=== PATIENT | male | born 1950 | race Caucasian/White ===

== ENCOUNTER 2018-11-12 17:15 | Emergency (ER) | payer MEDICARE ==
[2018-11-12 17:19] VITALS: BP 144/72; PULSE 60; RESP 18; TEMP 98.1
--- NOTE | 2018-11-12 18:10 | ED ---
General Adult HPI - General Chief complaint: Upper Respiratory Infection Stated complaint: head cold/congestion Time Seen by Provider: 11/12/18 17:21 Source: patient Mode of arrival: ambulatory Limitations: no limitations - History of Present Illness Initial comments: Patient is 68-year-old male presenting to emergency Department with earache and nasal congestion. Patient reports the symptoms started 2 days ago and have been progressively increasing severity. Patient reports the pain is localized in the frontal maxillary sinus regions. Patient also reports mild bilateral otalgia. Patient reports rhinorrhea of her past 2 days with yellowish to clear discharge. Patient reports that he is a smoker. Patient reports sore throat and an intermittent dry cough. Patient reports his sinus headache that is not resolving. Patient denies taking any medication to alleviate the pain. Patient reports having a stroke 4 years ago which caused him to lose his right peripheral vision. - Related Data Home Medications Medication Instructions Recorded Confirmed Aspirin 325 mg PO DAILY 08/27/15 01/19/16 Atorvastatin [Lipitor] 20 mg PO HS 08/27/15 01/19/16 Clopidogrel [Plavix] 75 mg PO DAILY 08/27/15 01/19/16 Ergocalciferol [Vitamin D2 50,000 unit PO FR 08/27/15 01/19/16 (DRISDOL)] Famotidine [Pepcid] 20 mg PO BID 08/27/15 01/19/16 Lisinopril [Zestril] 5 mg PO QAM 08/27/15 01/19/16 traMADol HCL [Ultram] 50 mg PO Q12HR PRN 08/27/15 01/19/16 Varenicline Tartrate [Chantix] 1 tab PO DIRECTED 01/15/16 01/19/16 traZODone HCL [Desyrel] 50 mg PO HS 01/15/16 01/19/16 Previous Rx's Medication Instructions Recorded Amoxicillin/Potassium Clav 1 tab PO Q12HR #20 tab 11/12/18 [Augmentin 875-125 Tablet] Allergies Allergy/AdvReac Type Severity Reaction Status Date / Time Penicillins Allergy Rash/Hives Verified 11/12/18 17:19 Sulfa (Sulfonamide Allergy Unknown Verified 11/12/18 17:19 Antibiotics) Review of Systems ROS Statement: Those systems with pertinent positive or pertinent negative responses have been documented in the HPI. ROS Other: All systems not noted in ROS Statement are negative. Past Medical History Past Medical History: No Reported History History of Any Multi-Drug Resistant Organisms: None Reported Past Surgical History: No Surgical Hx Reported Past Psychological History: No Psychological Hx Reported Smoking Status: Current every day smoker Past Alcohol Use History: None Reported Past Drug Use History: Marijuana General Exam - General Exam Comments Initial Comments: Neuro exam unremarkable Limitations: no limitations General appearance: alert, in no apparent distress Head exam: Present: atraumatic, normocephalic, normal inspection Eye exam: Present: normal appearance, PERRL, EOMI, other (Absent right peripheral vision). Absent: conjunctival injection Pupils: Present: normal accommodation ENT exam: Present: normal oropharynx, TM's normal bilaterally (Left tympanic membranes), other (Maxillary and frontal sinus tenderness) Neck exam: Present: normal inspection ( inflamed.), lymphadenopathy Respiratory exam: Present: normal lung sounds bilaterally Cardiovascular Exam: Present: regular rate, normal rhythm, normal heart sounds Neurological exam: Present: alert, oriented X3 Psychiatric exam: Present: normal affect, normal mood Skin exam: Present: warm, normal color Course Vital Signs 11/12/18 17:16 Temperature 98.1 F Pulse Rate 60 Respiratory 18 Rate Blood Pressure 144/72 O2 Sat by Pulse 96 Oximetry Medical Decision Making - Medical Decision Making Patient is 68-year-old male presented to emergency department with earache and sinus congestion.HPI and physical examination I suspect the patient to have a sinus infection. Patient will be placed on a ten-day course of Augmentin. Patient had a mild reaction to penicillin when he was very young but states that he had ampicillin afterwards without any adverse side effects. Patient advised to follow up with primary care. Patient advised to return to emergency department ig symptoms worsen. I counseled the patient for smoking cessation for greater than 3 minutes. Case discussed with position. Disposition Clinical Impression: Sinusitis Disposition: HOME SELF-CARE Condition: Stable Additional Instructions: Please take prescribed medication as directed. Please follow-up with primary care. Please return to emergency department if symptoms worsen. Is patient prescribed a controlled substance at d/c from ED?: No Referrals: Anabella Will DO [Primary Care Provider] - 1-2 days Time of Disposition: 18:04
== END 2018-11-12 19:00 | disposition home or self-care (01) ==
LOC: EC 17:15
DX: J32.9 Chronic sinusitis, unspecified (principal); Z71.6 Tobacco abuse counseling; F17.200 Nicotine dependence, unspecified, uncomplicated; Z79.82 Long term (current) use of aspirin; Z79.02 Long term (current) use of antithrombotics/antiplatelets; Z79.899 Other long term (current) drug therapy; Z88.0 Allergy status to penicillin; Z88.2 Allergy status to sulfonamides
CPT/HCPCS: 99282

== ENCOUNTER 2019-01-10 18:14 | Inpatient (IN) | payer MEDICARE ==
[2019-01-10] MEDS ORDERED: SODIUM CHLORIDE 0.9% 1,000 ML IV STA ×4 (18:41→20:19)
--- NOTE | 2019-01-10 18:42 | ED ---
Fever HPI - General Stated Complaint: fever Time Seen by Provider: 01/10/19 18:41 Source: RN notes reviewed, old records reviewed - History of Present Illness Initial Comments: This is a 68-year-old male the ER for evaluation presented by family for not feeling well depression secondary to recent passing. Denies abdominal pain no nausea no vomiting. Patient has been having increasingly symptoms of weakness and not feeling well. Mild nausea no vomiting no diarrhea. Patient also presented with persistent nausea vomiting and fever MD Complaint: fever, weakness, other ([place]) -: days(s) Temperature Source: oral Associated Symptoms: chills, myalgias, abdominal pain, nausea, vomiting Treatments Prior to Arrival: none - Related Data Home Medications Medication Instructions Recorded Confirmed Clopidogrel [Plavix] 75 mg PO DAILY 08/27/15 01/10/19 Famotidine [Pepcid] 20 mg PO BID 08/27/15 01/10/19 FLUoxetine HCL [PROzac] 20 mg PO DAILY 01/10/19 01/10/19 Aspirin EC [Ecotrin] 325 mg PO DAILY 01/12/19 01/12/19 Atorvastatin [Lipitor] 40 mg PO DAILY 01/12/19 01/12/19 Lisinopril [Zestril] 10 mg PO DAILY 01/12/19 01/12/19 amLODIPine BESYLATE 5 mg PO DAILY 01/12/19 01/12/19 traMADol HCl [Ultram] 50 mg PO BID 01/12/19 01/12/19 Allergies Allergy/AdvReac Type Severity Reaction Status Date / Time Penicillins Allergy Rash/Hives Verified 01/10/19 19:02 Sulfa (Sulfonamide Allergy Unknown Verified 01/10/19 19:02 Antibiotics) Review of Systems ROS Statement: Those systems with pertinent positive or pertinent negative responses have been documented in the HPI. ROS Other: All systems not noted in ROS Statement are negative. Past Medical History Past Medical History: No Reported History History of Any Multi-Drug Resistant Organisms: None Reported Past Surgical History: No Surgical Hx Reported Past Psychological History: No Psychological Hx Reported Smoking Status: Current every day smoker Past Alcohol Use History: None Reported Past Drug Use History: Marijuana General Exam General appearance: alert, lethargic, cachectic Head exam: Present: atraumatic, normocephalic, normal inspection Eye exam: Present: normal appearance, PERRL, EOMI. Absent: scleral icterus, conjunctival injection, periorbital swelling ENT exam: Present: normal exam, mucous membranes dry Neck exam: Present: normal inspection. Absent: tenderness, meningismus, lymphadenopathy Respiratory exam: Present: normal lung sounds bilaterally. Absent: respiratory distress, wheezes, rales, rhonchi, stridor Cardiovascular Exam: Present: regular rate, normal rhythm, normal heart sounds. Absent: systolic murmur, diastolic murmur, rubs, gallop, clicks GI/Abdominal exam: Present: soft, normal bowel sounds. Absent: distended, tenderness, guarding, rebound, rigid Extremities exam: Present: normal inspection, full ROM, normal capillary refill. Absent: tenderness, pedal edema, joint swelling, calf tenderness Back exam: Present: normal inspection Neurological exam: Present: alert, oriented X3, CN II-XII intact Psychiatric exam: Present: normal affect, normal mood Skin exam: Present: warm, dry, intact, normal color. Absent: rash Course Vital Signs 01/10/19 01/10/19 01/10/19 18:34 18:38 19:00 Temperature 102.9 F H Pulse Rate 83 Pulse Rate [ Pulse Oximetery ] Respiratory 19 Rate Blood Pressure 156/88 156/88 Blood Pressure [Left Arm] O2 Sat by Pulse 92 L 95 94 L Oximetry 01/10/19 01/10/19 01/10/19 19:41 20:00 21:00 Temperature Pulse Rate 85 Pulse Rate [ Pulse Oximetery ] Respiratory 18 Rate Blood Pressure 139/56 139/56 135/65 Blood Pressure [Left Arm] O2 Sat by Pulse 96 Oximetry 01/10/19 01/10/19 01/10/19 21:09 22:00 23:00 Temperature 99.9 F H Pulse Rate 83 87 Pulse Rate [ Pulse Oximetery ] Respiratory 18 Rate Blood Pressure 144/65 135/66 126/74 Blood Pressure [Left Arm] O2 Sat by Pulse 96 93 L Oximetry 01/10/19 01/11/19 01/11/19 23:34 00:00 01:00 Temperature 99.3 F Pulse Rate 77 73 68 Pulse Rate [ Pulse Oximetery ] Respiratory 18 Rate Blood Pressure 131/73 131/73 103/54 Blood Pressure [Left Arm] O2 Sat by Pulse 95 Oximetry 01/11/19 01/11/19 01/11/19 02:00 02:12 03:00 Temperature 98.7 F Pulse Rate 62 75 65 Pulse Rate [ Pulse Oximetery ] Respiratory 18 Rate Blood Pressure 140/105 124/72 124/71 Blood Pressure [Left Arm] O2 Sat by Pulse 96 Oximetry 01/11/19 01/11/19 01/11/19 04:00 04:04 05:00 Temperature 98.8 F Pulse Rate 72 72 65 Pulse Rate [ Pulse Oximetery ] Respiratory 18 Rate Blood Pressure 148/87 148/87 148/87 Blood Pressure [Left Arm] O2 Sat by Pulse 99 Oximetry 01/11/19 01/11/19 01/11/19 06:00 06:41 07:00 Temperature 98.5 F Pulse Rate 60 65 66 Pulse Rate [ Pulse Oximetery ] Respiratory 18 Rate Blood Pressure 148/87 120/97 120/97 Blood Pressure [Left Arm] O2 Sat by Pulse 96 Oximetry 01/11/19 01/11/19 01/11/19 08:00 08:45 09:00 Temperature 99.3 F Pulse Rate 62 72 Pulse Rate [ 72 Pulse Oximetery ] Respiratory 16 15 Rate Blood Pressure 120/97 144/70 Blood Pressure 144/70 [Left Arm] O2 Sat by Pulse 94 L Oximetry 01/11/19 10:00 Temperature Pulse Rate 66 Pulse Rate [ Pulse Oximetery ] Respiratory 17 Rate Blood Pressure 144/70 Blood Pressure [Left Arm] O2 Sat by Pulse Oximetry - Reevaluation(s) Reevaluation #1: Medical record reviewed Patient has symptomatic improvement, feeling better with hydration Medical Decision Making - Medical Decision Making 68 male the ER for evaluation, patient has known fever. Patient has significant fever of unknown origin, will admit for broad-spectrum IV antibiotics and fluid resuscitation monitoring of cardiopulmonary status - Lab Data Result diagrams: 01/15/19 05:16 01/15/19 05:16 Lab Results 01/10/19 01/10/19 01/10/19 Range/Units 19:23 19:23 19:23 WBC 9.3 (3.8-10.6) k/uL RBC 4.09 L (4.30-5.90) m/uL Hgb 12.9 L (13.0-17.5) gm/dL Hct 38.1 L (39.0-53.0) % MCV 93.2 (80.0-100.0) fL MCH 31.5 (25.0-35.0) pg MCHC 33.8 (31.0-37.0) g/dL RDW 15.5 (11.5-15.5) % Plt Count 155 (150-450) k/uL Neutrophils % (Manual) 84 % Band Neutrophils % 15 % Monocytes % (Manual) 1 % Neutrophils # (Manual) 9.20 H (1.3-7.7) k/uL Monocytes # (Manual) 0.09 (0-1.0) k/uL Nucleated RBCs 0 (0-0) /100 WBC Manual Slide Review Performed Hypochromasia (manual) Present Sodium 139 (137-145) mmol/L Potassium 3.1 L (3.5-5.1) mmol/L Chloride 107 (98-107) mmol/L Carbon Dioxide 22 (22-30) mmol/L Anion Gap 10 mmol/L BUN 10 (9-20) mg/dL Creatinine 0.87 (0.66-1.25) mg/dL Est GFR (CKD-EPI)AfAm >90 (>60 ml/min/1.73 sqM) Est GFR (CKD-EPI)NonAf 88 (>60 ml/min/1.73 sqM) Glucose 130 H (74-99) mg/dL Lactic Ac Sepsis Rflx Plasma Lactic Acid Chet 5.8 H* (0.7-2.0) mmol/L Calcium 8.3 L (8.4-10.2) mg/dL Phosphorus 0.9 L* (2.5-4.5) mg/dL Magnesium 1.5 L (1.6-2.3) mg/dL Total Bilirubin 2.9 H (0.2-1.3) mg/dL AST 351 H (17-59) U/L ALT 170 H (21-72) U/L Alkaline Phosphatase 602 H (38-126) U/L Total Protein 5.6 L (6.3-8.2) g/dL Albumin 3.0 L (3.5-5.0) g/dL Lipase 32 (23-300) U/L 01/10/19 Range/Units 19:48 WBC (3.8-10.6) k/uL RBC (4.30-5.90) m/uL Hgb (13.0-17.5) gm/dL Hct (39.0-53.0) % MCV (80.0-100.0) fL MCH (25.0-35.0) pg MCHC (31.0-37.0) g/dL RDW (11.5-15.5) % Plt Count (150-450) k/uL Neutrophils % (Manual) % Band Neutrophils % % Monocytes % (Manual) % Neutrophils # (Manual) (1.3-7.7) k/uL Monocytes # (Manual) (0-1.0) k/uL Nucleated RBCs (0-0) /100 WBC Manual Slide Review Hypochromasia (manual) Sodium (137-145) mmol/L Potassium (3.5-5.1) mmol/L Chloride (98-107) mmol/L Carbon Dioxide (22-30) mmol/L Anion Gap mmol/L BUN (9-20) mg/dL Creatinine (0.66-1.25) mg/dL Est GFR (CKD-EPI)AfAm (>60 ml/min/1.73 sqM) Est GFR (CKD-EPI)NonAf (>60 ml/min/1.73 sqM) Glucose (74-99) mg/dL Lactic Ac Sepsis Rflx Y Plasma Lactic Acid Chet (0.7-2.0) mmol/L Calcium (8.4-10.2) mg/dL Phosphorus (2.5-4.5) mg/dL Magnesium (1.6-2.3) mg/dL Total Bilirubin (0.2-1.3) mg/dL AST (17-59) U/L ALT (21-72) U/L Alkaline Phosphatase (38-126) U/L Total Protein (6.3-8.2) g/dL Albumin (3.5-5.0) g/dL Lipase (23-300) U/L - Radiology Data Radiology results: report reviewed (CXR negative for acute disease, US gallbladder, CT of abdomen pelvis patient does have significant kidney stone ascending cholangitis), image reviewed Critical Care Time Critical Care Time: Yes Total Critical Care Time: 31 Disposition Clinical Impression: Sepsis, Fever, Anorexia, Malnutrition, Ascending cholangitis Disposition: ADMITTED IP TO THIS [facility] Condition: Serious Is patient prescribed a controlled substance at d/c from ED?: No
[2019-01-10] MEDS ORDERED: ACETAMINOPHEN TAB 500 MG TAB PO STA (18:51)
[2019-01-10] MEDS ORDERED: IBUPROFEN 800 MG TAB PO STA (18:51)
[2019-01-10 19:48] LABS: ALT 170 U/L (21-72); AST 351 U/L (17-59); African American GFR (CKD) >90 (>60 ml/min/1.73 sqM); Alkaline Phosphatase 602 U/L (38-126); Anion Gap 10 mmol/L; Blood Urea Nitrogen 10 mg/dL (9-20); Calcium 8.3 mg/dL (8.4-10.2); Carbon Dioxide 22 mmol/L (22-30); Chloride 107 mmol/L (98-107); Glucose 130 mg/dL (74-99); Lipase 32 U/L (23-300); Magnesium 1.5 mg/dL (1.6-2.3); Potassium 3.1 mmol/L (3.5-5.1); Sodium 139 mmol/L (137-145); Total Bilirubin 2.9 mg/dL (0.2-1.3); Total Protein 5.6 g/dL (6.3-8.2)
[2019-01-10 19:52] LABS: HCT 38.1 % (39.0-53.0); HGB 12.9 gm/dL (13.0-17.5); MCH 31.5 pg (25.0-35.0); MCHC 33.8 g/dL (31.0-37.0); MCV 93.2 fL (80.0-100.0); Mean Platelet Volume 8.3; Platelet Count 155 k/uL (150-450); RBC 4.09 m/uL (4.30-5.90); RDW 15.5 % (11.5-15.5); WBC 9.3 k/uL (3.8-10.6)
[2019-01-10 19:57] LABS: Phosphorus 0.9 mg/dL (2.5-4.5)
--- NOTE | 2019-01-10 19:57 | XR ---
EXAMINATION TYPE: XR chest 2V DATE OF EXAM: 01/10/2019 COMPARISON: NONE HISTORY: Vomiting. Fever. TECHNIQUE: Frontal and lateral views of the chest are obtained. FINDINGS: There is no heart failure nor confluent pneumonic infiltrate. Costophrenic angles are adeel r. Thoracic aorta is atheromatous. IMPRESSION: No active cardiopulmonary disease. Normal heart. No change.
[2019-01-10 20:10] LABS: Band Neutrophils % 15 %; Hypochromasia (M) Present; Monocytes # (M) 0.09 k/uL (0-1.0); Neutrophils % (M) 84 %; Nucleated Red Blood Cells 0 /100 WBC (0-0); Total Cells Counted 100
[2019-01-10] MEDS: MAGNESIUM SULFATE-D5W PMX 1 GM in DEXTROSE/WATER 1 100ML.BAG IVPB SCH ×2 (21:04→22:23)
[2019-01-10] MEDS: SODIUM PHOSPHATE 10 MMOL in SODIUM CHLORIDE 0.9% 250 ML IVPB SCH ×2 (21:04→23:27)
[2019-01-10] MEDS ORDERED: metroNIDAZOLE-NS PMX 500 MG in SALINE 1 100ML.BAG IVPB STA (21:04)
[2019-01-10] MEDS: SODIUM CHLORIDE 0.9% 1,000 ML IV SCH (21:14)
--- NOTE | 2019-01-10 21:17 | US ---
EXAMINATION TYPE: US gallbladder DATE OF EXAM: 01/10/2019 COMPARISON: NONE CLINICAL HISTORY: Pain. RUQ pain x 2 days. Nausea,vomiting. EXAM MEASUREMENTS: Liver Length: 14.1 cm Gallbladder Wall: not visualized CBD: 1.69 cm Right Kidney: 11.2 x 5.3 x 5.2 cm *Limited due to gas Pancreas: Limited. Duct measures 0.24 cm Liver: Appears to have ductal dilation. Increased vascularity? Gallbladder: Not seen with certainty. Evidence for sonographic Araya's sign: no CBD: appears dilated Right Kidney: Two hypoechoic areas seen. Larger measures: 7.4 x 6.0 x 5.4 cm. IMPRESSION: There is a 7 cm right renal cortical cyst. Gallbladder not seen. No evidence of pancreati c mass. Dilated common bile duct measures 1.7 cm. No focal liver defect.
[2019-01-10] MEDS: SODIUM CHLORIDE 0.9% 500 ML 500 ML IV SCH ×2 (22:23→22:24)
[2019-01-10 22:27] LABS: Appearance,Urine Clear (Clear); Bacteria,Urine Rare /hpf; Bilirubin,Urine Negative (Negative); Blood,Urine Small (Negative); Color,Urine Yellow; Glucose,Urine (UA) Negative (Negative); Ketones,Urine Negative (Negative); Leukocyte Esterase,Urine Negative (Negative); Mucus,Urine Rare /hpf; Nitrite,Urine Negative (Negative); Protein,Urine Negative (Negative); RBC,Urine 1 /hpf (0-5); Specific Gravity,Urine 1.007 (1.001-1.035); Urobilinogen,Urine <2.0 mg/dL (<2.0); WBC,Urine 1 /hpf (0-5)
--- NOTE | 2019-01-10 22:52 | CT ---
EXAM: CT Abdomen and Pelvis With Intravenous Contrast CLINICAL HISTORY: CT Reason: Pain TECHNIQUE: Axial computed tomography images of the abdomen and pelvis with 100 mL of Isovue-300 intravenous contrast. CTDI is 14.1 mGy and DLP is 672.3 mGy-cm. This CT exam was performed using one or more of the following dose reduction techniques: automated exposure control, adjustment of the mA and/or kV according to patient size, and/or use of iterative reconstruction technique. COMPARISON: No relevant prior studies available. FINDINGS: Lung bases: Unremarkable. No mass. No consolidation. ABDOMEN: Liver: Unremarkable. No mass. Gallbladder and bile ducts: Choledocholithiasis with a 7.9 mm stone in the distal common duct the common duct and intrahepatic ducts are dilated the common duct measures up to 13 mm. The gallbladder is surgically absent.. Pancreas: Unremarkable. No mass. No ductal dilation. Spleen: Unremarkable. No splenomegaly. Adrenals: Unremarkable. No mass. Kidneys and ureters: Multiple bilateral renal cysts. 6.3 cm cyst midpole right kidney multiple cysts in the left kidney the largest measuring 3.6 cm Stomach and bowel: Unremarkable. No obstruction. No mucosal thickening. PELVIS: Appendix: The appendix is not adequately identified. No inflammatory changes are noted around the cecum. Minimal thickening of the ascending colon this may simple represent incompletely distended colon. Bladder: Unremarkable. No mass. Reproductive: Unremarkable as visualized. ABDOMEN and PELVIS: Intraperitoneal space: Unremarkable. No free air. No significant fluid collection. Bones/joints: No acute fracture. No dislocation. Soft tissues: Unremarkable. Vasculature: Unremarkable. No abdominal aortic aneurysm. Lymph nodes: Unremarkable. No enlarged lymph nodes. IMPRESSION: Choledocholithiasis with 7.9 mm stone in the common duct near the ampulla with common duct dilated to 13 mm. Intrahepatic ductal dilatation is present as well. Minimal thickening suggests of the ascending colon but this may simply represent incomplete distention
[2019-01-11] MEDS: SODIUM PHOSPHATE 10 MMOL in SODIUM CHLORIDE 0.9% 250 ML IVPB SCH (02:09)
[2019-01-11] MEDS: SODIUM CHLORIDE 0.9% 1,000 ML IV SCH ×4 (04:46→23:09)
[2019-01-11] MEDS: metroNIDAZOLE-NS PMX 500 MG in SALINE 1 100ML.BAG IVPB SCH ×3 (06:38→23:02)
[2019-01-11] MEDS: PANTOPRAZOLE 40 MG/10 ML VIAL IV SCH (08:38)
[2019-01-11] MEDS ORDERED: ENOXAPARIN 40 MG/0.4 ML SYRINGE SQ SCH (09:00)
[2019-01-11 10:25] LABS: Glucose,Whole Blood 104 mg/dL (75-99)
--- NOTE | 2019-01-11 11:07 | P.GSCN ---
History of Present Illness Consult date: 01/11/19 Reason for Consult: abnormal labs Requesting physician: Mukund Block History of present illness: CHIEF COMPLAINT: nausea, vomiting, abdominal pain HISTORY OF PRESENT ILLNESS: 68-year-old male who presented to the emergency room with a chief complaint of nausea, vomiting, right upper quadrant pain, epigastric pain that started suddenly yesterday morning. Denies constipation or diarrhea. Reports last bowel movement was on Monday. Denies hematemesis, hematochezia, or melena. Patient unsure if he was febrile at home. Laboratory data upon admission reveals white count 9.3. Hemoglobin 12.9. Lactic acid 5.8. Bilirubin 2.9. AST 351. ALT 170. Alkaline phosphatase 602. lipase 32. CT abdomen and pelvis completed revealed choledocholithiasis with 7.9 mm stone in the common bile duct near the ampulla with count bile duct dilated to 13 mm. Intrahepatic ductal dilation is present as well. PAST MEDICAL HISTORY: See list. PAST SURGICAL HISTORY: See list. SOCIAL HISTORY: No illicit drug use. REVIEW OF SYSTEMS: CONSTITUTIONAL: Denies fever or chills. HEENT: Denies blurred vision, vision changes, or eye pain. Denies hemoptysis CARDIOVASCULAR: Denies chest pain or pressure. RESPIRATORY: No shortness of breath. GASTROINTESTINAL: Refer to HPI for pertinent findings HEMATOLOGIC: Denies bleeding disorders. GENITOURINARY: Denies any blood in urine. SKIN: Denies pruitis. Denies rash. PHYSICAL EXAM: VITAL SIGNS: Reviewed. GENERAL: Well-developed in no acute distress. HEENT: No sclera icterus. Extraocular movements grossly intact. Moist buccal mucosa. Head is atraumatic, normocephalic. ABDOMEN: Soft. Nondistended. Tenderness to palpation of epigastric region and right upper quadrant. Positive bowel sounds. NEUROLOGIC: Alert and oriented. Cranial nerves II through XII grossly intact. ASSESSMENT: 1. Abdominal pain, nausea, vomiting x 1 day 2. Choledocholithiasis 3. Elevated LFTs 4. History of cholecystectomy PLAN: NPO. Continue IV fluids. Continue IV antibiotics. Monitor labs. GI on consult for ERCP. No surgical intervention recommended at this time. Will continue to monitor. Further recommendations pending patient course. Nurse practitioner note has been reviewed by physician. Signing provider agrees with the documented findings, assessment, and plan of care. Past Medical History Past Medical History: No Reported History History of Any Multi-Drug Resistant Organisms: None Reported Past Surgical History: No Surgical Hx Reported Past Psychological History: No Psychological Hx Reported Smoking Status: Current every day smoker Past Alcohol Use History: None Reported Past Drug Use History: Marijuana Medications and Allergies Home Medications Medication Instructions Recorded Confirmed Type Clopidogrel [Plavix] 75 mg PO DAILY 08/27/15 01/10/19 History Famotidine [Pepcid] 20 mg PO BID 08/27/15 01/10/19 History FLUoxetine HCL [PROzac] 20 mg PO DAILY 01/10/19 01/10/19 History Allergies Allergy/AdvReac Type Severity Reaction Status Date / Time Penicillins Allergy Rash/Hives Verified 01/10/19 19:02 Sulfa (Sulfonamide Allergy Unknown Verified 01/10/19 19:02 Antibiotics) Surgical - Exam Vital Signs Temp Pulse Resp BP Pulse Ox 102.9 F H 83 19 156/88 95 01/10/19 18:38 01/10/19 18:38 01/10/19 18:38 01/10/19 18:38 01/10/19 18:38 Results - Labs 01/10/19 19:23 01/10/19 19:23 Abnormal Lab Results - Last 24 Hours (Table) 01/10/19 01/10/19 01/10/19 Range/Units 19:23 19:23 19:23 RBC 4.09 L (4.30-5.90) m/uL Hgb 12.9 L (13.0-17.5) gm/dL Hct 38.1 L (39.0-53.0) % Neutrophils # (Manual) 9.20 H (1.3-7.7) k/uL Potassium 3.1 L (3.5-5.1) mmol/L Glucose 130 H (74-99) mg/dL POC Glucose (mg/dL) (75-99) mg/dL Plasma Lactic Acid Chet 5.8 H* (0.7-2.0) mmol/L Calcium 8.3 L (8.4-10.2) mg/dL Phosphorus 0.9 L* (2.5-4.5) mg/dL Magnesium 1.5 L (1.6-2.3) mg/dL Total Bilirubin 2.9 H (0.2-1.3) mg/dL AST 351 H (17-59) U/L ALT 170 H (21-72) U/L Alkaline Phosphatase 602 H (38-126) U/L Total Protein 5.6 L (6.3-8.2) g/dL Albumin 3.0 L (3.5-5.0) g/dL Urine Blood (Negative) Urine Bacteria (None) /hpf Urine Mucus (None) /hpf 01/10/19 01/10/19 01/11/19 Range/Units 22:20 23:02 03:15 RBC (4.30-5.90) m/uL Hgb (13.0-17.5) gm/dL Hct (39.0-53.0) % Neutrophils # (Manual) (1.3-7.7) k/uL Potassium (3.5-5.1) mmol/L Glucose (74-99) mg/dL POC Glucose (mg/dL) (75-99) mg/dL Plasma Lactic Acid Chet 3.0 H* 2.7 H* (0.7-2.0) mmol/L Calcium (8.4-10.2) mg/dL Phosphorus (2.5-4.5) mg/dL Magnesium (1.6-2.3) mg/dL Total Bilirubin (0.2-1.3) mg/dL AST (17-59) U/L ALT (21-72) U/L Alkaline Phosphatase (38-126) U/L Total Protein (6.3-8.2) g/dL Albumin (3.5-5.0) g/dL Urine Blood Small H (Negative) Urine Bacteria Rare H (None) /hpf Urine Mucus Rare H (None) /hpf 01/11/19 01/11/19 Range/Units 07:37 10:22 RBC (4.30-5.90) m/uL Hgb (13.0-17.5) gm/dL Hct (39.0-53.0) % Neutrophils # (Manual) (1.3-7.7) k/uL Potassium (3.5-5.1) mmol/L Glucose (74-99) mg/dL POC Glucose (mg/dL) 104 H (75-99) mg/dL Plasma Lactic Acid Chet 2.3 H* (0.7-2.0) mmol/L Calcium (8.4-10.2) mg/dL Phosphorus (2.5-4.5) mg/dL Magnesium (1.6-2.3) mg/dL Total Bilirubin (0.2-1.3) mg/dL AST (17-59) U/L ALT (21-72) U/L Alkaline Phosphatase (38-126) U/L Total Protein (6.3-8.2) g/dL Albumin (3.5-5.0) g/dL Urine Blood (Negative) Urine Bacteria (None) /hpf Urine Mucus (None) /hpf Microbiology - Last 24 Hours (Table) 01/10/19 22:20 Urine Culture - Preliminary Urine,Voided Diabetes panel 01/10/19 Range/Units 19:23 Sodium 139 (137-145) mmol/L Potassium 3.1 L (3.5-5.1) mmol/L Chloride 107 (98-107) mmol/L Carbon Dioxide 22 (22-30) mmol/L BUN 10 (9-20) mg/dL Creatinine 0.87 (0.66-1.25) mg/dL Glucose 130 H (74-99) mg/dL Calcium 8.3 L (8.4-10.2) mg/dL AST 351 H (17-59) U/L ALT 170 H (21-72) U/L Alkaline Phosphatase 602 H (38-126) U/L Total Protein 5.6 L (6.3-8.2) g/dL Albumin 3.0 L (3.5-5.0) g/dL Calcium panel 01/10/19 Range/Units 19:23 Calcium 8.3 L (8.4-10.2) mg/dL Phosphorus 0.9 L* (2.5-4.5) mg/dL Albumin 3.0 L (3.5-5.0) g/dL Pituitary panel 01/10/19 Range/Units 19:23 Sodium 139 (137-145) mmol/L Potassium 3.1 L (3.5-5.1) mmol/L Chloride 107 (98-107) mmol/L Carbon Dioxide 22 (22-30) mmol/L BUN 10 (9-20) mg/dL Creatinine 0.87 (0.66-1.25) mg/dL Glucose 130 H (74-99) mg/dL Calcium 8.3 L (8.4-10.2) mg/dL Adrenal panel 01/10/19 Range/Units 19:23 Sodium 139 (137-145) mmol/L Potassium 3.1 L (3.5-5.1) mmol/L Chloride 107 (98-107) mmol/L Carbon Dioxide 22 (22-30) mmol/L BUN 10 (9-20) mg/dL Creatinine 0.87 (0.66-1.25) mg/dL Glucose 130 H (74-99) mg/dL Calcium 8.3 L (8.4-10.2) mg/dL Total Bilirubin 2.9 H (0.2-1.3) mg/dL AST 351 H (17-59) U/L ALT 170 H (21-72) U/L Alkaline Phosphatase 602 H (38-126) U/L Total Protein 5.6 L (6.3-8.2) g/dL Albumin 3.0 L (3.5-5.0) g/dL
[2019-01-11] MEDS ORDERED: SODIUM CHLORIDE 0.9% 1,000 ML IV ONE (12:00)
[2019-01-11 13:36] LABS: HCT 36.9 % (39.0-53.0); HGB 11.6 gm/dL (13.0-17.5); MCH 30.8 pg (25.0-35.0); MCHC 31.5 g/dL (31.0-37.0); MCV 97.7 fL (80.0-100.0); Platelet Count 129 k/uL (150-450); RBC 3.78 m/uL (4.30-5.90); RDW 15.1 % (11.5-15.5); WBC 18.5 k/uL (3.8-10.6)
[2019-01-11 13:46] LABS: ALT 152 U/L (21-72); AST 204 U/L (17-59); African American GFR (CKD) >90 (>60 ml/min/1.73 sqM); Albumin 2.5 g/dL (3.5-5.0); Alkaline Phosphatase 458 U/L (38-126); Anion Gap 9 mmol/L; Blood Urea Nitrogen 9 mg/dL (9-20); Calcium 7.9 mg/dL (8.4-10.2); Carbon Dioxide 21 mmol/L (22-30); Chloride 112 mmol/L (98-107); Glucose 93 mg/dL (74-99); Potassium 2.9 mmol/L (3.5-5.1); Sodium 142 mmol/L (137-145); Total Bilirubin 3.3 mg/dL (0.2-1.3); Total Protein 5.1 g/dL (6.3-8.2)
[2019-01-11 13:58] LABS: INR 1.5 (<1.2); Prothrombin Time 15.4 sec (9.0-12.0)
[2019-01-11] MEDS ORDERED: Potassium Replacement Protocol 1 EACH MISC MISCELLANE PRN (13:59)
[2019-01-11 14:01] LABS: Toxic Granulation Present; Toxic Vacuolation Present
[2019-01-11 14:04] LABS: Band Neutrophils % 12 %; Lymphocytes # (M) 0.19 k/uL (1.0-4.8); Monocytes # (M) 0.93 k/uL (0-1.0); Neutrophils % (M) 83 %; Nucleated Red Blood Cells 0 /100 WBC (0-0); Total Cells Counted 200
[2019-01-11 14:05] LABS: Poikilocytosis (M) Present
--- NOTE | 2019-01-11 14:39 | P.HPIM ---
History of Present Illness H&P Date: 01/11/19 Chief Complaint: weakness Russell Frazier is a 68 yo M with PMH significant for COPD, major depressive disorder, HLD who was brought into [facility] ED via EMS for nausea/vomiting and weakness. He has had RUQ pain and felt chilled for approx 2 days, then vomited multiple times throughout the day yesterday. His daughter called EMS as pt was too weak to get out of bed after vomiting. Pt states that his approx 1 month ago and since then he has stopped taking care of himself and has had nothing but [employer] biscuits and hamburgers to eat in the past few weeks. He denies alcohol use but smoking tobacco and MJ daily. In the ED he was febrile to 102, WBC 18, elevated alk phos, bilirubin and lactic. CT abd/pelvis revealed dilated CBD with 8 mm stone. Blood cultures drawn and pt started on Review of Systems All systems: negative Constitutional: Reports fatigue, Reports fever, Reports lethargy, Reports malaise, Reports weakness Eyes: denies blurred vision, denies pain Ears, nose, mouth and throat: Denies headache, Denies sore throat Cardiovascular: Denies chest pain, Denies shortness of breath Respiratory: Denies cough, Denies dyspnea Gastrointestinal: Reports abdominal pain, Reports loss of appetite, Reports nausea, Reports vomiting, Denies diarrhea, Denies melena Musculoskeletal: Denies myalgias Integumentary: Denies pruritus, Denies rash Neurological: Denies numbness, Denies weakness Psychiatric: Reports anhedonia, Reports depression, Denies anxiety Endocrine: Denies fatigue, Denies weight change Past Medical History Past Medical History: No Reported History History of Any Multi-Drug Resistant Organisms: None Reported Past Surgical History: No Surgical Hx Reported Past Anesthesia/Blood Transfusion Reactions: No Reported Reaction Past Psychological History: No Psychological Hx Reported Smoking Status: Current every day smoker Past Alcohol Use History: None Reported Past Drug Use History: Marijuana Medications and Allergies Home Medications Medication Instructions Recorded Confirmed Type Clopidogrel [Plavix] 75 mg PO DAILY 08/27/15 01/10/19 History Famotidine [Pepcid] 20 mg PO BID 08/27/15 01/10/19 History FLUoxetine HCL [PROzac] 20 mg PO DAILY 01/10/19 01/10/19 History Allergies Allergy/AdvReac Type Severity Reaction Status Date / Time Penicillins Allergy Rash/Hives Verified 01/10/19 19:02 Sulfa (Sulfonamide Allergy Unknown Verified 01/10/19 19:02 Antibiotics) Physical Exam Vitals: Vital Signs Temp Pulse Pulse Resp BP BP Pulse Ox 01/11/19 08:45 99.3 F 72 16 144/70 94 L 01/11/19 06:41 98.5 F 65 18 120/97 96 01/11/19 04:04 98.8 F 72 18 148/87 99 01/11/19 02:12 98.7 F 75 18 124/72 96 01/10/19 23:34 99.3 F 77 18 131/73 95 01/10/19 21:09 99.9 F H 83 18 144/65 96 01/10/19 19:41 85 18 139/56 96 01/10/19 18:38 102.9 F H 83 19 156/88 95 Intake and Output 01/10/19 01/11/19 01/11/19 22:59 06:59 14:59 Other: Weight 66.678 kg General: thin, appears stated age, NAD. Vitals reviewed Eyes: PERRL, EOMI, conjunctiva normal HENT: normocephalic, mucus membranes moist Neck: supple, no JVD Lungs: normal respiratory effort, no wheezes or rales CV: Regular rate and rhythm, no murmur. Peripheral pulses 2+ Abdomen: soft, no organomegaly. RUQ and epigastric TTP Lymph: no cervical or axillary LAD Skin: warm, diaphoretic Neuro: A&Ox3, depressed mood Results CBC & Chem 7: 01/11/19 03:15 01/11/19 03:15 Labs: Abnormal Lab Results - Last 24 Hours (Table) 01/10/19 01/10/19 01/10/19 Range/Units 19:23 19:23 19:23 RBC 4.09 L (4.30-5.90) m/uL Hgb 12.9 L (13.0-17.5) gm/dL Hct 38.1 L (39.0-53.0) % Neutrophils # (Manual) 9.20 H (1.3-7.7) k/uL Potassium 3.1 L (3.5-5.1) mmol/L Glucose 130 H (74-99) mg/dL POC Glucose (mg/dL) (75-99) mg/dL Plasma Lactic Acid Chet 5.8 H* (0.7-2.0) mmol/L Calcium 8.3 L (8.4-10.2) mg/dL Phosphorus 0.9 L* (2.5-4.5) mg/dL Magnesium 1.5 L (1.6-2.3) mg/dL Total Bilirubin 2.9 H (0.2-1.3) mg/dL AST 351 H (17-59) U/L ALT 170 H (21-72) U/L Alkaline Phosphatase 602 H (38-126) U/L Total Protein 5.6 L (6.3-8.2) g/dL Albumin 3.0 L (3.5-5.0) g/dL Urine Blood (Negative) Urine Bacteria (None) /hpf Urine Mucus (None) /hpf 01/10/19 01/10/19 01/11/19 Range/Units 22:20 23:02 03:15 RBC (4.30-5.90) m/uL Hgb (13.0-17.5) gm/dL Hct (39.0-53.0) % Neutrophils # (Manual) (1.3-7.7) k/uL Potassium (3.5-5.1) mmol/L Glucose (74-99) mg/dL POC Glucose (mg/dL) (75-99) mg/dL Plasma Lactic Acid Chet 3.0 H* 2.7 H* (0.7-2.0) mmol/L Calcium (8.4-10.2) mg/dL Phosphorus (2.5-4.5) mg/dL Magnesium (1.6-2.3) mg/dL Total Bilirubin (0.2-1.3) mg/dL AST (17-59) U/L ALT (21-72) U/L Alkaline Phosphatase (38-126) U/L Total Protein (6.3-8.2) g/dL Albumin (3.5-5.0) g/dL Urine Blood Small H (Negative) Urine Bacteria Rare H (None) /hpf Urine Mucus Rare H (None) /hpf 01/11/19 01/11/19 01/11/19 Range/Units 07:37 10:22 11:07 RBC (4.30-5.90) m/uL Hgb (13.0-17.5) gm/dL Hct (39.0-53.0) % Neutrophils # (Manual) (1.3-7.7) k/uL Potassium (3.5-5.1) mmol/L Glucose (74-99) mg/dL POC Glucose (mg/dL) 104 H (75-99) mg/dL Plasma Lactic Acid Chet 2.3 H* 3.2 H* (0.7-2.0) mmol/L Calcium (8.4-10.2) mg/dL Phosphorus (2.5-4.5) mg/dL Magnesium (1.6-2.3) mg/dL Total Bilirubin (0.2-1.3) mg/dL AST (17-59) U/L ALT (21-72) U/L Alkaline Phosphatase (38-126) U/L Total Protein (6.3-8.2) g/dL Albumin (3.5-5.0) g/dL Urine Blood (Negative) Urine Bacteria (None) /hpf Urine Mucus (None) /hpf Microbiology - Last 24 Hours (Table) 01/10/19 22:20 Urine Culture - Preliminary Urine,Voided Thrombosis Risk Factor Assmnt - Choose All That Apply Each Risk Factor Represents 2 Points: Age 61-74 years Thrombosis Risk Factor Assessment Total Risk Factor Score: 2 Thrombosis Risk Factor Assessment Level: Low Risk Assessment and Plan (1) Severe sepsis with acute organ dysfunction due to Gram negative bacteria Current Visit: Yes Status: Acute Code(s): A41.50 - GRAM-NEGATIVE SEPSIS, UNSPECIFIED; R65.20 - SEVERE SEPSIS WITHOUT SEPTIC SHOCK SNOMED Code(s): 586755693738938 (2) Choledocholithiasis Current Visit: Yes Status: Acute Code(s): K80.50 - CALCULUS OF BILE DUCT W/O CHOLANGITIS OR CHOLECYST W/O OBST SNOMED Code(s): 452632612 (3) Obstructive jaundice Current Visit: Yes Status: Acute Code(s): K83.1 - OBSTRUCTION OF BILE DUCT SNOMED Code(s): 26815514 (4) Malnutrition Current Visit: Yes Status: Acute Code(s): E46 - UNSPECIFIED PROTEIN-CALORIE MALNUTRITION SNOMED Code(s): 73649762 (5) Hypocalcemia Current Visit: Yes Status: Acute Code(s): E83.51 - HYPOCALCEMIA SNOMED Code(s): 3644081 (6) Hypokalemia Current Visit: Yes Status: Acute Code(s): E87.6 - HYPOKALEMIA SNOMED Code(s): 96527831 Plan: 1. Severe sepsis with end organ dysfunction. Abdominal source. SIRS 2/4 on admission. Blood culture gram negative rods. Received 5 L NS bolus and with lactate normalizing. Given rocephin and flagyl in the ED. Continue cefepime and flagyl. Continue IVF at 150 ml/hr. GI and surgical consult placed. 2. Choledocholithiasis. 8 mm stone in CBD, anticipate ERCP 3. Elevated AST/ALT. Likely secondary to sepsis. Hepatitis eval per GI 4. Elevated alk phos. Likely from vomiting 5. Obstructive jaundice 6. Replete electrolytes Time with Patient: Greater than 30
[2019-01-11] MEDS: POTASSIUM CHLORIDE 10 MEQ in WATER FOR INJECTION 1 100ML.BAG IVPB SCH ×6 (14:54→21:28)
--- NOTE | 2019-01-11 15:11 | P.CONS ---
History of Present Illness - Reason for Consult Consult date: 01/11/19 Obstructive jaundice Requesting physician: Femi Cleary - Chief Complaint Confusion weakness abdominal pain - History of Present Illness 68-year-old gentleman with a history of cholecystectomy presents with confusion fever upper abdominal pain dark colored urine. LFTs on admission were elevated total bilirubin 2.9. AST 351 ALT 170. BP 602. Lipase 32. Lactic acid 5.8 with hydration decreased to 2.3 presently increased to 3.2. BUN 10. Creatinine 0.8. T-max 102.9. Preliminary blood cultures gram-negative bacteria. History of known liver disorders. No history of alcohol abuse. No history of hepatitis. CT abdomen and pelvis reported choledocholithiasis 7.9 mm stone in the distal common duct with intrahepatic duct dilation. CBD measuring up to 13 mm. U nremarkable pancreas. Ultrasound dilated CBD 1.69 cm. No evidence of pancreatic mass. No focal liver defect. Review of Systems Constitutional: Reported fever, denies chills, sweats, weight gain, or loss. Confusion. Weakness. HEENT: Negative for migraines, blurred vision or loss, earaches, drainage, tinnitus, oral mucosal lesions, dysphagia, or odynophagia. Cardiac: Negative for chest pain, arrhythmias, or palpitation. Respiratory: Negative for shortness of breath, hemoptysis, cough, or sputum production. Gastrointestinal: See HPI for pertinent findings. Genitourinary: Negative for hematuria, urgency, frequency, polyuria, dysuria, or penile discharge. Musculoskeletal: Negative for muscle aches, swelling, arthritis, and arthralgias. Neurologic: Negative for stroke or TIA. Endocrine: Negative for thyroid problems. Skin: Negative for rash or itching. Psychiatric: Negative history for depression and anxiety Past Medical History Past Medical History: No Reported History History of Any Multi-Drug Resistant Organisms: None Reported Past Surgical History: No Surgical Hx Reported Past Anesthesia/Blood Transfusion Reactions: No Reported Reaction Past Psychological History: No Psychological Hx Reported Smoking Status: Current every day smoker Past Alcohol Use History: None Reported Past Drug Use History: Marijuana Medications and Allergies Home Medications Medication Instructions Recorded Confirmed Type Clopidogrel [Plavix] 75 mg PO DAILY 08/27/15 01/10/19 History Famotidine [Pepcid] 20 mg PO BID 08/27/15 01/10/19 History FLUoxetine HCL [PROzac] 20 mg PO DAILY 01/10/19 01/10/19 History Allergies Allergy/AdvReac Type Severity Reaction Status Date / Time Penicillins Allergy Rash/Hives Verified 01/10/19 19:02 Sulfa (Sulfonamide Allergy Unknown Verified 01/10/19 19:02 Antibiotics) Physical Exam Vitals: Vital Signs Temp Pulse Pulse Resp BP BP Pulse Ox 01/11/19 12:00 98.9 F 59 L 72 16 135/73 95 01/11/19 11:00 7 L 164/74 96 01/11/19 10:00 66 17 144/70 01/11/19 09:00 72 15 144/70 01/11/19 08:45 99.3 F 72 16 144/70 94 L 01/11/19 08:00 62 120/97 01/11/19 07:00 66 120/97 01/11/19 06:41 98.5 F 65 18 120/97 96 01/11/19 06:00 60 148/87 01/11/19 05:00 65 148/87 01/11/19 04:04 98.8 F 72 18 148/87 99 01/11/19 04:00 72 148/87 01/11/19 03:00 65 124/71 01/11/19 02:12 98.7 F 75 18 124/72 96 01/11/19 02:00 62 140/105 01/11/19 01:00 68 103/54 01/11/19 00:00 73 131/73 01/10/19 23:34 99.3 F 77 18 131/73 95 01/10/19 23:00 87 126/74 93 L 01/10/19 22:00 135/66 01/10/19 21:09 99.9 F H 83 18 144/65 96 01/10/19 21:00 135/65 01/10/19 20:00 139/56 01/10/19 19:41 85 18 139/56 96 01/10/19 19:00 156/88 94 L 01/10/19 18:38 102.9 F H 83 19 156/88 95 01/10/19 18:34 92 L Intake and Output 01/10/19 01/11/19 01/11/19 22:59 06:59 14:59 Other: Voiding Method Toilet Weight 66.678 kg NGeneral appearance: The patient is alert, oriented, in no acute distress. HET: Head is normocephalic and atraumatic. Pupils are equal and reactive. Very mild scleral icterus. Oropharynx is clear without lesions. Neck: Supple without lymphadenopathy. Trachea midline. Heart: S1 S2. Regular rate and rhythm. Lungs: No crackles or wheezes are heard. Abdomen: Soft, mild midepigastric tenderness., nondistended with bowel sounds. No peritoneal signs. No palpable organomegaly or masses. Extremities: Normal skin color and turgor. No cyanosis, rash, ulceration, clubbing, or edema. Radial and pedal pulses are 2/4 bilaterally. Neurological: No focal deficits. Strength and sensation are grossly intact. Results CBC & Chem 7: 01/11/19 03:15 01/11/19 03:15 Labs: Abnormal Lab Results - Last 24 Hours (Table) 01/10/19 01/10/19 01/10/19 Range/Units 19:23 19:23 19:23 RBC 4.09 L (4.30-5.90) m/uL Hgb 12.9 L (13.0-17.5) gm/dL Hct 38.1 L (39.0-53.0) % Neutrophils # (Manual) 9.20 H (1.3-7.7) k/uL Potassium 3.1 L (3.5-5.1) mmol/L Glucose 130 H (74-99) mg/dL POC Glucose (mg/dL) (75-99) mg/dL Plasma Lactic Acid Chet 5.8 H* (0.7-2.0) mmol/L Calcium 8.3 L (8.4-10.2) mg/dL Phosphorus 0.9 L* (2.5-4.5) mg/dL Magnesium 1.5 L (1.6-2.3) mg/dL Total Bilirubin 2.9 H (0.2-1.3) mg/dL AST 351 H (17-59) U/L ALT 170 H (21-72) U/L Alkaline Phosphatase 602 H (38-126) U/L Total Protein 5.6 L (6.3-8.2) g/dL Albumin 3.0 L (3.5-5.0) g/dL Urine Blood (Negative) Urine Bacteria (None) /hpf Urine Mucus (None) /hpf 01/10/19 01/10/19 01/11/19 Range/Units 22:20 23:02 03:15 RBC (4.30-5.90) m/uL Hgb (13.0-17.5) gm/dL Hct (39.0-53.0) % Neutrophils # (Manual) (1.3-7.7) k/uL Potassium (3.5-5.1) mmol/L Glucose (74-99) mg/dL POC Glucose (mg/dL) (75-99) mg/dL Plasma Lactic Acid Chet 3.0 H* 2.7 H* (0.7-2.0) mmol/L Calcium (8.4-10.2) mg/dL Phosphorus (2.5-4.5) mg/dL Magnesium (1.6-2.3) mg/dL Total Bilirubin (0.2-1.3) mg/dL AST (17-59) U/L ALT (21-72) U/L Alkaline Phosphatase (38-126) U/L Total Protein (6.3-8.2) g/dL Albumin (3.5-5.0) g/dL Urine Blood Small H (Negative) Urine Bacteria Rare H (None) /hpf Urine Mucus Rare H (None) /hpf 01/11/19 01/11/19 01/11/19 Range/Units 07:37 10:22 11:07 RBC (4.30-5.90) m/uL Hgb (13.0-17.5) gm/dL Hct (39.0-53.0) % Neutrophils # (Manual) (1.3-7.7) k/uL Potassium (3.5-5.1) mmol/L Glucose (74-99) mg/dL POC Glucose (mg/dL) 104 H (75-99) mg/dL Plasma Lactic Acid Chet 2.3 H* 3.2 H* (0.7-2.0) mmol/L Calcium (8.4-10.2) mg/dL Phosphorus (2.5-4.5) mg/dL Magnesium (1.6-2.3) mg/dL Total Bilirubin (0.2-1.3) mg/dL AST (17-59) U/L ALT (21-72) U/L Alkaline Phosphatase (38-126) U/L Total Protein (6.3-8.2) g/dL Albumin (3.5-5.0) g/dL Urine Blood (Negative) Urine Bacteria (None) /hpf Urine Mucus (None) /hpf Microbiology - Last 24 Hours (Table) 01/10/19 19:23 Blood Culture Gram Stain - Preliminary Blood 01/10/19 19:23 Blood Culture - Final Blood 01/10/19 22:20 Urine Culture - Preliminary Urine,Voided CT scan - abdomen: report reviewed (Dr. Lacy) US - abdomen: report reviewed (Dr. Lacy) Assessment and Plan (1) Obstructive jaundice Narrative/Plan: 68-year-old male admitted with acute abdominal pain confusion fever elevated liver enzymes consistent with sepsis possible ascending cholangitis with a history of remote cholecystectomy. Abdominal imaging reported dilated common bile duct with filling defect consistent with choledocholithiasis. Current Visit: Yes Status: Acute Code(s): K83.1 - OBSTRUCTION OF BILE DUCT SNOMED Code(s): 22506524 (2) Choledocholithiasis Current Visit: Yes Status: Acute Code(s): K80.50 - CALCULUS OF BILE DUCT W/O CHOLANGITIS OR CHOLECYST W/O OBST SNOMED Code(s): 432772410 (3) History of cholecystectomy Current Visit: Yes Status: Acute Code(s): Z90.49 - ACQUIRED ABSENCE OF OTHER SPECIFIED PARTS OF DIGESTIVE TRACT SNOMED Code(s): 682062147 (4) Gram-negative bacteremia Current Visit: Yes Status: Acute Code(s): R78.81 - BACTEREMIA SNOMED Code(s): 191464209235 (5) Fever Current Visit: Yes Status: Acute Code(s): R50.9 - FEVER, UNSPECIFIED SNOMED Code(s): 944226068 Plan: 1. IV antibiotics. DC Lovenox for ERCP tomorrow patient received dose today. 2. Nothing by mouth. 3. ERCP. 4. Daily CBC CMP. PT/INR now check hepatitis screen. The hassock maker has discussed the risks, benefits and alternative therapies for the above-mentioned procedure and for both sedation/analgesia as well as necessary blood product administration, if indicated, as they pertain to this patient. The patient has indicated understanding and acceptance of the risks and procedures discussed. Thank you for this kind referral and the opportunity to participate in the care of your patient. This consultation was discussed with Dr. Lacy. The impression and plan of care have been directed as dictated.
[2019-01-11 19:36] LABS: Hepatitis A Antibody IgM Non-Reactive (Non-Reactive); Hepatitis B Core IgM Non-Reactive (Non-Reactive)
[2019-01-11] MEDS: CEFEPIME 1 GM in SODIUM CHLORIDE 0.9% 50 ML IVPB SCH (20:07)
[2019-01-12 05:44] LABS: Basophils % (A) 0 %; Eosinophils # (A) 0.1 k/uL (0-0.7); Eosinophils % (A) 0 %; HCT 33.5 % (39.0-53.0); HGB 10.5 gm/dL (13.0-17.5); INR 1.3 (<1.2); Lymphocytes # (A) 0.6 k/uL (1.0-4.8); Lymphocytes % (A) 6 %; MCH 29.6 pg (25.0-35.0); MCHC 31.2 g/dL (31.0-37.0); MCV 94.7 fL (80.0-100.0); Mean Platelet Volume 9.4; Monocytes # (A) 0.2 k/uL (0-1.0); Monocytes % (A) 2 %; Neutrophils # (A) 10.3 k/uL (1.3-7.7); Neutrophils % (A) 92 %; Platelet Count 109 k/uL (150-450); Prothrombin Time 13.6 sec (9.0-12.0); RBC 3.54 m/uL (4.30-5.90); RDW 15.2 % (11.5-15.5); WBC 11.2 k/uL (3.8-10.6)
[2019-01-12] MEDS: metroNIDAZOLE-NS PMX 500 MG in SALINE 1 100ML.BAG IVPB SCH ×3 (06:06→20:00)
[2019-01-12] MEDS: SODIUM CHLORIDE 0.9% 1,000 ML IV SCH ×3 (06:07→20:01)
[2019-01-12 06:12] LABS: ALT 88 U/L (21-72); AST 82 U/L (17-59); African American GFR (CKD) >90 (>60 ml/min/1.73 sqM); Albumin 2.3 g/dL (3.5-5.0); Alkaline Phosphatase 348 U/L (38-126); Anion Gap 7 mmol/L; Blood Urea Nitrogen 15 mg/dL (9-20); Calcium 7.9 mg/dL (8.4-10.2); Carbon Dioxide 19 mmol/L (22-30); Chloride 112 mmol/L (98-107); Glucose 99 mg/dL (74-99); Sodium 138 mmol/L (137-145); Total Bilirubin 2.7 mg/dL (0.2-1.3); Total Protein 4.6 g/dL (6.3-8.2)
[2019-01-12] MEDS: CEFEPIME 1 GM in SODIUM CHLORIDE 0.9% 50 ML IVPB SCH ×2 (09:15→21:21)
[2019-01-12] MEDS: PANTOPRAZOLE 40 MG/10 ML VIAL IV SCH (09:21)
--- NOTE | 2019-01-12 10:24 | P.PN ---
Subjective Progress Note Date: 01/12/19 Russell Frazier is a 68 yo M with PMH significant for COPD, major depressive disorder, HLD who was brought into [facility] ED via EMS for nausea/vomiting and weakness. He has had RUQ pain and felt chilled for approx 2 days, then vomited multiple times throughout the day yesterday. His daughter called EMS as pt was too weak to get out of bed after vomiting. Pt states that his approx 1 month ago and since then he has stopped taking care of himself and has had nothing but [employer] biscuits and hamburgers to eat in the past few weeks. He denies alcohol use but smoking tobacco and MJ daily. In the ED he was febrile to 102, WBC 18, elevated alk phos, bilirubin and lactic. CT abd/pelvis revealed dilated CBD with 8 mm stone. 01/12. Pt evaluated in the ICU. He is upright in chair today and feels much better, no longer as weak and notes he passed a large pale stool last night. Still with RUQ pain. He is scheduled for ERCP today. No chest pain or dyspnea. Objective - Vital Signs Vital signs: Vital Signs Temp 98.3 F 01/12/19 08:00 Pulse 61 01/12/19 08:00 Resp 21 01/12/19 08:00 BP 129/90 01/12/19 08:00 Pulse Ox 94 L 01/12/19 08:00 Intake & Output 01/11/19 01/12/19 01/12/19 18:59 06:59 18:59 Intake Total 1999 250 2100 Output Total 400 Balance 1999 -150 2099 Weight 66.678 kg 70 kg Intake: IV 250 Cefepime 1 gm In Sodium 50 Chloride 0.9% 50 ml @ 100 mls/hr IVPB Q12HR [facility] Rx #:[id number] Potassium Chloride 10 meq 200 In Water For Injection 1 100ml.bag @ 100 mls/hr IVPB Q1HR [facility] Rx#: [id number] Intake, IV Titration 1999 2100 Amount Sodium Chloride 0.9% 1, 1000 2100 000 ml @ 150 mls/hr IV . Q6H40M [facility] Rx#:[id number] Sodium Chloride 0.9% 1, 1000 000 ml @ 999 mls/hr IV . Q1H1M ONE Rx#:[id number] Output: Urine 400 Other: Voiding Method Toilet Toilet # Voids 2 - Exam Constitutional: well developed, thin, NAD. Vitals reviewed HEENT: mucus membranes moist CV: RRR, no murmur Resp: clear tom Abd: RUQ tenderness - Labs CBC & Chem 7: 01/12/19 05:31 01/12/19 05:31 Labs: Abnormal Lab Results - Last 24 Hours (Table) 01/11/19 01/11/19 01/11/19 Range/Units 03:15 03:15 10:22 WBC 18.5 H (3.8-10.6) k/uL RBC 3.78 L (4.30-5.90) m/uL Hgb 11.6 L (13.0-17.5) gm/dL Hct 36.9 L (39.0-53.0) % Plt Count 129 L (150-450) k/uL Neutrophils # (1.3-7.7) k/uL Neutrophils # (Manual) 17.50 H (1.3-7.7) k/uL Lymphocytes # (1.0-4.8) k/uL Lymphocytes # (Manual) 0.19 L (1.0-4.8) k/uL PT (9.0-12.0) sec INR (<1.2) Potassium 2.9 L (3.5-5.1) mmol/L Chloride 112 H (98-107) mmol/L Carbon Dioxide 21 L (22-30) mmol/L POC Glucose (mg/dL) 104 H (75-99) mg/dL Plasma Lactic Acid Chet (0.7-2.0) mmol/L Calcium 7.9 L (8.4-10.2) mg/dL Total Bilirubin 3.3 H (0.2-1.3) mg/dL AST 204 H (17-59) U/L ALT 152 H (21-72) U/L Alkaline Phosphatase 458 H (38-126) U/L Total Protein 5.1 L (6.3-8.2) g/dL Albumin 2.5 L (3.5-5.0) g/dL 01/11/19 01/11/19 01/12/19 Range/Units 11:07 13:39 05:31 WBC 11.2 H (3.8-10.6) k/uL RBC 3.54 L (4.30-5.90) m/uL Hgb 10.5 L (13.0-17.5) gm/dL Hct 33.5 L (39.0-53.0) % Plt Count 109 L (150-450) k/uL Neutrophils # 10.3 H (1.3-7.7) k/uL Neutrophils # (Manual) (1.3-7.7) k/uL Lymphocytes # 0.6 L (1.0-4.8) k/uL Lymphocytes # (Manual) (1.0-4.8) k/uL PT 15.4 H (9.0-12.0) sec INR 1.5 H (<1.2) Potassium (3.5-5.1) mmol/L Chloride (98-107) mmol/L Carbon Dioxide (22-30) mmol/L POC Glucose (mg/dL) (75-99) mg/dL Plasma Lactic Acid Chet 3.2 H* (0.7-2.0) mmol/L Calcium (8.4-10.2) mg/dL Total Bilirubin (0.2-1.3) mg/dL AST (17-59) U/L ALT (21-72) U/L Alkaline Phosphatase (38-126) U/L Total Protein (6.3-8.2) g/dL Albumin (3.5-5.0) g/dL 01/12/19 01/12/19 Range/Units 05:31 05:31 WBC (3.8-10.6) k/uL RBC (4.30-5.90) m/uL Hgb (13.0-17.5) gm/dL Hct (39.0-53.0) % Plt Count (150-450) k/uL Neutrophils # (1.3-7.7) k/uL Neutrophils # (Manual) (1.3-7.7) k/uL Lymphocytes # (1.0-4.8) k/uL Lymphocytes # (Manual) (1.0-4.8) k/uL PT 13.6 H (9.0-12.0) sec INR 1.3 H (<1.2) Potassium (3.5-5.1) mmol/L Chloride 112 H (98-107) mmol/L Carbon Dioxide 19 L (22-30) mmol/L POC Glucose (mg/dL) (75-99) mg/dL Plasma Lactic Acid Chte (0.7-2.0) mmol/L Calcium 7.9 L (8.4-10.2) mg/dL Total Bilirubin 2.7 H (0.2-1.3) mg/dL AST 82 H (17-59) U/L ALT 88 H (21-72) U/L Alkaline Phosphatase 348 H (38-126) U/L Total Protein 4.6 L (6.3-8.2) g/dL Albumin 2.3 L (3.5-5.0) g/dL Microbiology - Last 24 Hours (Table) 01/10/19 19:23 Blood Culture Gram Stain - Preliminary Blood Blood Culture - Preliminary Gram Neg Bacilli 01/10/19 19:23 Blood Culture - Final Blood Assessment and Plan (1) Severe sepsis with acute organ dysfunction due to Gram negative bacteria Current Visit: Yes Status: Acute Code(s): A41.50 - GRAM-NEGATIVE SEPSIS, UNSPECIFIED; R65.20 - SEVERE SEPSIS WITHOUT SEPTIC SHOCK SNOMED Code(s): 145531401445613 (2) Choledocholithiasis Current Visit: Yes Status: Acute Code(s): K80.50 - CALCULUS OF BILE DUCT W/O CHOLANGITIS OR CHOLECYST W/O OBST SNOMED Code(s): 724083810 (3) Obstructive jaundice Current Visit: Yes Status: Acute Code(s): K83.1 - OBSTRUCTION OF BILE DUCT SNOMED Code(s): 59775609 (4) Malnutrition Current Visit: Yes Status: Acute Code(s): E46 - UNSPECIFIED PROTEIN-CALORIE MALNUTRITION SNOMED Code(s): 55175850 (5) Hypocalcemia Current Visit: Yes Status: Acute Code(s): E83.51 - HYPOCALCEMIA SNOMED Code(s): 3246195 (6) Hypokalemia Current Visit: Yes Status: Acute Code(s): E87.6 - HYPOKALEMIA SNOMED Code(s): 80424207 Plan: 1. Severe sepsis with end organ dysfunction. Secondary to ascending cholangitis. Blood culture gram negative rods. Lactic normalized with fluid resuscitation. Given rocephin and flagyl in the ED. Continue cefepime and flagyl. Continue IVF at 150 ml/hr 2. Choledocholithiasis with obstructive jaundice. 8 mm stone in CBD, pt for ERCP today 3. Elevated AST/ALT. Hepatitis eval per GI
--- NOTE | 2019-01-12 10:27 | P.PN ---
Progress Note - Text Progress Note Date: 01/12/19 The patient feels better. His liver function tests have improved slightly. Apparently his scheduled for ERCP today. On exam his vital signs are stable. His abdomen is soft. Status post laparoscopic ostectomy in the past. Patient has a common bile duct stone. We'll wait GI intervention for ERCP.
[2019-01-12] MEDS ORDERED: FUROSEMIDE 10 MG/ML 2 ML VIAL IV ONE (10:46)
[2019-01-12] MEDS: FLUoxetine HCL 20 MG CAP PO SCH (11:26)
--- NOTE | 2019-01-12 11:56 | XR ---
EXAMINATION TYPE: XR chest 1V DATE OF EXAM: 01/12/2019 HISTORY: short of breath. REFERENCE: Previous study dated 01/10/2019. FINDINGS: The lungs remain clear. Pleural spaces are clear. The heart is not enlarged. IMPRESSION: NO ACTIVE INTRATHORACIC DISEASE.
[2019-01-12] MEDS ORDERED: INDOMETHACIN 50MG SUPPOSITORY RECTAL ONE (12:30)
[2019-01-12] MEDS ORDERED: KETAMINE 10 MG/ML 20 ML VIAL ONE (14:14)
[2019-01-12] MEDS ORDERED: GLUCAGON 1 MG/ML VIAL ONE (14:14)
[2019-01-12] MEDS ORDERED: PROPOFOL 10 MG/ML 20 ML VIAL IV ONE (14:14)
[2019-01-12] MEDS ORDERED: SUCCINYLCHOLINE CHLORIDE 100 MG/5 ML SYR IV ONE (14:14)
[2019-01-12] MEDS ORDERED: LIDOCAINE 1% INJ 10MG/ML (20 ML MDV) ONE (14:14)
[2019-01-12] MEDS ORDERED: IV FLUID CONTINUATION 900 ML IV ONE (14:27)
[2019-01-12] MEDS ORDERED: IOHEXOL 300 MG/ML 50 ML BOTTLE MISCELLANE ONE (15:17)
--- NOTE | 2019-01-12 15:38 | P.PCN ---
Date of Procedure: 01/12/19 Description of Procedure: Brief history: 68-year-old gentleman with a history of cholecystectomy presents with confusion fever upper abdominal pain dark colored urine. LFTs on admission were elevated total bilirubin 2.9. AST 351 ALT 170. BP 602. Lipase 32. Lactic acid 5.8 with hydration decreased to 2.3 presently increased to 3.2. BUN 10. Creatinine 0.8. T-max 102.9. Preliminary blood cultures gram-negative bacteria. History of known liver disorders. No history of alcohol abuse. No history of hepatitis. CT abdomen and pelvis reported choledocholithiasis 7.9 mm stone in the distal common duct with intrahepatic duct dilation. CBD measuring up to 13 mm. Unremarkable pancreas. Ultrasound dilated CBD 1.69 cm. No evidence of pancreatic mass. No focal liver defect. Procedure performed: ERCP with cholangiogram, sphincterotomy and balloon sweep with stone extraction Preoperative diagnoses: choledocholithiasis IV sedation per anesthesia Estimated blood loss: Minimal. Procedure: After informed consent was obtained from the patient and after the risks benefits and complications including bleeding perforation and pancreatitis explained in detail the patient was brought into the endoscopy unit. The patient was placed in prone position and IV conscious sedation was administered by anesthesia under continuous monitoring. The Olympus side-viewing duodenoscope was then inserted into the mouth and esophagus intubated without any difficulty. The scope was gradually advanced into the stomach and duodenum. The major papilla was identified without any difficulty And cannulated with a sphincterotome. A wire was then passed through the common bile duct into the bifurcation of the common hepatic duct. Cholangiogram was then performed with injection of dye which showed a diffusely dilated common bile duct. a 1.2 cm sphincterotomy was then performed. The sphincterotome was then exchanged over the wire for a balloon. Multiple passes with the balloon advanced to the bifurcation and inflated to 1.1 cm with the duct swept and productive of bile, debris and a large dark stone measuring approximately 1.1 cm in size. The pancreatic duct was not cannulated or injected. The patient tolerated the procedure well. Impression: 1. ERCP with cholangiogram, sphincterotomy and balloon sweep with extraction of a 1.1 cm stone, debris and bile. Recommendations: The findings of this examination were discussed with the patient as well as His daughter. Okay to resume full liquid diet, advance as tolerated. Continue to monitor labs and clinically. Continue to monitor for signs or symptoms of pancreatitis. Continue antibiotic therapy. No further intervention planned from gastroenterology at this time, we will standby, please call us back with any questions or concerns.
[2019-01-13] MEDS: SODIUM CHLORIDE 0.9% 1,000 ML IV SCH ×2 (03:49→20:57)
[2019-01-13 05:14] LABS: Anisocytosis Slight; Basophils % (A) 0 %; Eosinophils # (A) 0.1 k/uL (0-0.7); Eosinophils % (A) 1 %; HCT 33.6 % (39.0-53.0); HGB 10.8 gm/dL (13.0-17.5); Lymphocytes % (A) 8 %; MCH 30.4 pg (25.0-35.0); MCHC 32.1 g/dL (31.0-37.0); MCV 94.6 fL (80.0-100.0); Mean Platelet Volume 9.3; Monocytes # (A) 0.2 k/uL (0-1.0); Monocytes % (A) 2 %; Neutrophils # (A) 10.2 k/uL (1.3-7.7); Neutrophils % (A) 88 %; Platelet Count 121 k/uL (150-450); RBC 3.55 m/uL (4.30-5.90); RDW 16.3 % (11.5-15.5); WBC 11.6 k/uL (3.8-10.6)
[2019-01-13 05:25] LABS: ALT 72 U/L (21-72); AST 64 U/L (17-59); African American GFR (CKD) >90 (>60 ml/min/1.73 sqM); Albumin 2.4 g/dL (3.5-5.0); Alkaline Phosphatase 429 U/L (38-126); Anion Gap 7 mmol/L; Blood Urea Nitrogen 18 mg/dL (9-20); Calcium 7.9 mg/dL (8.4-10.2); Carbon Dioxide 21 mmol/L (22-30); Chloride 112 mmol/L (98-107); Glucose 107 mg/dL (74-99); Potassium 3.6 mmol/L (3.5-5.1); Sodium 140 mmol/L (137-145); Total Bilirubin 2.7 mg/dL (0.2-1.3); Total Protein 4.8 g/dL (6.3-8.2)
[2019-01-13] MEDS: metroNIDAZOLE-NS PMX 500 MG in SALINE 1 100ML.BAG IVPB SCH (06:28)
[2019-01-13] MEDS: PANTOPRAZOLE 40 MG/10 ML VIAL IV SCH (08:36)
[2019-01-13] MEDS: FLUoxetine HCL 20 MG CAP PO SCH (08:37)
[2019-01-13] MEDS: CEFEPIME 1 GM in SODIUM CHLORIDE 0.9% 50 ML IVPB SCH (09:46)
[2019-01-13] MEDS ORDERED: POTASSIUM CHLORIDE ER 20 MEQ TAB.ER PO SCH (12:00)
--- NOTE | 2019-01-13 12:34 | P.PN ---
Progress Note - Text Progress Note Date: 01/13/19 The patient is a resting in the ICU comfortably. He denies any significant abdominal pain. He is tolerating his diet. His liver function tests improved. On exam his vital signs are stable. His abdomen soft. Status post ERCP with removal of common bile duct stone. Patient will most likely be transferred to floor today.
[2019-01-13] MEDS: LISINOPRIL 10 MG TAB PO SCH (13:39)
[2019-01-13] MEDS: metroNIDAZOLE 500 MG TAB PO SCH ×2 (15:27→20:59)
--- NOTE | 2019-01-13 16:45 | P.PN ---
Subjective Progress Note Date: 01/13/19 Russell Frazier is a 68 yo M with PMH significant for COPD, major depressive disorder, HLD who was brought into [facility] ED via EMS for nausea/vomiting and weakness. He has had RUQ pain and felt chilled for approx 2 days, then vomited multiple times throughout the day yesterday. His daughter called EMS as pt was too weak to get out of bed after vomiting. Pt states that his approx 1 month ago and since then he has stopped taking care of himself and has had nothing but [employer] biscuits and hamburgers to eat in the past few weeks. He denies alcohol use but smoking tobacco and MJ daily. In the ED he was febrile to 102, WBC 18, elevated alk phos, bilirubin and lactic. CT abd/pelvis revealed dilated CBD with 8 mm stone. 01/12. Pt evaluated in the ICU. He is upright in chair today and feels much better, no longer as weak and notes he passed a large pale stool last night. Still with RUQ pain. He is scheduled for ERCP today. No chest pain or dyspnea. 01/13. Pt s/p ERCP, he is feeling much better today, tolerating diet without abdominal pain. His liver enzymes are decreased with stable bilirubin and ALP. Objective - Vital Signs Vital signs: Vital Signs Temp 98 F 01/13/19 12:00 Pulse 71 01/13/19 12:00 Resp 23 01/13/19 12:00 BP 158/78 01/13/19 12:00 Pulse Ox 93 L 01/13/19 12:00 Intake & Output 01/12/19 01/13/19 01/13/19 18:59 06:59 18:59 Intake Total 2850 120 Output Total 1075 1000 100 Balance 1775 -1000 20 Weight 68 kg Intake: IV 750 Intake, IV Titration 2100 Amount Sodium Chloride 0.9% 1, 2100 000 ml @ 150 mls/hr IV . Q6H40M [facility] Rx#:[id number] Oral 120 Output: Urine 1075 1000 100 Other: Voiding Method Toilet Toilet - Exam Constitutional: well developed, thin, NAD. Vitals reviewed HEENT: mucus membranes moist CV: RRR, no murmur Resp: clear tom Abd: nontender, soft - Labs CBC & Chem 7: 01/13/19 04:53 01/13/19 04:53 Labs: Abnormal Lab Results - Last 24 Hours (Table) 01/13/19 01/13/19 Range/Units 04:53 04:53 WBC 11.6 H (3.8-10.6) k/uL RBC 3.55 L (4.30-5.90) m/uL Hgb 10.8 L (13.0-17.5) gm/dL Hct 33.6 L (39.0-53.0) % RDW 16.3 H (11.5-15.5) % Plt Count 121 L (150-450) k/uL Neutrophils # 10.2 H (1.3-7.7) k/uL Chloride 112 H (98-107) mmol/L Carbon Dioxide 21 L (22-30) mmol/L Glucose 107 H (74-99) mg/dL Calcium 7.9 L (8.4-10.2) mg/dL Total Bilirubin 2.7 H (0.2-1.3) mg/dL AST 64 H (17-59) U/L Alkaline Phosphatase 429 H (38-126) U/L Total Protein 4.8 L (6.3-8.2) g/dL Albumin 2.4 L (3.5-5.0) g/dL Microbiology - Last 24 Hours (Table) 01/10/19 19:23 Blood Culture Gram Stain - Final Blood Blood Culture - Final Klebsiella pneumoniae Assessment and Plan (1) Severe sepsis with acute organ dysfunction due to Gram negative bacteria Current Visit: Yes Status: Acute Code(s): A41.50 - GRAM-NEGATIVE SEPSIS, UNSPECIFIED; R65.20 - SEVERE SEPSIS WITHOUT SEPTIC SHOCK SNOMED Code(s): 995011257350020 (2) Choledocholithiasis Current Visit: Yes Status: Acute Code(s): K80.50 - CALCULUS OF BILE DUCT W/O CHOLANGITIS OR CHOLECYST W/O OBST SNOMED Code(s): 646466981 (3) Obstructive jaundice Current Visit: Yes Status: Acute Code(s): K83.1 - OBSTRUCTION OF BILE DUCT SNOMED Code(s): 00798016 (4) Malnutrition Current Visit: Yes Status: Acute Code(s): E46 - UNSPECIFIED PROTEIN-CALORIE MALNUTRITION SNOMED Code(s): 51332278 (5) Hypocalcemia Current Visit: Yes Status: Acute Code(s): E83.51 - HYPOCALCEMIA SNOMED Code(s): 8123266 (6) Hypokalemia Current Visit: Yes Status: Acute Code(s): E87.6 - HYPOKALEMIA SNOMED Cod e(s): 60624470 Plan: 1. Severe sepsis. Secondary to ascending cholangitis. Blood culture klebsiella. Given rocephin and flagyl in the ED. Decrease IV fluids. Continue cefepime and flagyl, switch to PO tonight 2. Choledocholithiasis with obstructive jaundice. Resolved with ERCP 3. Elevated AST/ALT. Hepatitis eval neg. Secondary to stone
[2019-01-13] MEDS: ACETAMINOPHEN TAB 325 MG TAB PO PRN (17:37)
[2019-01-13] MEDS: CEFDINIR 300 MG CAP PO SCH (20:59)
[2019-01-14 06:04] LABS: Basophils % (A) 0 %; Eosinophils % (A) 1 %; HCT 34.9 % (39.0-53.0); HGB 11.7 gm/dL (13.0-17.5); Lymphocytes % (A) 11 %; MCH 31.6 pg (25.0-35.0); MCHC 33.4 g/dL (31.0-37.0); MCV 94.7 fL (80.0-100.0); Mean Platelet Volume 8.7; Monocytes # (A) 0.3 k/uL (0-1.0); Monocytes % (A) 3 %; Neutrophils % (A) 83 %; Platelet Count 131 k/uL (150-450); RBC 3.69 m/uL (4.30-5.90); RDW 15.6 % (11.5-15.5); WBC 9.7 k/uL (3.8-10.6)
[2019-01-14 06:05] LABS: Eosinophils # (A) 0.1 k/uL (0-0.7)
[2019-01-14 06:15] LABS: ALT 57 U/L (21-72); AST 46 U/L (17-59); African American GFR (CKD) >90 (>60 ml/min/1.73 sqM); Albumin 2.3 g/dL (3.5-5.0); Alkaline Phosphatase 431 U/L (38-126); Anion Gap 6 mmol/L; Blood Urea Nitrogen 13 mg/dL (9-20); Calcium 7.8 mg/dL (8.4-10.2); Carbon Dioxide 23 mmol/L (22-30); Chloride 109 mmol/L (98-107); Glucose 99 mg/dL (74-99); Potassium 3.7 mmol/L (3.5-5.1); Sodium 138 mmol/L (137-145); Total Bilirubin 2.7 mg/dL (0.2-1.3); Total Protein 4.8 g/dL (6.3-8.2)
[2019-01-14] MEDS ORDERED: ONDANSETRON 4 MG/2 ML VIAL IVP PRN (06:39)
[2019-01-14] MEDS: PANTOPRAZOLE 40 MG TABLET PO SCH (07:10)
[2019-01-14 10:18] VITALS: BMI 24.3
[2019-01-14] MEDS: metroNIDAZOLE 500 MG TAB PO SCH ×3 (10:50→21:10)
[2019-01-14] MEDS: FLUoxetine HCL 20 MG CAP PO SCH (10:50)
[2019-01-14] MEDS: LISINOPRIL 10 MG TAB PO SCH (10:50)
[2019-01-14] MEDS: guaiFENesin 600 MG TABLET.ER PO SCH ×2 (10:50→21:10)
[2019-01-14] MEDS: FLUTICASONE 50MCG/SPRAY NASAL 16GM EA NOSTRIL SCH (10:51)
[2019-01-14] MEDS: CEFDINIR 300 MG CAP PO SCH ×2 (10:51→21:10)
--- NOTE | 2019-01-14 12:44 | FL ---
Fluoroscopy HISTORY: Cholelithiasis 40 seconds fluoroscopy time supplied to the referring clinician. 4 intraoperative C-arm images docum ent the procedure. See dictated report from gastroenterology.
--- NOTE | 2019-01-14 12:50 | P.PN ---
Subjective Progress Note Date: 01/14/19 CHIEF COMPLAINT: nausea, vomiting, abdominal pain HISTORY OF PRESENT ILLNESS: Patient is s/p ERCP with cholangiogram, sphincterotomy and balloon sweep with stone extraction. Patient denies abdominal pain. Tolerating diet. Denies nausea or vomiting. Reports frequent coughing. WBC 9.7. Hemoglobin 11.7. Bilirubin 2.7. AST 46. ALT 57. PHYSICAL EXAM: VITAL SIGNS: Reviewed. GENERAL: Well-developed in no acute distress. HEENT: No sclera icterus. Extraocular movements grossly intact. Moist buccal mucosa. Head is atraumatic, normocephalic. ABDOMEN: Soft. Nondistended. Nondistended. Positive bowel sounds. NEUROLOGIC: Alert and oriented. Cranial nerves II through XII grossly intact. ASSESSMENT: 1. Abdominal pain, nausea, vomiting x 1 day 2. Choledocholithiasis 3. Elevated LFTs 4. History of cholecystectomy PLAN: Diet as tolerated No surgical intervention recommended at this time. Will continue to monitor. Further recommendations pending patient course. Nurse practitioner note has been reviewed by physician. Signing provider agrees with the documented findings, assessment, and plan of care. Objective - Vital Signs Vital signs: Vital Signs Temp 98.2 F 01/14/19 12:00 Pulse 66 01/14/19 12:00 Resp 16 01/14/19 12:00 BP 158/82 01/14/19 12:00 Pulse Ox 93 L 01/14/19 12:00 Intake & Output 01/13/19 01/14/19 01/14/19 18:59 06:59 18:59 Intake Total 240 500 Output Total 400 Balance -160 500 Weight 72.6 kg 72.6 kg Intake: IV 100 Cefepime 1 gm In Sodium 100 Chloride 0.9% 50 ml @ 100 mls/hr IVPB Q12HR [facility] Rx #:[id number] Oral 240 400 Output: Urine 400 Other: Voiding Method Toilet # Voids 1 2 # Bowel Movements 1 - Labs CBC & Chem 7: 01/14/19 05:41 01/14/19 05:41 Labs: Abnormal Lab Results - Last 24 Hours (Table) 01/14/19 01/14/19 Range/Units 05:41 05:41 RBC 3.69 L (4.30-5.90) m/uL Hgb 11.7 L (13.0-17.5) gm/dL Hct 34.9 L (39.0-53.0) % RDW 15.6 H (11.5-15.5) % Plt Count 131 L (150-450) k/uL Neutrophils # 8.0 H (1.3-7.7) k/uL Chloride 109 H (98-107) mmol/L Calcium 7.8 L (8.4-10.2) mg/dL Total Bilirubin 2.7 H (0.2-1.3) mg/dL Alkaline Phosphatase 431 H (38-126) U/L Total Protein 4.8 L (6.3-8.2) g/dL Albumin 2.3 L (3.5-5.0) g/dL
--- NOTE | 2019-01-14 17:24 | XR ---
EXAMINATION TYPE: XR chest 2V DATE OF EXAM: 01/14/2019 COMPARISON: Prior chest x-ray 01/12/2019 HISTORY: Cough TECHNIQUE: Frontal and lateral views of the chest are obtained. FINDINGS: Perihilar airspace disease is present. There is blunting the costophrenic angles. Heart si ze is enlarged. No pneumothorax. Interstitium is increased. IMPRESSION: Correlate for congestive heart failure which has developed in the interval, pneumonia no t excluded. There are likely small basilar effusions.
--- NOTE | 2019-01-14 17:25 | P.PN ---
Subjective Progress Note Date: 01/14/19 Russell Frazier is a 68 yo M with PMH significant for COPD, major depressive disorder, HLD who was brought into [facility] ED via EMS for nausea/vomiting and weakness. He has had RUQ pain and felt chilled for approx 2 days, then vomited multiple times throughout the day yesterday. His daughter called EMS as pt was too weak to get out of bed after vomiting. Pt states that his approx 1 month ago and since then he has stopped taking care of himself and has had nothing but [employer] biscuits and hamburgers to eat in the past few weeks. He denies alcohol use but smoking tobacco and MJ daily. In the ED he was febrile to 102, WBC 18, elevated alk phos, bilirubin and lactic. CT abd/pelvis revealed d ilated CBD with 8 mm stone. 01/12. Pt evaluated in the ICU. He is upright in chair today and feels much better, no longer as weak and notes he passed a large pale stool last night. Still with RUQ pain. He is scheduled for ERCP today. No chest pain or dyspnea. 01/13. Pt s/p ERCP, he is feeling much better today, tolerating diet without abdominal pain. His liver enzymes are decreased with stable bilirubin and ALP. 01/14/2019 . Overflow in the ICU;tolerating diet, no nausea or vomiting. Complains of frequent coughing during the night progress note has subsided, upper respiratory congestion , cough, clear sputum. T bili stable at 2.7, alk phos 431, AST ALT normalized.. Denies abdominal pain. Afebrile, and normal WBCs. Objective - Vital Signs Vital signs: Vital Signs Temp 99.2 F 01/14/19 04:00 Pulse 67 01/14/19 07:22 Resp 23 01/14/19 07:22 BP 158/64 01/14/19 04:00 Pulse Ox 92 L 01/14/19 04:00 Intake & Output 01/13/19 01/14/19 01/14/19 18:59 06:59 18:59 Intake Total 240 Output Total 400 Balance -160 Weight 72.6 kg Intake: Oral 240 Output: Urine 400 Other: Voiding Method Toilet # Voids 1 # Bowel Movements 1 - Exam PHYSICAL EXAM: VITAL SIGNS: As above GENERAL: Sitting up in bed, no acute distress HEENT: Conjunctivae normal. eyes normal. NECK: No JVD. No thyroid enlargement. No LNs CARDIOVASCULAR: S1, S2 regular.No murmur RESPIRATION: Breath sounds essentially clear, diminished in the bases. No rhonchi or crackles. No bronchial breathing. ABDOMEN: Soft, nontender . No guarding. no masses palpable. Bowel sounds heard. LEGS: No edema. no swelling PSYCHIATRY: Alert and oriented X3, mood and affect normal. NERVOUS SYSTEM: Cranial N 2-12 grossly normal. Moves all 4 limbs. Diffuse weakness No focal deficits. Strength and sensation grossly intact.. Skin: no lesions, no rash - Labs CBC & Chem 7: 01/14/19 05:41 01/14/19 05:41 Labs: Abnormal Lab Results - Last 24 Hours (Table) 01/14/19 01/14/19 Range/Units 05:41 05:41 RBC 3.69 L (4.30-5.90) m/uL Hgb 11.7 L (13.0-17.5) gm/dL Hct 34.9 L (39.0-53.0) % RDW 15.6 H (11.5-15.5) % Plt Count 131 L (150-450) k/uL Neutrophils # 8.0 H (1.3-7.7) k/uL Chloride 109 H (98-107) mmol/L Calcium 7.8 L (8.4-10.2) mg/dL Total Bilirubin 2.7 H (0.2-1.3) mg/dL Alkaline Phosphatase 431 H (38-126) U/L Total Protein 4.8 L (6.3-8.2) g/dL Albumin 2.3 L (3.5-5.0) g/dL Assessment and Plan Assessment: (1) Severe sepsis with acute organ dysfunction due to secondary to ascending cholangitis, blood culture Klebsiella. Current Visit: Yes Status: Acute Code(s): A41.50 - GRAM-NEGATIVE SEPSIS, UNSPECIFIED; R65.20 - SEVERE SEPSIS WITHOUT SEPTIC SHOCK SNOMED Code(s): 984424986411266 (2) Choledocholithiasis Current Visit: Yes Status: Acute Code(s): K80.50 - CALCULUS OF BILE DUCT W/O CHOLANGITIS OR CHOLECYST W/O OBST SNOMED Code(s): 812924411 (3) Obstructive jaundice, resolved with ERCP Current Visit: Yes Status: Acute Code(s): K83.1 - OBSTRUCTION OF BILE DUCT SNOMED Code(s): 27119268 (4) Malnutrition Current Visit: Yes Status: Acute Code(s): E46 - UNSPECIFIED PROTEIN-CALORIE MALNUTRITION SNOMED Code(s): 66890973 (5) Hypocalcemia Current Visit: Yes Status: Acute Code(s): E83.51 - HYPOCALCEMIA SNOMED Code(s): 6439235 (6) Hypokalemia Current Visit: Yes Status: Acute Code(s): E87.6 - HYPOKALEMIA SNOMED Code(s): 93855578 (7) elevated LFTs, hepatitis eval negative, secondary to stone. Plan: Continue on current medication regime ,monitoring and symptomatic treatment. Flonase added to the med regime. Increase activity as tolerated. Diet advancement as per surgery. No surgical intervention recommended at this time. The impression and plan of care has been dictated as directed. : I performed a history and examination of this patient, discussed the same with the dictator. I agree with the dictator's note ,documented as a scribe. Any additional findings or plans will be noted.
[2019-01-14] MEDS: ACETAMINOPHEN TAB 325 MG TAB PO PRN (23:51)
[2019-01-15 05:03] VITALS: RESP 18
[2019-01-15 05:36] LABS: HCT 33.5 % (39.0-53.0); MCH 31.5 pg (25.0-35.0); MCHC 32.9 g/dL (31.0-37.0); Mean Platelet Volume 9.4; Platelet Count 129 k/uL (150-450); RBC 3.49 m/uL (4.30-5.90); RDW 15.6 % (11.5-15.5); WBC 10.9 k/uL (3.8-10.6)
[2019-01-15 05:44] LABS: African American GFR (CKD) >90 (>60 ml/min/1.73 sqM); Blood Urea Nitrogen 12 mg/dL (9-20); Calcium 7.9 mg/dL (8.4-10.2); Carbon Dioxide 24 mmol/L (22-30); Glucose 100 mg/dL (74-99)
[2019-01-15 05:49] LABS: Anion Gap 6 mmol/L; Chloride 107 mmol/L (98-107); Potassium 3.4 mmol/L (3.5-5.1); Sodium 137 mmol/L (137-145)
[2019-01-15] MEDS: POTASSIUM CHLORIDE ER 20 MEQ TAB.ER PO SCH ×3 (06:24→23:34)
[2019-01-15] MEDS: PANTOPRAZOLE 40 MG TABLET PO SCH (06:24)
[2019-01-15] MEDS: FLUoxetine HCL 20 MG CAP PO SCH (08:08)
[2019-01-15] MEDS: guaiFENesin 600 MG TABLET.ER PO SCH ×2 (08:08→22:04)
[2019-01-15] MEDS: LISINOPRIL 10 MG TAB PO SCH (08:08)
[2019-01-15] MEDS: FLUTICASONE 50MCG/SPRAY NASAL 16GM EA NOSTRIL SCH (08:11)
[2019-01-15] MEDS: metroNIDAZOLE 500 MG TAB PO SCH ×3 (08:12→22:04)
[2019-01-15] MEDS: CEFDINIR 300 MG CAP PO SCH ×2 (08:12→22:04)
[2019-01-15] MEDS ORDERED: Potassium Replacement Protocol 1 EACH MISC MISCELLANE PRN (09:35)
[2019-01-15] MEDS ORDERED: FUROSEMIDE 10 MG/ML 4 ML VIAL IV STA (09:56)
[2019-01-15 11:27] LABS: ALT 49 U/L (21-72); AST 33 U/L (17-59); Albumin 2.2 g/dL (3.5-5.0); Alkaline Phosphatase 377 U/L (38-126); Total Bilirubin 2.5 mg/dL (0.2-1.3); Total Protein 4.7 g/dL (6.3-8.2)
--- NOTE | 2019-01-15 12:59 | P.PN ---
Subjective Progress Note Date: 01/15/19 Russell Frazier is a 68 yo M with PMH significant for COPD, major depressive disorder, HLD who was brought into [facility] ED via EMS for nausea/vomiting and weakness. He has had RUQ pain and felt chilled for approx 2 days, then vomited multiple times throughout the day yesterday. His daughter called EMS as pt was too weak to get out of bed after vomiting. Pt states that his approx 1 month ago and since then he has stopped taking care of himself and has had nothing but [employer] biscuits and hamburgers to eat in the past few weeks. He denies alcohol use but smoking tobacco and MJ daily. In the ED he was febrile to 102, WBC 18, elevated alk phos, bilirubin and lactic. CT abd/pelvis revealed dilated CBD with 8 mm stone. 01/12. Pt evaluated in the ICU. He is upright in chair today and feels much better, no longer as weak and notes he passed a large pale stool last night. Still with RUQ pain. He is scheduled for ERCP today. No chest pain or dyspnea. 01/13. Pt s/p ERCP, he is feeling much better today, tolerating diet without abdominal pain. His liver enzymes are decreased with stable bilirubin and ALP. 01/14. Overflow in the ICU; tolerating full liquid diet, no nausea or vomiting. Complains of frequent coughing during the night progress note has subsided, upper respiratory congestion, cough, clear sputum. T bili stable at 2.7, alk phos 431, AST ALT normalized.. Denies abdominal pain. Afebrile, and normal WBCs. 01/15. feeling much better today and liver enzymes and bili decreasing. Tmax 100 last night and WBC up slightly to 10 today. His CXR yesterday suggested fluid overload but no evidence of pneumonia. Pt given one time IV lasix and incentive spirometer ordered. Objective - Vital Signs Vital signs: Vital Signs Temp 98.3 F 01/15/19 08:00 Pulse 70 01/15/19 08:00 Resp 18 01/15/19 08:00 BP 147/63 01/15/19 08:00 Pulse Ox 91 L 01/15/19 08:00 Intake & Output 01/14/19 01/15/19 01/15/19 18:59 06:59 18:59 Intake Total 500 Output Total 400 Balance 500 -400 Weight 72.6 kg 73.3 kg Intake: IV 100 Cefepime 1 gm In Sodium 100 Chloride 0.9% 50 ml @ 100 mls/hr IVPB Q12HR [facility] Rx #:[id number] Oral 400 Output: Urine 400 Other: Voiding Method Toilet Toilet # Voids 2 3 - Exam Constitutional: well developed, thin, NAD. Vitals reviewed HEENT: mucus membranes moist CV: RRR, no murmur Resp: clear tom Abd: nontender, soft - Labs CBC & Chem 7: 01/15/19 05:16 01/15/19 05:16 Labs: Abnormal Lab Results - Last 24 Hours (Table) 01/15/19 01/15/19 Range/Units 05:16 05:16 WBC 10.9 H (3.8-10.6) k/uL RBC 3.49 L (4.30-5.90) m/uL Hgb 11.0 L (13.0-17.5) gm/dL Hct 33.5 L (39.0-53.0) % RDW 15.6 H (11.5-15.5) % Plt Count 129 L (150-450) k/uL Potassium 3.4 L (3.5-5.1) mmol/L Glucose 100 H (74-99) mg/dL Calcium 7.9 L (8.4-10.2) mg/dL Total Bilirubin 2.5 H (0.2-1.3) mg/dL Alkaline Phosphatase 377 H (38-126) U/L Total Protein 4.7 L (6.3-8.2) g/dL Albumin 2.2 L (3.5-5.0) g/dL Assessment and Plan (1) Severe sepsis with acute organ dysfunction due to Gram negative bacteria Current Visit: Yes Status: Acute Code(s): A41.50 - GRAM-NEGATIVE SEPSIS, UNSPECIFIED; R65.20 - SEVERE SEPSIS WITHOUT SEPTIC SHOCK SNOMED Code(s): 035816827482850 (2) Choledocholithiasis Current Visit: Yes Status: Acute Code(s): K80.50 - CALCULUS OF BILE DUCT W/O CHOLANGITIS OR CHOLECYST W/O OBST SNOMED Code(s): 580142485 (3) Obstructive jaundice Current Visit: Yes Status: Acute Code(s): K83.1 - OBSTRUCTION OF BILE DUCT SNOMED Code(s): 38252321 (4) Malnutrition Current Visit: Yes Status: Acute Code(s): E46 - UNSPECIFIED PROTEIN-CALORIE MALNUTRITION SNOMED Code(s): 98796211 (5) Hypocalcemia Current Visit: Yes Status: Acute Code(s): E83.51 - HYPOCALCEMIA SNOMED Code(s): 1109768 (6) Hypokalemia Current Visit: Yes Status: Acute Code(s): E87.6 - HYPOKALEMIA SNOMED Code(s): 10611408 Plan: 1. Severe sepsis. Resolved. Secondary to ascending cholangitis. Blood culture klebsiella. IVF stopped. Continue omnicef and flagyl PO 2. Choledocholithiasis with obstructive jaundice. Resolved with ERCP. Bili decreasing 3. Elevated AST/ALT. Hepatitis eval neg. Secondary to stone 4. Leukocytosis. Cough. Suspect secondary to atelectasis. No evidence of pneumon ia. Pt given IS and will continue to monitor today Anticipate dc tomorrow
--- NOTE | 2019-01-15 13:41 | P.PN ---
Subjective Progress Note Date: 01/15/19 CHIEF COMPLAINT: nausea, vomiting, abdominal pain HISTORY OF PRESENT ILLNESS: Patient is s/p ERCP with cholangiogram, sphincterotomy and balloon sweep with stone extraction. Patient denies abdominal pain. Tolerating diet. Denies nausea or vomiting. LFTs continue to trend downward. PHYSICAL EXAM: VITAL SIGNS: Reviewed. GENERAL: Well-developed in no acute distress. HEENT: No sclera icterus. Extraocular movements grossly intact. Moist buccal mucosa. Head is atraumatic, normocephalic. ABDOMEN: Soft. Nondistended. Nondistended. Positive bowel sounds. NEUROLOGIC: Alert and oriented. Cranial nerves II through XII grossly intact. ASSESSMENT: 1. Abdominal pain, nausea, vomiting x 1 day 2. Choledocholithiasis 3. Elevated LFTs 4. History of cholecystectomy PLAN: Diet as tolerated No surgical intervention recommended at this time. We will sign off. Please re-consult if needed Nurse practitioner note has been reviewed by physician. Signing provider agrees with the documented findings, assessment, and plan of care. Objective - Vital Signs Vital signs: Vital Signs Temp 98.3 F 01/15/19 08:00 Pulse 70 01/15/19 08:00 Resp 18 01/15/19 08:00 BP 147/63 01/15/19 08:00 Pulse Ox 91 L 01/15/19 08:00 Intake & Output 01/14/19 01/15/19 01/15/19 18:59 06:59 18:59 Intake Total 500 Output Total 400 Balance 500 -400 Weight 72.6 kg 73.3 kg Intake: IV 100 Cefepime 1 gm In Sodium 100 Chloride 0.9% 50 ml @ 100 mls/hr IVPB Q12HR [facility] Rx #:[id number] Oral 400 Output: Urine 400 Other: Voiding Method Toilet Toilet # Voids 2 3 1 # Bowel Movements 1 - Labs CBC & Chem 7: 01/15/19 05:16 01/15/19 05:16 Labs: Abnormal Lab Results - Last 24 Hours (Table) 01/15/19 01/15/19 Range/Units 05:16 05:16 WBC 10.9 H (3.8-10.6) k/uL RBC 3.49 L (4.30-5.90) m/uL Hgb 11.0 L (13.0-17.5) gm/dL Hct 33.5 L (39.0-53.0) % RDW 15.6 H (11.5-15.5) % Plt Count 129 L (150-450) k/uL Potassium 3.4 L (3.5-5.1) mmol/L Glucose 100 H (74-99) mg/dL Calcium 7.9 L (8.4-10.2) mg/dL Total Bilirubin 2.5 H (0.2-1.3) mg/dL Alkaline Phosphatase 377 H (38-126) U/L Total Protein 4.7 L (6.3-8.2) g/dL Albumin 2.2 L (3.5-5.0) g/dL
--- NOTE | 2019-01-15 15:39 | CDI ---
Documentation Clarification Form Date: 01/15/2019 3:27:40 PM From: Delilah JimenezMorejonGABRIELA, CCDS Admit Date: 01/10/2019 9:02:00 PM Patient Name: Russell Frazier Visit Number: [id number] Discharge Date: ATTENTION: The Clinical Documentation Specialists (CDI) and [facility] Coding Staff appreciate your assistance in clarifying documentation. Please respond to the clarification below the line at the bottom and electronically sign. The CDI & [facility] Coding staff will review the response and follow-up if needed. Please note: Queries are made part of the Legal Health Record. If you have any questions, please contact the author of this message via ITS. Dr. Femi Cleary: Malnutrition has been documented in the ED impression, the History & Physical & the subsequent progress notes without severity. History/Risk Factors: Hyperlipidemia. Cholecystectomy, Major depressive disorder. Smoker. Home meds: Plavix, Pepcid, Prozac. Clinical Indicators: Presented to with fever, weakness, chills, abdominal pain & nausea & vomiting Labs: WBC (9.3) - 18.5^, Hgb 12.9 - 11.6*; K 3.1*, Gluc 130^, Lactic Acid 5.8^^, 3.0^^, 2.7^^; Mac 8.3*, Phos 0.9, Mag 1.5*, Total Bili 2.9^, AST 351^, ALT 170^, Alkk Phos 602^, Total Protein 5.6*, Albumin 3.0*. Current BMI: 24.6 Nutritional assessment: Diagnosed with sepsis & anorexia. Smoker & uses marijuana. Status post ERCP & removal of CBD stone, cholelithiasis. Nutrition intake poor 2 - 25-50%, Poor appetite, BMI: 22.3 - 24.3. Treatment: Oral supplements, IV fluid bolus, IV Rocephin, IV fluid rate 100, IV MagSulf, IV NaPhosphage, IV Flagyl, IV Kcl, IV Lasix & IV Zofran In your professional opinion, can you please clarify if these findings signify one of the following conditions? Mild Protein-Calorie Malnutrition Moderate Protein-Calorie Malnutrition Severe Protein-Calorie Malnutrition Malnutrition following GI surgery Other condition, please specify Unable to determine (Last Revision: December 2018) This patient did have moderate protein-calorie malnutrition on admission MTDD
[2019-01-15 23:41] VITALS: PULSE 62
[2019-01-16 06:24] LABS: Calcium 7.9 mg/dL (8.4-10.2); Potassium 3.6 mmol/L (3.5-5.1)
[2019-01-16] MEDS ORDERED: POTASSIUM CHLORIDE ER 20 MEQ TAB.ER PO SCH (07:00)
[2019-01-16] MEDS: PANTOPRAZOLE 40 MG TABLET PO SCH (07:13)
[2019-01-16] MEDS: LISINOPRIL 10 MG TAB PO SCH (08:22)
[2019-01-16] MEDS: FLUTICASONE 50MCG/SPRAY NASAL 16GM EA NOSTRIL SCH (08:22)
[2019-01-16] MEDS: guaiFENesin 600 MG TABLET.ER PO SCH (08:22)
[2019-01-16] MEDS: FLUoxetine HCL 20 MG CAP PO SCH (08:22)
[2019-01-16] MEDS: CEFDINIR 300 MG CAP PO SCH (08:22)
[2019-01-16] MEDS: metroNIDAZOLE 500 MG TAB PO SCH (08:22)
--- NOTE | 2019-01-16 10:12 | P.DS ---
Providers Date of admission: 01/10/19 21:02 Expected date of discharge: 01/16/19 Attending physician: Femi Cleary MD Primary care physician: Anabella Will - Discharge Diagnosis(es) (1) Severe sepsis with acute organ dysfunction due to Gram negative bacteria Current Visit: Yes Status: Acute (2) Choledocholithiasis Current Visit: Yes Status: Acute (3) Obstructive jaundice Current Visit: Yes Status: Acute (4) Malnutrition Current Visit: Yes Status: Acute (5) Hypocalcemia Current Visit: Yes Status: Acute (6) Hypokalemia Current Visit: Yes Status: Acute (7) Moderate protein-calorie malnutrition Current Visit: Yes Status: Acute Hospital Course: Russell Frazier is a 68 yo M with PMH significant for COPD, major depressive disorder, HLD who was brought into [facility] ED via EMS for nausea/vomiting and weakness. He has had RUQ pain and felt chilled for approx 2 days, then vomited multiple times throughout the day yesterday. His daughter called EMS as pt was too weak to get out of bed after vomiting. Pt states that his approx 1 month ago and since then he has stopped taking care of himself and has had nothing but [employer] biscuits and hamburgers to eat in the past few weeks. He denies alcohol use but smoking tobacco and MJ daily. In the ED he was febrile to 102, WBC 18, elevated alk phos, bilirubin and lactic. CT abd/pelvis revealed dilated CBD with 8 mm stone. Pt was admitted to medicine with surgery and gastroenterology consults. He was started on cefepime and flagyl to cover ascending cholangitis. Blood culture did grow klebsiella. An ERCP was performed on 01/13 with retrieval of a 15 mm CBD stone. Subsequent to this pt noted resolution of his abdominal pain and lab values normalizing. He was transitioned to omnicef and oral flagyl. On 01/14 pt did complain of increased cough and temp increased to 100 overnight, CXR showed cardiomegaly and interstitial prominence after being given more than 5 L IVF for his sepsis. He was given an incentive spirometer and one time dose of lasix. Pt had no further cough, shortness of breath and continued to feel well. His diet was advanced and on day of discharge he was tolerating regular diet and feeling at baseline. He will continue omnicef and flagyl for additional days and follow up with PCP within 1 week. He is recommended to have follow up blood work checked as an outpatient. Patient Condition at Discharge: Serious Plan - Discharge Summary Discharge Rx Participant: No New Discharge Prescriptions: New metroNIDAZOLE [Flagyl] 500 mg PO TID #15 tab Fluticasone Nasal [place] [Flonase Nasal [place]] 2 spray EA NOSTRIL DAILY #1 pump guaiFENesin [Mucinex] 600 mg PO Q12HR tablet.er Cefdinir [Omnicef] 300 mg PO BID #10 cap Continue Famotidine [Pepcid] 20 mg PO BID Clopidogrel [Plavix] 75 mg PO DAILY FLUoxetine HCL [PROzac] 20 mg PO DAILY Lisinopril [Zestril] 10 mg PO DAILY amLODIPine BESYLATE 5 mg PO DAILY traMADol HCl [Ultram] 50 mg PO BID Atorvastatin [Lipitor] 40 mg PO DAILY Aspirin EC [Ecotrin] 325 mg PO DAILY Discharge Medication List Clopidogrel [Plavix] 75 mg PO DAILY 08/27/15 [History] Famotidine [Pepcid] 20 mg PO BID 08/27/15 [History] FLUoxetine HCL [PROzac] 20 mg PO DAILY 01/10/19 [History] Aspirin EC [Ecotrin] 325 mg PO DAILY 01/12/19 [History] Atorvastatin [Lipitor] 40 mg PO DAILY 01/12/19 [History] Lisinopril [Zestril] 10 mg PO DAILY 01/12/19 [History] amLODIPine BESYLATE 5 mg PO DAILY 01/12/19 [History] traMADol HCl [Ultram] 50 mg PO BID 01/12/19 [History] Cefdinir [Omnicef] 300 mg PO BID #10 cap 01/16/19 [Rx] Fluticasone Nasal [place] [Flonase Nasal [place]] 2 spray EA NOSTRIL DAILY #1 pump 01/16/19 [Rx] guaiFENesin [Mucinex] 600 mg PO Q12HR tablet.er 01/16/19 [Rx] metroNIDAZOLE [Flagyl] 500 mg PO TID #15 tab 01/16/19 [Rx] Follow up Appointment(s)/Referral(s): Anabella Will DO [Primary Care Provider] - 1-2 days Cong Leone MD [STAFF PHYSICIAN] - As Needed Discharge Disposition: HOME SELF-CARE
[2019-01-16 12:49] VITALS: BP 130/70; TEMP 98
== END 2019-01-16 13:40 | disposition home or self-care (01) | DRG 872 ==
LOC: EC 18:14 → 3SCARD 21:02 → 2SICU 01-11 09:23
PROVIDERS: ADMIT Family Medicine; ATTEND Family Medicine
PROC: 0F798ZZ Dilation of Common Bile Duct, Via Natural or Artificial Opening Endoscopic (ICD-10-PCS; principal; 2019-01-12 14:00)
PROC: 0FC98ZZ Extirpation of Matter from Common Bile Duct, Via Natural or Artificial Opening Endoscopic (ICD-10-PCS; 2019-01-12 14:00)
PROC: BF101ZZ Fluoroscopy of Bile Ducts using Low Osmolar Contrast (ICD-10-PCS; 2019-01-12 14:00)
DX: A41.50 Gram-negative sepsis, unspecified (principal); E44.0 Moderate protein-calorie malnutrition; K80.31 Calculus of bile duct with cholangitis, unspecified, with obstruction; J98.11 Atelectasis; R65.20 Severe sepsis without septic shock; E83.51 Hypocalcemia; I69.998 Other sequelae following unspecified cerebrovascular disease; J44.9 Chronic obstructive pulmonary disease, unspecified; E78.5 Hyperlipidemia, unspecified; E87.6 Hypokalemia; F17.200 Nicotine dependence, unspecified, uncomplicated; I51.7 Cardiomegaly; F32.9 Major depressive disorder, single episode, unspecified; R74.8 Abnormal levels of other serum enzymes; I73.9 Peripheral vascular disease, unspecified; H53.9 Unspecified visual disturbance; Z79.02 Long term (current) use of antithrombotics/antiplatelets; Z79.82 Long term (current) use of aspirin; Z79.899 Other long term (current) drug therapy; Z90.49 Acquired absence of other specified parts of digestive tract; Z88.0 Allergy status to penicillin; Z88.2 Allergy status to sulfonamides
CPT/HCPCS: 36415; 43260; 43262; 43277; 71045; 71046; 74177; 74330; 76705; 80048; 80053; 80074; 81001; 83605; 83690; 83735; 84100; 84132; 85025; 85027; 85610; 87040; 87077; 87086; 87186; 93005; 96361; 96365; 96366; 96367; 96372; 96375; 99291

== ENCOUNTER 2019-04-01 15:14 | Emergency (ER) | payer MEDICARE ==
--- NOTE | 2019-04-01 15:31 | ED ---
General Adult HPI - General Chief complaint: Upper Respiratory Infection Stated complaint: Head/chest Congestion Time Seen by Provider: 04/01/19 15:23 Source: patient, RN notes reviewed Mode of arrival: ambulatory Limitations: no limitations - History of Present Illness Initial comments: 69-year-old male presents to the emergency department for a chief complaint of cough and congestion. Patient states this has been ongoing for about 2 weeks. States he has a head cold and feels his sinuses are clogged and he has a runny nose. However patient does not have a headache despite triage note. Denies ever having a headache. Denies any neck pain. Denies any fevers or chills. Does admit to productive cough with white and clear sputum. Does admit to smoking history but denies any history of COPD or asthma. States that he just cannot seem to get rid of this cough.Patient has no other complaints at this time including shortness of breath, chest pain, abdominal pain, nausea or vomiting, headache, or visual changes. - Related Data Home Medications Medication Instructions Recorded Confirmed Clopidogrel [Plavix] 75 mg PO DAILY 08/27/15 04/01/19 Famotidine [Pepcid] 20 mg PO BID 08/27/15 04/01/19 FLUoxetine HCL [PROzac] 20 mg PO DAILY 01/10/19 04/01/19 Atorvastatin [Lipitor] 40 mg PO DAILY 01/12/19 04/01/19 Lisinopril [Zestril] 10 mg PO DAILY 01/12/19 04/01/19 amLODIPine BESYLATE 5 mg PO DAILY 01/12/19 04/01/19 Previous Rx's Medication Instructions Recorded Fluticasone Nasal [place] [Flonase 2 spray EA NOSTRIL DAILY #1 pump 01/16/19 Nasal [place]] Albuterol Inhaler [Ventolin Hfa 1 - 2 puff INHALATION Q6HR PRN #1 04/01/19 Inhaler] inhaler Azithromycin [Zithromax Z-pack] 250 mg PO DIRECTED #6 tab 04/01/19 predniSONE 50 mg PO DAILY #5 tablet 04/01/19 Allergies Allergy/AdvReac Type Severity Reaction Status Date / Time Penicillins Allergy Rash/Hives Verified 04/01/19 15:47 Sulfa (Sulfonamide Allergy Unknown Verified 04/01/19 15:47 Antibiotics) Review of Systems ROS Statement: Those systems with pertinent positive or pertinent negative responses have been documented in the HPI. ROS Other: All systems not noted in ROS Statement are negative. Past Medical History Past Medical History: No Reported History History of Any Multi-Drug Resistant Organisms: None Reported Past Surgical History: No Surgical Hx Reported Past Anesthesia/Blood Transfusion Reactions: No Reported Reaction Past Psychological History: No Psychological Hx Reported Smoking Status: Current every day smoker Past Alcohol Use History: None Reported Past Drug Use History: Marijuana General Exam Limitations: no limitations General appearance: alert, in no apparent distress Head exam: Present: atraumatic, normocephalic, normal inspection Eye exam: Present: normal appearance, PERRL, EOMI. Absent: scleral icterus, conjunctival injection, periorbital swelling ENT exam: Present: normal exam, mucous membranes moist Neck exam: Present: normal inspection, full ROM. Absent: tenderness, meningismus, lymphadenopathy Respiratory exam: Present: wheezes (Mild wheezing noted throughout lung becerra.). Absent: respiratory distress (No respiratory distress, patient is resting comfortably), rales, rhonchi, stridor, chest wall tenderness Cardiovascular Exam: Present: regular rate, normal rhythm, normal heart sounds. Absent: systolic murmur, diastolic murmur, rubs, gallop, clicks Neurological exam: Present: alert Psychiatric exam: Present: normal affect, normal mood Course Vital Signs 04/01/19 15:16 Temperature 98.8 F Pulse Rate 50 L Respiratory 20 Rate Blood Pressure 117/61 O2 Sat by Pulse 96 Oximetry Medical Decision Making - Medical Decision Making HPI and Physical exam as documented. No pertinent past medical history besides a smoking history. CBC is unremarkable. White blood cell count is normal. CMP unremarkable as well. Chest x-ray shows no suspicious acute infiltrate currently. Influenza is negative. Patient was given a small fluid bolus. Patient was given breathing treatments and IV steroids here in the emergency department as he does have wheezing noted. This is likely a bronchitis or an early exacerbation of COPD however no history. Patient will be treated with outpatient azithromycin, steroids, and albuterol inhaler. He does prefer to go home. - Lab Data Result diagrams: 04/01/19 16:05 04/01/19 16:05 Lab Results 04/01/19 04/01/19 04/01/19 Range/Units 16:05 16:05 16:05 WBC 4.2 (3.8-10.6) k/uL RBC 4.16 L (4.30-5.90) m/uL Hgb 13.0 (13.0-17.5) gm/dL Hct 40.6 (39.0-53.0) % MCV 97.6 (80.0-100.0) fL MCH 31.3 (25.0-35.0) pg MCHC 32.1 (31.0-37.0) g/dL RDW 14.5 (11.5-15.5) % Plt Count 181 (150-450) k/uL Neutrophils % 44 % Lymphocytes % 44 % Monocytes % 5 % Eosinophils % 4 % Basophils % 1 % Neutrophils # 1.8 (1.3-7.7) k/uL Lymphocytes # 1.9 (1.0-4.8) k/uL Monocytes # 0.2 (0-1.0) k/uL Eosinophils # 0.2 (0-0.7) k/uL Basophils # 0.1 (0-0.2) k/uL Sodium 139 (137-145) mmol/L Potassium 3.7 (3.5-5.1) mmol/L Chloride 107 (98-107) mmol/L Carbon Dioxide 25 (22-30) mmol/L Anion Gap 7 mmol/L BUN 12 (9-20) mg/dL Creatinine 1.04 (0.66-1.25) mg/dL Est GFR (CKD-EPI)AfAm 84 (>60 ml/min/1.73 sqM) Est GFR (CKD-EPI)NonAf 73 (>60 ml/min/1.73 sqM) Glucose 152 H (74-99) mg/dL Calcium 9.2 (8.4-10.2) mg/dL Total Bilirubin 0.8 (0.2-1.3) mg/dL AST 26 (17-59) U/L ALT 22 (21-72) U/L Alkaline Phosphatase 76 (38-126) U/L Total Protein 6.5 (6.3-8.2) g/dL Albumin 3.6 (3.5-5.0) g/dL Influenza Type A RNA Not Detected (Not Detectd) Influenza Type B (PCR) Not Detected (Not Detectd) Disposition Clinical Impression: Wheezing, Cough, Sinusitis Disposition: HOME SELF-CARE Condition: Good Instructions (If sedation given, give patient instructions): Upper Respiratory Infection (ED) Additional Instructions: Please take steroids starting tomorrow. Use inhaler as needed. Take antibiotic as directed. These were prescribed to Joel. Follow-up with primary care in 1-2 days. If you're having worsening symptoms return here to the emergency department. Prescriptions: predniSONE 50 mg PO DAILY #5 tablet Albuterol Inhaler [Ventolin Hfa Inhaler] 1 - 2 puff INHALATION Q6HR PRN #1 inhaler PRN Reason: Shortness Of Breath Azithromycin [Zithromax Z-pack] 250 mg PO DIRECTED #6 tab Is patient prescribed a controlled substance at d/c from ED?: No Referrals: Anabella Will DO [Primary Care Provider] - 1-2 days Time of Disposition: 17:02
[2019-04-01] MEDS ORDERED: SODIUM CHLORIDE 0.9% 500 ML 500 ML IV STA (15:49)
--- NOTE | 2019-04-01 16:11 | XR ---
EXAMINATION TYPE: XR chest 2V DATE OF EXAM: 04/01/2019 COMPARISON: Prior chest x-ray January 14, 2019. HISTORY: Cough and congestion for 9 days. TECHNIQUE: Frontal and lateral views of the chest are obtained. FINDINGS: There is no focal air space opacity, pleural effusion, or pneumothorax seen on current [place] dy. The cardiac silhouette size remains within normal limits with atherosclerotic change in the aort ic knob. Multilevel spurring of the thoracic spine. IMPRESSION: No suspicious acute infiltrate currently.
[2019-04-01 16:20] LABS: Basophils # (A) 0.1 k/uL (0-0.2); Basophils % (A) 1 %; Eosinophils # (A) 0.2 k/uL (0-0.7); Eosinophils % (A) 4 %; HCT 40.6 % (39.0-53.0); Lymphocytes # (A) 1.9 k/uL (1.0-4.8); Lymphocytes % (A) 44 %; MCH 31.3 pg (25.0-35.0); MCHC 32.1 g/dL (31.0-37.0); MCV 97.6 fL (80.0-100.0); Mean Platelet Volume 8.3; Monocytes # (A) 0.2 k/uL (0-1.0); Monocytes % (A) 5 %; Neutrophils # (A) 1.8 k/uL (1.3-7.7); Neutrophils % (A) 44 %; Platelet Count 181 k/uL (150-450); RBC 4.16 m/uL (4.30-5.90); RDW 14.5 % (11.5-15.5); WBC 4.2 k/uL (3.8-10.6)
[2019-04-01 16:33] LABS: Albumin 3.6 g/dL (3.5-5.0); Calcium 9.2 mg/dL (8.4-10.2); Potassium 3.7 mmol/L (3.5-5.1); Total Bilirubin 0.8 mg/dL (0.2-1.3); Total Protein 6.5 g/dL (6.3-8.2)
[2019-04-01] MEDS ORDERED: IPRATROPIUM-ALBUTEROL 3 ML NEB INHALATION STA (16:56)
[2019-04-01] MEDS ORDERED: methylPREDNISolone SOD SUCCI 125 MG/2 ML VIAL IV STA (17:02)
[2019-04-01 17:53] VITALS: BP 157/73; PULSE 51; RESP 18; TEMP 97.9
== END 2019-04-01 17:45 | disposition home or self-care (01) ==
LOC: EC 15:14
DX: J32.9 Chronic sinusitis, unspecified (principal); R06.2 Wheezing; F17.200 Nicotine dependence, unspecified, uncomplicated; Z79.02 Long term (current) use of antithrombotics/antiplatelets; Z79.899 Other long term (current) drug therapy; Z88.0 Allergy status to penicillin; Z88.2 Allergy status to sulfonamides
CPT/HCPCS: 36415; 94640; 80053; 85025; 87502; 71046; 99284; 96374; 96361; J2930

== ENCOUNTER 2019-07-06 13:46 | Emergency (ER) | payer MEDICARE | END 2019-07-06 14:35 | disposition left against medical advice (07) | LOC: EC 13:46 | DX: K08.89 Other specified disorders of teeth and supporting structures (principal); Z53.21 Procedure and treatment not carried out due to patient leaving prior to being seen by health care provider | CPT/HCPCS: 99499 ==

== ENCOUNTER 2019-11-05 07:48 | Emergency (ER) | payer MEDICARE ==
[2019-11-05 07:55] VITALS: BP 176/79; PULSE 70; RESP 18; TEMP 98.1
--- NOTE | 2019-11-05 08:17 | ED ---
ENT HPI - General Chief complaint: Dental/Oral Stated complaint: dental pain Time Seen by Provider: 11/05/19 07:56 Source: patient, RN notes reviewed, old records reviewed Mode of arrival: ambulatory Limitations: no limitations - History of Present Illness Initial comments: Patient is a 69-year-old male with a history of poor dentition. He presents tod ay with complaints of worsening dental pain and now a loose tooth #27. Patient reports that he normally wears a plate on his lower teeth and is missing all teeth besides 28 through 26. Patient states that he noticed worsening pain starting 3 cough this morning. He thinks he may have bit it and his sleep. He denies any significant swelling to the jaw. He reports it started called dentist the past week to follow-up with his chronic adventitial shoes but they've all been flows due to COVID crisis. - Related Data Home Medications Medication Instructions Recorded Confirmed Clopidogrel [Plavix] 75 mg PO DAILY 08/27/15 04/01/19 Famotidine [Pepcid] 20 mg PO BID 08/27/15 04/01/19 FLUoxetine HCL [PROzac] 20 mg PO DAILY 01/10/19 04/01/19 Atorvastatin [Lipitor] 40 mg PO DAILY 01/12/19 04/01/19 Lisinopril [Zestril] 10 mg PO DAILY 01/12/19 04/01/19 amLODIPine BESYLATE 5 mg PO DAILY 01/12/19 04/01/19 Previous Rx's Medication Instructions Recorded Fluticasone Nasal [place] [Flonase 2 spray EA NOSTRIL DAILY #1 pump 01/16/19 Nasal [place]] Albuterol Inhaler (Mhu) [Ventolin 1 - 2 puff INHALATION Q6HR PRN #1 04/01/19 Hfa Inhaler (Mhu)] inhaler Azithromycin [Zithromax Z-pack] 250 mg PO DIRECTED #6 tab 04/01/19 predniSONE 50 mg PO DAILY #5 tablet 04/01/19 Clindamycin [Cleocin] 450 mg PO TID 7 Days capsule 11/05/19 Ibuprofen [Motrin] 600 mg PO Q6HR PRN #30 tab 11/05/19 Allergies Allergy/AdvReac Type Severity Reaction Status Date / Time Penicillins Allergy Rash/Hives Verified 11/05/19 07:55 Sulfa (Sulfonamide Allergy Unknown Verified 11/05/19 07:55 Antibiotics) Review of Systems ROS Statement: Those systems with pertinent positive or pertinent negative responses have been documented in the HPI. ROS Other: All systems not noted in ROS Statement are negative. Past Medical History Past Medical History: CVA/TIA, Hypertension Additional Past Medical History / Comment(s): vision trouble right eye History of Any Multi-Drug Resistant Organisms: None Reported Past Surgical History: Appendectomy, Cholecystectomy, Tonsillectomy Past Anesthesia/Blood Transfusion Reactions: No Reported Reaction Past Psychological History: No Psychological Hx Reported Smoking Status: Current every day smoker Past Alcohol Use History: None Reported Past Drug Use History: Marijuana General Exam - General Exam Comments Initial Comments: 69-year-old male. Limitations: no limitations General appearance: alert, in no apparent distress Head exam: Present: atraumatic, normocephalic, normal inspection Eye exam: Present: normal appearance, PERRL, EOMI. Absent: scleral icterus, conjunctival injection, periorbital swelling ENT exam: Present: normal exam, normal oropharynx (Patient has evidence of poor dentition. Multiple teeth are missing on the lower jaw. Patient has a loose tooth #28.), mucous membranes moist Neck exam: Present: normal inspection. Absent: tenderness, meningismus, lymphadenopathy Respiratory exam: Present: normal lung sounds bilaterally. Absent: respiratory distress, wheezes, rales, rhonchi, stridor Cardiovascular Exam: Present: regular rate, normal rhythm, normal heart sounds. Absent: systolic murmur, diastolic murmur, rubs, gallop, clicks GI/Abdominal exam: Present: soft, normal bowel sounds. Absent: distended, tenderness, guarding, rebound, rigid Extremities exam: Present: normal inspection, full ROM, normal capillary refill. Absent: tenderness, pedal edema, joint swelling, calf tenderness Back exam: Present: normal inspection Neurological exam: Present: alert, oriented X3, CN II-XII intact Psychiatric exam: Present: normal affect, normal mood Skin exam: Present: warm, dry, intact, normal color. Absent: rash Course Vital Signs 11/05/19 07:51 Temperature 98.1 F Pulse Rate 70 Respiratory 18 Rate Blood Pressure 176/79 O2 Sat by Pulse 97 Oximetry Medical Decision Making - Medical Decision Making 69-year-old male presents today for either for concern for dental pain. Patient has loose tooth #28 with multiple poor dentition and missing teeth. Typically wears a dental plate. Discussed Patient is follow-up with a dentist. Time of discharge Patient with antibiotic short course of pain medication. Discussed return parameters with PCP follow-up. All questions answered. - Radiology Data Radiology results: report reviewed Disposition Clinical Impression: Pain, dental Disposition: HOME SELF-CARE Condition: Good Instructions (If sedation given, give patient instructions): Toothache (ED) Additional Instructions: Please use medication as discussed. Please follow up with family doctor if symptoms have not improved over the next two days. Please return to the emergency room if your symptoms increase or worsen or for any other concerns. [facility] [place] [address] [place] [address] [phone] (existing clients only) For new clients: [phone] 1st consult: $50 (includes Xrays) Usually 30% less then private dentist for visits after. [employer] Have to pay $50 for Xrays anmd rest is covered. [phone] Prescriptions: Clindamycin [Cleocin] 450 mg PO TID 7 Days capsule Ibuprofen [Motrin] 600 mg PO Q6HR PRN #30 tab PRN Reason: Pain Is patient prescribed a controlled substance at d/c from ED?: No Referrals: Anabella Will DO [Primary Care Provider] - 1-2 days Time of Disposition: 08:16
[2019-11-05] MEDS ORDERED: CLINDAMYCIN 150 MG CAP PO STA (08:18)
[2019-11-05] MEDS ORDERED: ACET/COD 300 MG/30 MG STARTER PACK 6 TAB BTL PO STA (08:18)
== END 2019-11-05 08:39 | disposition home or self-care (01) ==
LOC: EC 07:48
DX: K08.89 Other specified disorders of teeth and supporting structures (principal); I10 Essential (primary) hypertension; F17.200 Nicotine dependence, unspecified, uncomplicated; Z79.02 Long term (current) use of antithrombotics/antiplatelets; Z79.899 Other long term (current) drug therapy; Z88.0 Allergy status to penicillin; Z88.2 Allergy status to sulfonamides; Z86.73 Personal history of transient ischemic attack (TIA), and cerebral infarction without residual deficits
CPT/HCPCS: 99283

== ENCOUNTER 2023-06-27 05:14 | Emergency (ER) | payer MEDICARE ==
[2023-06-27 05:31] VITALS: BP 177/59; PULSE 60; RESP 18; TEMP 97.9
--- NOTE | 2023-06-27 06:01 | ED ---
General Adult HPI - General Chief complaint: ENT Stated complaint: L Ear Pain Time Seen by Provider: 06/27/23 05:42 Source: patient, RN notes reviewed, old records reviewed Mode of arrival: ambulatory Limitations: no limitations - History of Present Illness Initial comments: 73-year-old male with left ear pain. Patient's symptoms have been present for the past 24 hours. He had noticed some drainage from the year. No fever. - Related Data Home Medications Medication Instructions Recorded Confirmed Clopidogrel [Plavix] 75 mg PO DAILY 08/27/15 04/01/19 Famotidine [Pepcid] 20 mg PO BID 08/27/15 04/01/19 FLUoxetine HCL [PROzac] 20 mg PO DAILY 01/10/19 04/01/19 Atorvastatin [Lipitor] 40 mg PO DAILY 01/12/19 04/01/19 amLODIPine BESYLATE 5 mg PO DAILY 01/12/19 04/01/19 lisinopriL [Zestril] 10 mg PO DAILY 01/12/19 04/01/19 Previous Rx's Medication Instructions Recorded Fluticasone Nasal [place] [employer] [Flonase 2 spray EA NOSTRIL DAILY #1 pump 01/16/19 Nasal [place] [employer]] Albuterol Inhaler [Ventolin Hfa 1 - 2 puff INHALATION Q6HR PRN #1 04/01/19 Inhaler] inhaler Azithromycin [Zithromax Z-pack (6 250 mg PO DIRECTED #6 tab 04/01/19 tabs)] predniSONE 50 mg PO DAILY #5 tablet 04/01/19 Clindamycin [Cleocin] 450 mg PO TID 7 Days capsule 11/05/19 Ibuprofen [Motrin] 600 mg PO Q6HR PRN #30 tab 11/05/19 Ciprofloxacin-Dexameth [Ciprodex 4 drops LEFT EAR BID #7.5 ml 06/27/23 Otic Susp] Allergies Allergy/AdvReac Type Severity Reaction Status Date / Time Penicillins Allergy Rash/Hives Verified 06/27/23 05:31 Sulfa (Sulfonamide Allergy Unknown Verified 06/27/23 05:31 Antibiotics) Review of Systems ROS Statement: Those systems with pertinent positive or pertinent negative responses have been documented in the HPI. ROS Other: All systems not noted in ROS Statement are negative. Past Medical History Past Medical History: CVA/TIA, Hypertension Additional Past Medical History / Comment(s): vision trouble right eye History of Any Multi-Drug Resistant Organisms: None Reported Past Surgical History: Appendectomy, Cholecystectomy, Tonsillectomy Past Anesthesia/Blood Transfusion Reactions: No Reported Reaction Past Psychological History: No Psychological Hx Reported Smoking Status: Current every day smoker Past Alcohol Use History: Occasional Past Drug Use History: Marijuana General Exam Limitations: no limitations General appearance: alert, in no apparent distress Head exam: Present: atraumatic, normocephalic Eye exam: Present: normal appearance, PERRL ENT exam: Present: other (The tympanic membrane of patient erythematous and the external auditory canal is excoriated and has dried blood.) Respiratory exam: Absent: respiratory distress Cardiovascular Exam: Present: regular rate, normal rhythm GI/Abdominal exam: Present: soft. Absent: distended Course Vital Signs 06/27/23 05:29 Temperature 97.9 F Pulse Rate 60 Respiratory 18 Rate Blood Pressure 177/59 O2 Sat by Pulse 97 Oximetry Medical Decision Making - Medical Decision Making Was pt. sent in by a medical professional or institution (, PA, HIGH DENSITY FINISHING OPERATOR, urgent care, hospital, or correction...) When possible be specific @ -No Did you speak to anyone other than the patient for history (EMS, parent, family, police, friend...)? What history was obtained from this source @ -No Did you review nursing and triage notes (agree or disagree)? Why? @ -I reviewed and agree with nursing and triage notes Were old charts reviewed (outside hosp., previous admission, EMS record, old EKG, old radiological studies, urgent care reports/EKG's, correction records)? Report findings @ -No old charts were reviewed Differential Diagnosis (chest pain, altered mental status, abdominal pain women, abdominal pain men, vaginal bleeding, weakness, fever, dyspnea, syncope, headache, dizziness, GI bleed, back pain, seizure, CVA, palpatations, mental health, musculoskeletal)? @ -Otitis media, otitis externa, mastoiditis EKG interpreted by me (3pts min.). @ -As above X-rays interpreted by me (1pt min.). @ -None done CT interpreted by me (1pt min.). @ -None done U/S interpreted by me (1pt. min.). @ -None done What testing was considered but not performed or refused? (CT, X-rays, U/S, labs)? Why? @ -None What meds were considered but not given or refused? Why? @ -None Did you discuss the management of the patient with other professionals (professionals i.e. , PA, HIGH DENSITY FINISHING OPERATOR, lab, RT, psych nurse, healthcare social worker, rubber trimmer, teacher, professional security officer, case management social worker)? Give summary @ -No Was smoking cessation discussed for >3mins.? @ -No Was critical care preformed (if so, how long)? @ -No Were there social determinants of health that impacted care today? How? (Homelessness, low income, unemployed, alcoholism, drug addiction, transportation, low edu. Level, literacy, decrease access to med. care, longterm, rehab)? @ -No Was there de-escalation of care discussed even if they declined (Discuss DNR or withdrawal of care, Hospice)? DNR status @ -No What co-morbidities impacted this encounter? (DM, HTN, Smoking, COPD, CAD, Cancer, CVA, ARF, Chemo, Hep., AIDS, mental health diagnosis, sleep apnea, morbid obesity)? @ -None Was patient admitted / discharged? Hospital course, mention meds given and route, prescriptions, significant lab abnormalities, going to OR and other pertinent info. @ -[Discharged with topical antibiotics Undiagnosed new problem with uncertain prognosis? @ -No Drug Therapy requiring intensive monitoring for toxicity (Heparin, Nitro, Insulin, Cardizem)? @ -No Were any procedures done? @ -No Diagnosis/symptom? @ -Otitis externa Acute, or Chronic, or Acute on Chronic? @ -acute Uncomplicated (without systemic symptoms) or Complicated (systemic symptoms)? @ -default Side effects of treatment? @ -No Exacerbation, Progression, or Severe Exacerbation? @ -No Poses a threat to life or bodily function? How? (Chest pain, [place], [place], pneumonia, PE, COPD, DKA, ARF, appy, cholecystitis, CVA, Diverticulitis, Homicidal, Suicidal, threat to staff... and all critical care pts) @ -No Disposition Clinical Impression: Otitis externa Disposition: HOME SELF-CARE Condition: Fair Instructions (If sedation given, give patient instructions): Earache (ED), Swimmer's Ear (ED) Prescriptions: Ciprofloxacin-Dexameth [Ciprodex Otic Susp] 4 drops LEFT EAR BID #7.5 ml Is patient prescribed a controlled substance at d/c from ED?: No Referrals: Anabella Will DO [Primary Care Provider] - 1-2 days Time of Disposition: 06:00
== END 2023-06-27 06:17 | disposition home or self-care (01) ==
LOC: EC 05:14
DX: H60.92 Unspecified otitis externa, left ear (principal); I10 Essential (primary) hypertension; F17.200 Nicotine dependence, unspecified, uncomplicated; F12.90 Cannabis use, unspecified, uncomplicated; Z79.02 Long term (current) use of antithrombotics/antiplatelets; Z79.899 Other long term (current) drug therapy; Z88.0 Allergy status to penicillin; Z88.2 Allergy status to sulfonamides; Z86.73 Personal history of transient ischemic attack (TIA), and cerebral infarction without residual deficits
CPT/HCPCS: 99282

== ENCOUNTER 2023-06-29 07:49 | Emergency (ER) | payer MEDICARE ==
[2023-06-29] MEDS ORDERED: ACET/COD 300 MG/30 MG STARTER PACK 6 TAB BTL PO STA (08:10)
--- NOTE | 2023-06-29 08:12 | ED ---
General Adult HPI - General Stated complaint: mouth sores left side and ear pain Time Seen by Provider: 06/29/23 08:10 Source: patient, RN notes reviewed Mode of arrival: ambulatory Limitations: no limitations - History of Present Illness Initial comments: 73-year-old male presents emergency Department chief complaint rash, left sided face pain. Patient states he was seen here for left ear pain one initially started. He was given eardrops. He states is now developed sores on the left side of his face and pain is increased. Patient denies any ocular pain denies any change in vision. Patient offers no associated symptoms. - Related Data Home Medications Medication Instructions Recorded Confirmed Clopidogrel [Plavix] 75 mg PO DAILY 08/27/15 04/01/19 Famotidine [Pepcid] 20 mg PO BID 08/27/15 04/01/19 FLUoxetine HCL [PROzac] 20 mg PO DAILY 01/10/19 04/01/19 Atorvastatin [Lipitor] 40 mg PO DAILY 01/12/19 04/01/19 amLODIPine BESYLATE 5 mg PO DAILY 01/12/19 04/01/19 lisinopriL [Zestril] 10 mg PO DAILY 01/12/19 04/01/19 Previous Rx's Medication Instructions Recorded Fluticasone Nasal [place] [Flonase 2 spray EA NOSTRIL DAILY #1 pump 01/16/19 Nasal [place]] Albuterol Inhaler [Ventolin Hfa 1 - 2 puff INHALATION Q6HR PRN #1 04/01/19 Inhaler] inhaler Azithromycin [Zithromax Z-pack (6 250 mg PO DIRECTED #6 tab 04/01/19 tabs)] predniSONE 50 mg PO DAILY #5 tablet 04/01/19 Clindamycin [Cleocin] 450 mg PO TID 7 Days capsule 11/05/19 Ibuprofen [Motrin] 600 mg PO Q6HR PRN #30 tab 11/05/19 Ciprofloxacin-Dexameth [Ciprodex 4 drops LEFT EAR BID #7.5 ml 06/27/23 Otic Susp] valACYclovir HCL [Valtrex] 1,000 mg PO TID #30 tablet 06/29/23 Allergies Allergy/AdvReac Type Severity Reaction Status Date / Time Penicillins Allergy Rash/Hives Verified 06/27/23 05:31 Sulfa (Sulfonamide Allergy Unknown Verified 06/27/23 05:31 Antibiotics) Review of Systems ROS Statement: Those systems with pertinent positive or pertinent negative responses have been documented in the HPI. ROS Other: All systems not noted in ROS Statement are negative. Past Medical History Past Medical History: CVA/TIA, Hypertension Additional Past Medical History / Comment(s): vision trouble right eye History of Any Multi-Drug Resistant Organisms: None Reported Past Surgical History: Appendectomy, Cholecystectomy, Tonsillectomy Past Anesthesia/Blood Transfusion Reactions: No Reported Reaction Past Psychological History: No Psychological Hx Reported Smoking Status: Current every day smoker Past Alcohol Use History: Occasional Past Drug Use History: Marijuana General Exam Limitations: no limitations General appearance: alert, in no apparent distress Head exam: Present: atraumatic, normocephalic, normal inspection Eye exam: Present: normal appearance, PERRL, EOMI. Absent: scleral icterus, conjunctival injection, periorbital swelling ENT exam: Present: mucous membranes moist, TM's normal bilaterally, normal external ear exam, other (Erythematous ulcerated sores along the left mandibular region). Absent: normal exam, normal oropharynx (Edentulous) Neck exam: Present: normal inspection. Absent: tenderness, meningismus, lymphadenopathy Respiratory exam: Present: normal lung sounds bilaterally. Absent: respiratory distress, wheezes, rales, rhonchi, stridor Cardiovascular Exam: Present: regular rate, normal rhythm, normal heart sounds. Absent: systolic murmur, diastolic murmur, rubs, gallop, clicks Medical Decision Making - Medical Decision Making Was pt. sent in by a medical professional or institution (, PA, ELECTRIC SIGN ASSEMBLER, urgent care, hospital, or longterm...) When possible be specific @ -No Did you speak to anyone other than the patient for history (EMS, parent, family, police, friend...)? What history was obtained from this source @ -No Did you review nursing and triage notes (agree or disagree)? Why? @ -I reviewed and agree with nursing and triage notes Were old charts reviewed (outside hosp., previous admission, EMS record, old EKG, old radiological studies, urgent care reports/EKG's, longterm records)? Report findings @ -Reviewed recent visit Differential Diagnosis (chest pain, altered mental status, abdominal pain women, abdominal pain men, vaginal bleeding, weakness, fever, dyspnea, syncope, headache, dizziness, GI bleed, back pain, seizure, CVA, palpatations, mental h ealth, musculoskeletal)? @ -Contact dermatitis, cellulitis, herpes zoster, ALLERGIC reaction EKG interpreted by me (3pts min.). @ -[None X-rays interpreted by me (1pt min.). @ -None done CT interpreted by me (1pt min.). @ -None done U/S interpreted by me (1pt. min.). @ -None done What testing was considered but not performed or refused? (CT, X-rays, U/S, labs)? Why? @ -None What meds were considered but not given or refused? Why? @ -None Did you discuss the management of the patient with other professionals (professionals i.e. , PA, ELECTRIC SIGN ASSEMBLER, lab, RT, psych nurse, social media specialist, disaster recovery consultant, teacher, occupational medicine officer, case finisher)? Give summary @ -No Was smoking cessation discussed for >3mins.? @ -No Was critical care preformed (if so, how long)? @ -No Were there social determinants of health that impacted care today? How? (Homelessness, low income, unemployed, alcoholism, drug addiction, transportation, low edu. Level, literacy, decrease access to med. care, senior care, rehab)? @ -No Was there de-escalation of care discussed even if they declined (Discuss DNR or withdrawal of care, Hospice)? DNR status @ -No What co-morbidities impacted this encounter? (DM, HTN, Smoking, COPD, CAD, Cancer, CVA, ARF, Chemo, Hep., AIDS, mental health diagnosis, sleep apnea, morbid obesity)? @ -None Was patient admitted / discharged? Hospital course, mention meds given and route, prescriptions, significant lab abnormalities, going to OR and other pertinent info. @ -[Discharge patient has herpes zoster left side of his face. Patient started on Valtrex. Patient provided analgesics. Patient is discharged in stable condition with close follow-up. Undiagnosed new problem with uncertain prognosis? @ -No Drug Therapy requiring intensive monitoring for toxicity (Heparin, Nitro, Insulin, Cardizem)? @ -No Were any procedures done? @ -No Diagnosis/symptom? @ -Herpes zoster Acute, or Chronic, or Acute on Chronic? @ -Acute Uncomplicated (without systemic symptoms) or Complicated (systemic symptoms)? @ -Uncomplicated Side effects of treatment? @ -No Exacerbation, Progression, or Severe Exacerbation? @ -No Poses a threat to life or bodily function? How? (Chest pain, [place], [place], pneumonia, PE, COPD, DKA, ARF, appy, cholecystitis, CVA, Diverticulitis, Homicidal, Suicidal, threat to staff... and all critical care pts) @ -No Disposition Clinical Impression: Trina Disposition: HOME SELF-CARE Condition: Stable Instructions (If sedation given, give patient instructions): Trina (ED) Additional Instructions: Please return to the Emergency Department if symptoms worsen or any other concerns. Prescriptions: valACYclovir HCL [Valtrex] 1,000 mg PO TID #30 tablet Is patient prescribed a controlled substance at d/c from ED?: No Referrals: Anabella Will DO [Primary Care Provider] - 1-2 days Time of Disposition: 08:12
[2023-06-29 08:15] VITALS: RESP 18
[2023-06-29 09:51] VITALS: BP 202/79; PULSE 69; TEMP 98
== END 2023-06-29 09:35 | disposition home or self-care (01) ==
LOC: EC 07:49
DX: B02.9 Zoster without complications (principal); I10 Essential (primary) hypertension; F17.200 Nicotine dependence, unspecified, uncomplicated; F12.90 Cannabis use, unspecified, uncomplicated; Z86.73 Personal history of transient ischemic attack (TIA), and cerebral infarction without residual deficits; Z79.899 Other long term (current) drug therapy; Z79.02 Long term (current) use of antithrombotics/antiplatelets; Z88.2 Allergy status to sulfonamides; Z88.0 Allergy status to penicillin
CPT/HCPCS: 99283

== ENCOUNTER 2023-10-10 13:31 | Inpatient (IN) | payer MEDICARE ==
[2023-10-10] MEDS: NALOXONE 0.4 MG/ML 1 ML VIAL IVP STA (13:35)
--- NOTE | 2023-10-10 13:40 | ED ---
General Adult HPI - General Stated complaint: ams Time Seen by Provider: 10/10/23 13:33 - History of Present Illness Initial comments: Dictation was produced using [employer] dictation software. please excuse any grammatical, word or spelling errors. Chief Complaint: 73-year-old male presents emergency department for altered mental status History of Present Illness: 73-year-old male presents to the emergency department with EMS. History present illness obtained from EMS. Patient was allegedly drinking with his grandson last night. Last seen normal at 12. Grandson went to check on him this afternoon and found him on the ground laying down and altered. Is unclear what patient's medical history is. En route to the emergency department patient began seizing he was given 5 mg of Versed. Unable to obtain ROS secondary to mental status. - Related Data Home Medications Medication Instructions Recorded Confirmed No Known Home Medications 10/10/23 10/10/23 Allergies Allergy/AdvReac Type Severity Reaction Status Date / Time Penicillins Allergy Rash/Hives Verified 10/10/23 14:15 Sulfa (Sulfonamide Allergy Unknown Verified 10/10/23 14:15 Antibiotics) Review of Systems ROS Statement: Those systems with pertinent positive or pertinent negative responses have been documented in the HPI. ROS Other: All systems not noted in ROS Statement are negative. Past Medical History Past Medical History: CVA/TIA, Hypertension Additional Past Medical History / Comment(s): vision trouble right eye History of Any Multi-Drug Resistant Organisms: None Reported Past Surgical History: Appendectomy, Cholecystectomy, Tonsillectomy Past Anesthesia/Blood Transfusion Reactions: No Reported Reaction Past Psychological History: No Psychological Hx Reported Smoking Status: Current every day smoker Past Alcohol Use History: Occasional Past Drug Use History: Marijuana General Exam - General Exam Comments Initial Comments: PHYSICAL EXAM: General Impression: Obtunded, breathing HEENT: Normocephalic atraumatic, extra-ocular movements intact, pinpoint pupils Cardiovascular: Heart regular rate and rhythm Chest: no retractions, no tachypnea Abdomen: abdomen soft, non-distended, no organomegaly Musculoskeletal: Pulses present and equal in all extremities, no peripheral edema Neurological: C not follow commands, pinpoint pupils Skin: Intact with no visualized rashes Course Vital Signs 10/10/23 10/10/23 10/10/23 13:35 13:36 13:55 Temperature 98.5 F Pulse Rate 105 H 113 H Respiratory 31 H 32 H 36 H Rate Blood Pressure 112/98 143/84 O2 Sat by Pulse 94 L 95 Oximetry 10/10/23 10/10/23 10/10/23 14:04 14:15 14:30 Temperature Pulse Rate 107 H 116 H 106 H Respiratory 28 H 24 20 Rate Blood Pressure 130/83 157/97 162/95 O2 Sat by Pulse 97 97 95 Oximetry 10/10/23 10/10/23 15:01 16:05 Temperature 98.2 F 97.9 F Pulse Rate 100 95 Respiratory 30 H 16 Rate Blood Pressure 140/97 141/87 O2 Sat by Pulse 99 95 Oximetry - Reevaluation(s) Reevaluation #1: 10/10/23 14:[address] Barbosa at approximately 1:50 PM. He is reviewed the films states that he should be monitored to see if he returns back to baseline if so he can be admitted to the floor. If he has any concerns of status epilepticus to be transferred to [facility]. Patient not a candidate for tPA or thrombectomy. EKG Findings - EKG Comments: EKG Findings:: My EKG interpretation: Ventricular rate 112, sinus tachycardia, OR interval 156, cures 94, QTc 432. No OR prolongation, no QTC prolongation, no ST or T-wave changes noted. Overall, this EKG is unremarkable Medical Decision Making - Medical Decision Making Was pt. sent in by a medical professional or institution (, PA, FOOD CHEMIST, urgent care, hospital, or long-term...) When possible be specific @ -No Did you speak to anyone other than the patient for history (EMS, parent, family, police, friend...)? What history was obtained from this source @ -See above per EMS Did you review nursing and triage notes (agree or disagree)? Why? @ -I reviewed and agree with nursing and triage notes Were old charts reviewed (outside hosp., previous admission, EMS record, old EKG, old radiological studies, urgent care reports/EKG's, long-term records)? Report findings @ -No old charts were reviewed Differential Diagnosis (chest pain, altered mental status, abdominal pain women, abdominal pain men, vaginal bleeding, musculoskeletal, weakness, fever, dyspnea, syncope, headache, dizziness, GI bleed, back pain, seizure, CVA, palpatations, mental health)? @ -Differential Altered Mental Status: Hypoglycemia, DKA, hypercapnia, ETOH, overdose, CO poisoning, trauma, myxedema coma, HTN encephalopathy, infection, encephalitis, psychosis, intercranial hemorrhage, hepatic encephalopathy, meningitis, CVA, this is not meant to be an all-inclusive list EKG interpreted by me (3pts min.). @ -See above X-rays interpreted by me (1pt min.). @ -Chest x-ray is nonacute CT interpreted by me (1pt min.). @ -None done U/S interpreted by me (1pt. min.). @ -None done What testing was considered but not performed or refused? (CT, X-rays, U/S, labs)? Why? @ -None What meds were considered but not given or refused? Why? @ -None Did you discuss the management of the patient with other professionals (professionals i.e. , PA, FOOD CHEMIST, lab, RT, psych nurse, social research assistant, computed tomography scanner operator, teacher, corporate ethics officer, mental health case manager)? Give summary @ -Case discussed with hospitalist for admission. Case also discussed with neurologist Was smoking cessation discussed for >3mins.? @ -No Was critical care preformed (if so, how long)? @ -Yes, 33 minutes Were there social determinants of health that impacted care today? How? (Homelessness, low income, unemployed, alcoholism, drug addiction, transportation, low edu. Level, literacy, decrease access to med. care, retirement, rehab)? @ -No Was there de-escalation of care discussed even if they declined (Discuss DNR or withdrawal of care, Hospice)? DNR status @ -No What co-morbidities impacted this encounter? (DM, HTN, Smoking, COPD, CAD, Cancer, CVA, ARF, Chemo, Hep., AIDS, mental health diagnosis, sleep apnea, morbid obesity)? @ -History of old CVA Was patient admitted / discharged? Hospital course, mention meds given and route, prescriptions, significant lab abnormalities, going to OR and other p ertinent info. @ -See above Undiagnosed new problem with uncertain prognosis? @ -No Drug Therapy requiring intensive monitoring for toxicity (Heparin, Nitro, Insulin, Cardizem)? @ -No Were any procedures done? @ -No Diagnosis/symptom? Acute, or Chronic, or Acute on Chronic? Uncomplicated (with out systemic symptoms) or Complicated (systemic symptoms)? @ -73-year-old male presents emergency department after being found down at home. Patient altered had episode of seizure prior to arrival. He was given Versed prior to my evaluation. Code stroke was paged. Case discussed with neurologist who did not recommend thrombolytics or thrombectomy. Vital signs upon arrival are within acceptable limits. Laboratory evaluation obtained. Leukocytosis 17.3. Coag panel is unremarkable. Metabolic panel shows no gap acidosis. Troponin however is 3.190. Patient does not have any old troponins for trending. Daughter at the bedside states that patient does have history of CHF. Patient given rectal aspirin. Will be admitted with consultation to neurology and cardiology. Diagnosis: Altered mental status, elevated troponin Side effects of treatment? @ -No Exacerbation, Progression, or Severe Exacerbation? @ -No Poses a threat to life or bodily function? How? (Chest pain, [place], [place], pneumonia, PE, COPD, DKA, ARF, appy, cholecystitis, CVA, Diverticulitis, Homicidal, Suicidal, threat to staff... and all critical care pts) @ -yes - Lab Data Result diagrams: 10/10/23 14:38 10/10/23 15:54 Lab Results 10/10/23 10/10/23 10/10/23 Range/Units 13:58 14:38 14:38 WBC 17.3 H (3.8-10.6) k/uL RBC 4.32 (4.30-5.90) m/uL Hgb 14.1 (13.0-17.5) gm/dL Hct 44.2 (39.0-53.0) % MCV 102.3 H (80.0-100.0) fL MCH 32.7 (25.0-35.0) pg MCHC 32.0 (31.0-37.0) g/dL RDW 14.3 (11.5-15.5) % Plt Count 202 (150-450) k/uL MPV 8.3 Neutrophils % 88 % Lymphocytes % 5 % Monocytes % 5 % Eosinophils % 1 % Basophils % 0 % Neutrophils # 15.3 H (1.3-7.7) k/uL Lymphocytes # 0.9 L (1.0-4.8) k/uL Monocytes # 0.9 (0-1.0) k/uL Eosinophils # 0.1 (0-0.7) k/uL Basophils # 0.0 (0-0.2) k/uL Macrocytosis Slight PT (10.0-12.5) sec INR (<1.2) APTT (22.0-30.0) sec Sodium (137-145) mmol/L Potassium (3.5-5.1) mmol/L Chloride (98-107) mmol/L Carbon Dioxide (22-30) mmol/L Anion Gap mmol/L BUN (9-20) mg/dL Creatinine (0.66-1.25) mg/dL Est GFR (CKD-EPI)AfAm (>60 ml/min/1.73 sqM) Est GFR (CKD-EPI)NonAf (>60 ml/min/1.73 sqM) Glucose (74-99) mg/dL POC Glucose (mg/dL) 231 H (70-110) mg/dL POC Glu [employer] Repair Shop Manager ID Ricky Chavez Calcium (8.4-10.2) mg/dL Total Bilirubin (0.2-1.3) mg/dL AST (17-59) U/L ALT (4-49) U/L Alkaline Phosphatase (38-126) U/L Creatine Kinase (55-170) U/L Troponin I 3.190 H* (0.000-0.034) ng/mL Total Protein (6.3-8.2) g/dL Albumin (3.5-5.0) g/dL 10/10/23 10/10/23 Range/Units 14:38 15:54 WBC (3.8-10.6) k/uL RBC (4.30-5.90) m/uL Hgb (13.0-17.5) gm/dL Hct (39.0-53.0) % MCV (80.0-100.0) fL MCH (25.0-35.0) pg MCHC (31.0-37.0) g/dL RDW (11.5-15.5) % Plt Count (150-450) k/uL MPV Neutrophils % % Lymphocytes % % Monocytes % % Eosinophils % % Basophils % % Neutrophils # (1.3-7.7) k/uL Lymphocytes # (1.0-4.8) k/uL Monocytes # (0-1.0) k/uL Eosinophils # (0-0.7) k/uL Basophils # (0-0.2) k/uL Macrocytosis PT 11.4 (10.0-12.5) sec INR 1.1 (<1.2) APTT 23.2 (22.0-30.0) sec Sodium 139 (137-145) mmol/L Potassium 3.7 (3.5-5.1) mmol/L Chloride 110 H (98-107) mmol/L Carbon Dioxide 21 L (22-30) mmol/L Anion Gap 8 mmol/L BUN 11 (9-20) mg/dL Creatinine 1.44 H (0.66-1.25) mg/dL Est GFR (CKD-EPI)AfAm 55 (>60 ml/min/1.73 sqM) Est GFR (CKD-EPI)NonAf 47 (>60 ml/min/1.73 sqM) Glucose 113 H (74-99) mg/dL POC Glucose (mg/dL) (70-110) mg/dL POC Glu Auto Repair Shop Manager ID Calcium 8.4 (8.4-10.2) mg/dL Total Bilirubin 0.7 (0.2-1.3) mg/dL AST 46 (17-59) U/L ALT 17 (4-49) U/L Alkaline Phosphatase 80 (38-126) U/L Creatine Kinase 745 H (55-170) U/L Troponin I (0.000-0.034) ng/mL Total Protein 6.1 L (6.3-8.2) g/dL Albumin 3.5 (3.5-5.0) g/dL Disposition Clinical Impression: AMS (altered mental status) Disposition: ADMITTED IP TO THIS HOSP Condition: Serious Referrals: Anabella Will DO [Primary Care Provider] - 1-2 days Decision Time: 17:22
[2023-10-10] MEDS: SODIUM CHLORIDE 0.9% 1,000 ML IV STA (13:55)
[2023-10-10 14:00] LABS: Glucose,Whole Blood 231 mg/dL (70-110)
--- NOTE | 2023-10-10 14:08 | CT ---
EXAMINATION TYPE: CT brain wo con DATE OF EXAM: 10/10/2023 COMPARISON: INDICATION: CODE STROKE DLP: 1246.6 mGycm, Automated exposure control for dose reduction was used. CONTRAST: None CT of the brain is performed utilizing 3 mm thick sections through the posterior fossa and 3 mm thick sections through the remaining calvarium. Study is performed within 24 hours of arrival to the hosp ital. No abnormal hyperdensity is present to suggest an acute intracranial hemorrhage. No mass lesion is evident. No acute infarcts are evident. There is an old infarct in the left occipital lobe. This is an interva l finding from 05/25/2013. Chronic appearing periventricular white matter hypodensity is present, lik ashley on the basis of chronic white matter ischemic changes. Ventricles and sulci are appropriate for the patient age. Callosal thickening is to the bilateral ethmoid air cells and bilateral maxillary sinuses. Some mucos al thickening is within the left sphenoid sinus. Mastoid air cells appear clear. IMPRESSION: 1. No acute intracranial process. MRI can be performed as clinically indicated. 2. Old left occipital lobe infarct. 3. Chronic appearing periventricular white matter ischemic changes with atrophy
[2023-10-10 14:42] LABS: Basophils % (A) 0 %; Eosinophils # (A) 0.1 k/uL (0-0.7); Eosinophils % (A) 1 %; HCT 44.2 % (39.0-53.0); HGB 14.1 gm/dL (13.0-17.5); Lymphocytes # (A) 0.9 k/uL (1.0-4.8); Lymphocytes % (A) 5 %; MCH 32.7 pg (25.0-35.0); MCV 102.3 fL (80.0-100.0); Macrocytosis Slight; Mean Platelet Volume 8.3; Monocytes # (A) 0.9 k/uL (0-1.0); Monocytes % (A) 5 %; Neutrophils # (A) 15.3 k/uL (1.3-7.7); Neutrophils % (A) 88 %; Platelet Count 202 k/uL (150-450); RBC 4.32 m/uL (4.30-5.90); RDW 14.3 % (11.5-15.5); WBC 17.3 k/uL (3.8-10.6)
--- NOTE | 2023-10-10 15:11 | CT ---
EXAMINATION TYPE: CT angio head neck DATE OF EXAM: 10/10/2023 HISTORY: unresponsive COMPARISON: None CT DLP: 430.2 mGycm. Automated Exposure Control for Dose Reduction was Utilized. TECHNIQUE: CTA scan of the neck is performed with IV Contrast, patient injected with 65 ml mL of Iso tang 370, axial images are obtained, coronal and sagittal reformatted images are reviewed. Three-D rec onstructed images are created on an independent workstation and reviewed. Source images are reviewed . FINDINGS: Carotid/Vascular Structures: There is a 3 vessel arch. Common carotid arteries bifurcate into internal and external carotid arteries. Atheromatous plaquing is present. On the right, this has a moderate narrowing of 65% right atheromatous plaquing on the lef t has less than 50% narrowing. Vertebral arteries are codominant. Internal carotid arteries and vertebral arteries are patent to the skull base. Cervical of [place]: Vertebral basilar system appears normal. Internal carotid arteries bifurcate norm ally into A1 and M1 segments. A2 segments are normal. The anterior communicating artery is patent. The right posterior communicating artery is absent. The left posterior communicating artery is patent. Left posterior cerebral vasculature is displaced. There are some vessels crossing the occipital lobe infarct. Abrupt cut off is not identified IMPRESSION: 1. Moderate stenosis between 50 and 69% right internal carotid artery. 2. Mild narrowing of less than 50% left internal carotid artery. 3. Displacement of left posterior cerebral vasculature. 4. An abrupt cut off to account for the left occipital lobe infarct is not identified NASCET criteria was used in interpretation of this exam?
[2023-10-10 15:30] LABS: INR 1.1 (<1.2); Partial Thromboplastin Time 23.2 sec (22.0-30.0); Prothrombin Time 11.4 sec (10.0-12.5)
--- NOTE | 2023-10-10 15:52 | XR ---
EXAMINATION TYPE: XR chest 2V DATE OF EXAM: 10/10/2023 3:32 PM CLINICAL INDICATION:Male, 73 years old with history of altered mental status; [facility] COMPARISON: Chest radiographs from 04/01/2019 TECHNIQUE: XR chest 2V Frontal and lateral views of the chest. FINDINGS: Lungs/Pleura: Prominent interstitial lung markings are seen scattered throughout the lungs with trevon ening of the diaphragm and increased lucency of the lung apices. No evidence of focal consolidation, pneumothorax or pleural effusion. Pulmonary vascularity: Unremarkable. Heart/mediastinum: Cardiomediastinal silhouette is unremarkable. Musculoskeletal: No acute osseous pathology. IMPRESSION: 1. No acute cardiopulmonary disease process. 2. COPD changes.
[2023-10-10 16:28] LABS: ALT 17 U/L (4-49); AST 46 U/L (17-59); African American GFR (CKD) 55 (>60 ml/min/1.73 sqM); Albumin 3.5 g/dL (3.5-5.0); Alkaline Phosphatase 80 U/L (38-126); Anion Gap 8 mmol/L; Blood Urea Nitrogen 11 mg/dL (9-20); Calcium 8.4 mg/dL (8.4-10.2); Carbon Dioxide 21 mmol/L (22-30); Chloride 110 mmol/L (98-107); Creatine Kinase 745 U/L (55-170); Glucose 113 mg/dL (74-99); Non-African American GFR(CKD) 47 (>60 ml/min/1.73 sqM); Potassium 3.7 mmol/L (3.5-5.1); Sodium 139 mmol/L (137-145); Total Bilirubin 0.7 mg/dL (0.2-1.3); Total Protein 6.1 g/dL (6.3-8.2)
[2023-10-10] MEDS ORDERED: HEPARIN SOD,PORK IN 0.45% NACL 25,000 UNIT in 0.45% NACL 1 250ML.BAG IV SCH (17:30)
[2023-10-10] MEDS: ASPIRIN 300 MG SUPP RECTAL STA (17:44)
[2023-10-10] MEDS: HEPARIN SODIUM 1,000 UN/ML (10ML VL) IV ONE ×2 (17:44→20:13)
[2023-10-10] MEDS: levETIRAcetam IV 500 MG/5 ML VIAL IVP STA (18:14)
[2023-10-10] MEDS ORDERED: VANCOMYCIN IV PER PHARMACY 1 EACH MISC MISCELLANE PRN (18:49)
[2023-10-10] MEDS: CEFEPIME 2 GM in SODIUM CHLORIDE 0.9% 100 ML IVPB STA (18:59)
[2023-10-10] MEDS: ACETAMINOPHEN IV (For NPO) 1,000 MG in EMPTY BAG 1 BAG IVPB STA (19:42)
[2023-10-10] MEDS: VANCOMYCIN 1,000 MG in SODIUM CHLORIDE 0.9% 250 ML IVPB STA (19:44)
--- NOTE | 2023-10-10 19:55 | ED ---
Medical Decision Making - Medical Decision Making Patient was boarding in the emergency department when I was notified by the nurse that his second troponin was elevated. Troponin was elevated however is unclear what caused his elevated troponin. He did have a fever raising suspicion that patient has infection related elevated troponin. I did talk to cardiology and explained patient's initial presentation. Repeat EKG shows dynam ic changes. Dr. Castillo will review the case. Dr. Castillo reviewed the serial EKGs recommended [employer] activation. Code STEMI paged at 8:06 PM. Patient given heparin he had already received rectal aspirin. - Lab Data Result diagrams: 10/10/23 14:38 10/10/23 15:54 Lab Results 10/10/23 10/10/23 10/10/23 Range/Units 13:58 14:38 14:38 WBC 17.3 H (3.8-10.6) k/uL RBC 4.32 (4.30-5.90) m/uL Hgb 14.1 (13.0-17.5) gm/dL Hct 44.2 (39.0-53.0) % MCV 102.3 H (80.0-100.0) fL MCH 32.7 (25.0-35.0) pg MCHC 32.0 (31.0-37.0) g/dL RDW 14.3 (11.5-15.5) % Plt Count 202 (150-450) k/uL MPV 8.3 Neutrophils % 88 % Lymphocytes % 5 % Monocytes % 5 % Eosinophils % 1 % Basophils % 0 % Neutrophils # 15.3 H (1.3-7.7) k/uL Lymphocytes # 0.9 L (1.0-4.8) k/uL Monocytes # 0.9 (0-1.0) k/uL Eosinophils # 0.1 (0-0.7) k/uL Basophils # 0.0 (0-0.2) k/uL Macrocytosis Slight PT (10.0-12.5) sec INR (<1.2) APTT (22.0-30.0) sec Sodium (137-145) mmol/L Potassium (3.5-5.1) mmol/L Chloride (98-107) mmol/L Carbon Dioxide (22-30) mmol/L Anion Gap mmol/L BUN (9-20) mg/dL Creatinine (0.66-1.25) mg/dL Est GFR (CKD-EPI)AfAm (>60 ml/min/1.73 sqM) Est GFR (CKD-EPI)NonAf (>60 ml/min/1.73 sqM) Glucose (74-99) mg/dL POC Glucose (mg/dL) 231 H (70-110) mg/dL POC Glu Cap Sizer ID Ricky Chavez Calcium (8.4-10.2) mg/dL Total Bilirubin (0.2-1.3) mg/dL AST (17-59) U/L ALT (4-49) U/L Alkaline Phosphatase (38-126) U/L Creatine Kinase (55-170) U/L Troponin I 3.190 H* (0.000-0.034) ng/mL Total Protein (6.3-8.2) g/dL Albumin (3.5-5.0) g/dL 10/10/23 10/10/23 Range/Units 14:38 15:54 WBC (3.8-10.6) k/uL RBC (4.30-5.90) m/uL Hgb (13.0-17.5) gm/dL Hct (39.0-53.0) % MCV (80.0-100.0) fL MCH (25.0-35.0) pg MCHC (31.0-37.0) g/dL RDW (11.5-15.5) % Plt Count (150-450) k/uL MPV Neutrophils % % Lymphocytes % % Monocytes % % Eosinophils % % Basophils % % Neutrophils # (1.3-7.7) k/uL Lymphocytes # (1.0-4.8) k/uL Monocytes # (0-1.0) k/uL Eosinophils # (0-0.7) k/uL Basophils # (0-0.2) k/uL Macrocytosis PT 11.4 (10.0-12.5) sec INR 1.1 (<1.2) APTT 23.2 (22.0-30.0) sec Sodium 139 (137-145) mmol/L Potassium 3.7 (3.5-5.1) mmol/L Chloride 110 H (98-107) mmol/L Carbon Dioxide 21 L (22-30) mmol/L Anion Gap 8 mmol/L BUN 11 (9-20) mg/dL Creatinine 1.44 H (0.66-1.25) mg/dL Est GFR (CKD-EPI)AfAm 55 (>60 ml/min/1.73 sqM) Est GFR (CKD-EPI)NonAf 47 (>60 ml/min/1.73 sqM) Glucose 113 H (74-99) mg/dL POC Glucose (mg/dL) (70-110) mg/dL POC Glu Cap Sizer ID Calcium 8.4 (8.4-10.2) mg/dL Total Bilirubin 0.7 (0.2-1.3) mg/dL AST 46 (17-59) U/L ALT 17 (4-49) U/L Alkaline Phosphatase 80 (38-126) U/L Creatine Kinase 745 H (55-170) U/L Troponin I (0.000-0.034) ng/mL Total Protein 6.1 L (6.3-8.2) g/dL Albumin 3.5 (3.5-5.0) g/dL Disposition Clinical Impression: AMS (altered mental status) Disposition: ADMITTED IP TO THIS HOSP Condition: Serious
[2023-10-10] MEDS ORDERED: HEPARIN SODIUM 1,000 UN/ML (10ML VL) IV PRN (20:06)
[2023-10-10] MEDS: LORazepam 2 MG/ML INJ IV STA (20:14)
[2023-10-10] MEDS: HEPARIN SOD,PORK IN 0.45% NACL 25,000 UNIT in 0.45% NACL 1 250ML.BAG IV SCH (20:17)
--- NOTE | 2023-10-10 21:11 | P.CRDCN ---
History of Present Illness Consult date: 10/10/23 History of present illness: This is a 73-year-old gentleman with a past medical history significant for history of smoking and chronic obstructive pulmonary disease and history of stroke and carotid atherosclerosis. I asked to see the patient for acute coronary syndrome. The patient currently is very agitated with severe change in mental status and the history was taken from the chart as well as from the patient's daughter who is a nurse and also from the ER physician. Apparently the patient was drinking alcohol with his grandson last night and that was the last time he was noted to be normal or at baseline. The patient lives independently and he was functional and able to take care of himself. His grandson came in to check on the patient today and he noticed that the patient was having change in mental status/lethargic. He was brought to the emergency department by ambulance. Workup in the emergency department was performed including CT scan of the head which revealed old left occipital infarct. He underwent carotid duplex study which revealed intermediate disease involving the right internal carotid artery. And mild disease involving the left internal carotid artery. WBC was elevated. Renal function was abnormal and he was in acute renal failure. I was informed about the patient's troponin earlier today about 12 hours after the patient presented to the emergency department. His troponin was abnormal. I ask for EKG. The EKG was faxed to me immediately and that revealed an ST segment elevation in the anteroseptal leads concerning for ST segment elevation myocardial infarction. The patient was brought to the cardiac catheterization laboratory for an emergent heart catheterization with him when he was arrived to the General Accounting Clerk he was in severe agitation and he was having significant change in mental status. Before we proceeded with a heart catheterization I did speak with his daughter who is an RN. I discussed the patient's case with the patient's daughter. I informed her that he is in severe agitation and I am concerned about also after the procedure if we place coronary stent he wants to be able to take his dual antiplatelet therapy and anti- ischemic medications giving that he cannot swallow. We also do not know if the patient will be able to swallow in the next few days. The initial plan was to proceed with intubation and placing an NG tube and doing the procedure but the patient's family including the patient's daughter decided that they do not want to intubate the patient and they went to consider only medical treatment at this point which is not unreasonable giving the situation of the patient including the change in mental status and agitation and the possible intubation and he want to be even possibly be extubated giving that he does have severe chronic obstructive pulmonary disease and significant history of smoking to before. With that being said the patient will be treated medically. Heparin will be resumed. The patient will be admitted to the intensive care unit. Service Mechanic will be consulted. Further recommendation to follow. Meanwhile obtaining an echocardiogram with Doppler. Assessment Change in mental status of unknown etiology at this point Acute coronary syndrome as described above Significant history of smoking Chronic obstructive pulmonary disease History of stroke Carotid atherosclerosis Acute renal failure Multiple comorbid conditions Plan Restart the patient back on heparin Consider medical treatment for the acute coronary syndrome at this point Rule out sepsis giving the elevated WBC Obtain an echocardiogram for risk stratification Consider starting the patient on oral antiplatelet and beta-alejandra and statin once he is able to swallow Follow-up with the patient Past Medical History Past Medical History: CVA/TIA, Hypertension Additional Past Medical History / Comment(s): vision trouble right eye History of Any Multi-Drug Resistant Organisms: None Reported Past Surgical History: Appendectomy, Cholecystectomy, Tonsillectomy Past Anesthesia/Blood Transfusion Reactions: No Reported Reaction Past Psychological History: No Psychological Hx Reported Smoking Status: Current every day smoker Past Alcohol Use History: Occasional Past Drug Use History: Marijuana Medications and Allergies Home Medications Medication Instructions Recorded Confirmed Type No Known Home Medications 10/10/23 10/10/23 History Allergies Allergy/AdvReac Type Severity Reaction Status Date / Time Penicillins Allergy Rash/Hives Verified 10/10/23 14:15 Sulfa (Sulfonamide Allergy Unknown Verified 10/10/23 14:15 Antibiotics) Physical Exam Vitals: Vital Signs Temp Pulse Resp BP Pulse Ox 10/10/23 20:20 111/83 10/10/23 20:15 107/72 10/10/23 20:00 113/75 10/10/23 19:53 102.2 F H 101 H 20 104/94 95 10/10/23 19:02 105 H 20 115/97 95 10/10/23 18:47 102.7 F H 10/10/23 18:13 100 17 133/83 95 10/10/23 17:30 110 H 18 131/86 96 10/10/23 16:05 97.9 F 95 16 141/87 95 10/10/23 15:01 98.2 F 100 30 H 140/97 99 10/10/23 14:30 106 H 20 162/95 95 10/10/23 14:15 116 H 24 157/97 97 10/10/23 14:04 107 H 28 H 130/83 97 10/10/23 13:55 113 H 36 H 143/84 95 10/10/23 13:36 98.5 F 105 H 32 H 112/98 94 L 10/10/23 13:35 31 H Intake and Output 10/10/23 10/10/23 10/10/23 06:59 14:59 22:59 Other: Weight 56.926 kg Results 10/10/23 14:38 10/10/23 15:54 Cardiac Enzymes 10/10/23 10/10/23 10/10/23 Range/Units 14:38 15:54 18:48 AST 46 (17-59) U/L Troponin I 3.190 H* 17.500 H* (0.000-0.034) ng/mL Coagulation 10/10/23 Range/Units 14:38 PT 11.4 (10.0-12.5) sec APTT 23.2 (22.0-30.0) sec CBC 10/10/23 Range/Units 14:38 WBC 17.3 H (3.8-10.6) k/uL RBC 4.32 (4.30-5.90) m/uL Hgb 14.1 (13.0-17.5) gm/dL Hct 44.2 (39.0-53.0) % Plt Count 202 (150-450) k/uL Comprehensive Metabolic Panel 10/10/23 Range/Units 15:54 Sodium 139 (137-145) mmol/L Potassium 3.7 (3.5-5.1) mmol/L Chloride 110 H (98-107) mmol/L Carbon Dioxide 21 L (22-30) mmol/L BUN 11 (9-20) mg/dL Creatinine 1.44 H (0.66-1.25) mg/dL Glucose 113 H (74-99) mg/dL Calcium 8.4 (8.4-10.2) mg/dL AST 46 (17-59) U/L ALT 17 (4-49) U/L Alkaline Phosphatase 80 (38-126) U/L Total Protein 6.1 L (6.3-8.2) g/dL Albumin 3.5 (3.5-5.0) g/dL Current Medications Generic Name Dose Route Start Last Admin Trade Name Freq PRN Reason Stop Dose Admin Heparin Sodium (Porcine) 0 unit 10/10/23 20:06 Heparin Sodium 1,000 Un/Ml (10ml Vl) IV PER PROTOCOL PRN Low PTT Protocol Heparin Sodium/Sodium Chloride 250 mls @ 6.831 mls/hr 10/10/23 20:15 10/10/23 20:17 25,000 unit/ Sodium Chloride IV 12 units/kg/hr .Q24H MANISH 6.831 mls/hr Administration Protocol 12 UNITS/KG/HR Vancomycin HCl 1,000 mg/ 250 mls @ 125 mls/hr 10/11/23 12:00 Sodium Chloride IVPB Q24H MANISH Levetiracetam 750 mg 10/10/23 21:00 Levetiracetam Iv 500 Mg/5 Ml Vial IVP Q12HR MANISH Intake and Output 10/10/23 10/10/23 10/10/23 06:59 14:59 22:59 Other: Weight 56.926 kg Patient Weight 10/11/23 06:59 Weight 56.926 kg 10/10/23 14:38 10/10/23 15:54
[2023-10-10 21:19] LABS: Glucose,Whole Blood 129 mg/dL (70-110)
[2023-10-10] MEDS: MORPHINE SULFATE 2 MG/ML SYRINGE IVP STA (22:52)
[2023-10-11] MEDS: IPRATROPIUM-ALBUTEROL 3 ML NEB INHALATION SCH (00:30)
--- NOTE | 2023-10-11 00:36 | P.PCN ---
Date of Procedure: 10/11/23 Preoperative Diagnosis: Altered mental status; sepsis Postoperative Diagnosis: Altered mental status; sepsis Procedure(s) Performed: Insertion of a left wrist radial arterial line Indications for Procedure: Continuous blood pressure management and frequent blood draws Description of Procedure: Informed consent was obtained, and a procedural timeout was performed . The patient was placed in supine position. The left radial region was prepared in a sterile fashion, and a sterile drape was applied. The left radial artery was palpated, easily cannulated, and a guidewire was placed. A Cook catheter was inserted over the guidewire, and the guidewire was removed. There was good arterial blood flow, good arterial waveform, and no complications. The line was secured with using a 3-0 silk suture.
[2023-10-11] MEDS: SODIUM CHLORIDE 0.9% 1,000 ML IV ONE ×2 (00:45→01:50)
[2023-10-11 00:46] LABS: ABG Base Excess -7.6 mmol/L; ABG HCO3 19 mmol/L (21-25); ABG Oxygen Saturation 99.8 % (94-97); ABG PCO2 41 mmHg (35-45); ABG PH 7.28 (7.35-7.45); ABG PO2 212 mmHg (83-108); ABG TCO2 21 mmol/L (19-24); Allen Test Performed? Yes
--- NOTE | 2023-10-11 01:04 | XR ---
EXAM: XR Chest, 1 View CLINICAL HISTORY: ITS.REASON XR Reason: endotracheal intubation TECHNIQUE: Frontal view of the chest. COMPARISON: XR Chest dated 10/10/23 at 1525 FINDINGS: Lungs: New patchy opacification/airspace disease throughout most of the right lung. Pleural space: Unremarkable. No pneumothorax. No large pleural effusion. Costophrenic angles not fully included on this image. Heart: Unremarkable. No cardiomegaly. Mediastinum: Unremarkable. Normal mediastinal contour. Bones/joints: Unremarkable. No acute fracture. Tubes, lines and devices: New endotracheal tube with the tip 4.3 cm above the leonel. New enteric tube below the left hemidiaphragm, tip off the edge of image. IMPRESSION: 1. New endotracheal tube with the tip 4.3 cm above the leonel. 2. New enteric tube below the left hemidiaphragm, tip off the edge of image. 3. New patchy opacification/airspace disease throughout most of the right lung. Consider aspiration or asymmetric edema.
[2023-10-11] MEDS: levETIRAcetam IV 500 MG/5 ML VIAL IVP SCH (01:13)
[2023-10-11] MEDS: ACYCLOVIR SODIUM 500 MG in SODIUM CHLORIDE 0.9% 100 ML IVPB SCH (01:33)
[2023-10-11 01:40] LABS: Basophils % (A) 0 %; Eosinophils % (A) 0 %; HCT 37.1 % (39.0-53.0); Lymphocytes # (A) 0.6 k/uL (1.0-4.8); Lymphocytes % (A) 5 %; MCH 33.3 pg (25.0-35.0); MCHC 32.3 g/dL (31.0-37.0); MCV 102.9 fL (80.0-100.0); Macrocytosis Slight; Mean Platelet Volume 8.7; Monocytes # (A) 0.5 k/uL (0-1.0); Monocytes % (A) 4 %; Neutrophils # (A) 12.2 k/uL (1.3-7.7); Neutrophils % (A) 91 %; Platelet Count 140 k/uL (150-450); RBC 3.61 m/uL (4.30-5.90); RDW 14.4 % (11.5-15.5); WBC 13.4 k/uL (3.8-10.6)
[2023-10-11] MEDS: propofoL 100 ML IV ONE (01:45)
[2023-10-11 02:07] LABS: African American GFR (CKD) 59 (>60 ml/min/1.73 sqM); Alcohol <10 mg/dL; Anion Gap 6 mmol/L; Blood Urea Nitrogen 18 mg/dL (9-20); Calcium 7.3 mg/dL (8.4-10.2); Carbon Dioxide 17 mmol/L (22-30); Chloride 115 mmol/L (98-107); Glucose 133 mg/dL (74-99); Magnesium 1.9 mg/dL (1.6-2.3); Non-African American GFR(CKD) 51 (>60 ml/min/1.73 sqM); Potassium 3.4 mmol/L (3.5-5.1); Sodium 138 mmol/L (137-145)
[2023-10-11] MEDS ORDERED: Potassium Replacement Protocol 1 EACH MISC MISCELLANE PRN (02:22)
--- NOTE | 2023-10-11 03:04 | P.CNPUL ---
History of Present Illness Consult date: 10/11/23 Requesting physician: Nghia Castillo Reason for consult: other Chief complaint: Altered mental status, fever, seizure History of present illness: Patient is a 73-year-old white male with past medical history significant for hypertension, prior CVA/TIA, chronic ongoing tobacco dependence, carotid artery disease with previous stenting, alcohol abuse. Patient was brought into the emergency department yesterday afternoon by EMS. Patient was drinking alcohol with his grandson the night prior. He drinks approximately 3-4 rum and Cokes 2- 3 times per week. He was last seen well around 12 AM in the morning. The grandson went back to the patient's house the next day around noon and found him laying on the ground, nonverbal, and minimally responsive. EMS was alerted. In route to the emergency department, the patient reportedly had a seizure. He was given 5 mg of Versed. Code stroke was activated. Brain CT done on arrival did not show any acute intracranial process. It did show an old left occipital infarct and chronic appearing periventricular white matter ischemic changes with atrophy. Brain CTA showed moderate stenosis between 50 to 69% of the right ICA. There was mild narrowing of less than 50% of the left ICA. Displacement of left posterior cerebral vasculature. The neuro interventionalists reportedly did not recommend thrombolytics or mechanical thrombectomy. While in the emergency room, the patient was noted to have elevated troponins, of 3.19 and 17.[address] elevation in the anterior lateral leads. Patient was prepped for [facility] emergently. There was recommendation by the business rules analyst for intubation to protect patient's airway while in the [facility]. Family declined this intervention, and elected to proceed with medical management. Patient was then transferred to the intensive care unit in critical condition. On my evaluation, the patient is flailing around in bed, nonpurposeful movements, he does appear to withdraw to pain in all 4 extremities. Does not follow commands or track. No further seizure-like activity reported by the nurses. The patient was loaded with Keppra in the emergency room. No history of seizure disorder per daughter. Patient was also febrile on arrival, with a Tmax of 102.7 F. I was concerned about the patient's ability to protect his airway. I did have a thorough conversation with patient's family that are at bedside. The patient's daughter, had talked to her sister, and they changed their mind about intubation. They want the patient to be a full code. I recommended prophylactic intubation for airway protection, and the patient's family are agreeable to this intervention. Rapid sequence intubation was performed by BANQUET COOK. Postintubation chest x-ray showed endotracheal tube with tip 4.3 cm above the leonel. New orogastric tube coursing below the left hemidiaphragm. There was a extensive new patchy opacification throughout the right lung, likely component of aspiration. Patient is intubated to mechanical ventilator with current ventilator settings of assist-control, respiratory rate 18, tidal volume 400, FiO2 100%, and PEEP of 5. Patient is sedated on propofol which is infusing at 40 mcg/min. He is synchronous on mechanical ventilator. Blood pressure is hypotensive, he has been given 1 L normal saline bolus. Heart rhythm appears normal sinus on bedside monitor. He remains febrile. Heparin is infusing per protocol. Repeat CBC done early this morning as a WBC count of 13.4, hemoglobin 12, hematocrit 37, platelets 140. Follow-up BMP was a sodium 138, potassium 3.4, chloride 115, serum bicarb 17, BUN 18, creatinine 1.35, glucose 133. Serum alcohol level less than 10. Patient's condition is currently critical. He is being monitored in the intensive care unit. Review of Systems ROS unobtainable: due to mental status Past Medical History Past Medical History: COPD, CVA/TIA, Hypertension Additional Past Medical History / Comment(s): vision trouble right eye History of Any Multi-Drug Resistant Organisms: None Reported Past Surgical History: Appendectomy, Cholecystectomy, Tonsillectomy Additional Past Surgical History / Comment(s): Left carotid stent 2012 Past Anesthesia/Blood Transfusion Reactions: No Reported Reaction Past Psychological History: No Psychological Hx Reported Smoking Status: Current every day smoker Past Alcohol Use History: Occasional Past Drug Use History: Marijuana Medications and Allergies Home Medications Medication Instructions Recorded Confirmed Type No Known Home Medications 10/10/23 10/10/23 History Allergies Allergy/AdvReac Type Severity Reaction Status Date / Time Penicillins Allergy Rash/Hives Verified 10/10/23 14:15 Sulfa (Sulfonamide Allergy Unknown Verified 10/10/23 14:15 Antibiotics) Physical Exam Vitals: Vital Signs Temp Pulse Resp BP Pulse Ox FiO2 10/11/23 01:01 60 10/11/23 00:44 84 04/17/24 00:30 88 17 82/58 100 10/11/23 00:20 85 22 135/90 98 10/11/23 00:12 100 10/11/23 00:10 103 H 18 135/90 95 10/11/23 00:00 92 53 H 183/169 93 L 10/10/23 23:59 100 10/10/23 23:50 92 20 92 L 10/10/23 23:40 95 15 93 L 10/10/23 23:30 112 H 17 93 L 10/10/23 23:20 102 H 25 H 92 L 10/10/23 23:10 92 17 134/113 93 L 10/10/23 23:00 97 22 101/61 93 L 10/10/23 22:50 135 H 21 93 L 10/10/23 22:40 107 H 23 93 L 10/10/23 22:30 114 H 38 H 108/64 93 L 10/10/23 22:20 109 H 52 H 108/64 93 L 10/10/23 22:10 103 H 26 H 108/64 92 L 10/10/23 22:00 109 H 18 89/54 92 L 10/10/23 21:50 96 16 94 L 10/10/23 21:40 103 H 18 93 L 10/10/23 21:30 100.8 F H 96 18 94 L 10/10/23 21:27 100.8 F H 18 10/10/23 21:20 112 H 18 108/82 93 L 10/10/23 21:18 98 16 93 L 10/10/23 20:20 111/83 10/10/23 20:15 107/72 10/10/23 20:00 113/75 10/10/23 19:53 102.2 F H 101 H 20 104/94 95 10/10/23 19:02 105 H 20 115/97 95 10/10/23 18:47 102.7 F H 10/10/23 18:13 100 17 133/83 95 10/10/23 17:30 110 H 18 131/86 96 10/10/23 16:05 97.9 F 95 16 141/87 95 10/10/23 15:01 98.2 F 100 30 H 140/97 99 10/10/23 14:30 106 H 20 162/95 95 10/10/23 14:15 116 H 24 157/97 97 10/10/23 14:04 107 H 28 H 130/83 97 10/10/23 13:55 113 H 36 H 143/84 95 10/10/23 13:36 98.5 F 105 H 32 H 112/98 94 L 10/10/23 13:35 31 H Intake and Output 10/10/23 10/10/23 10/11/23 14:59 22:59 06:59 Intake Total 10.474 Output Total 0 15 Balance 10.474 -15 Intake: Intake, IV Titration 10.474 Amount Heparin Sod,Pork in 0.45% 10.474 NaCl 25,000 unit In 0.45 % NaCl 1 250ml.bag @ 12 UNITS/KG/HR 6.831 mls/hr IV .Q24H [facility] Rx#: [id number] Output: Urine 0 15 Other: Voiding Method Incontinent Weight 56.926 kg 56.926 kg ABP, PAP, CO, CI - Last 8 Hours Arterial Blood Pressure 76/53 GENERAL EXAM: Restless/flailing around in bed, no purposeful movements, does not follow commands. HEAD: Normocephalic, right eye edema and ecchymosis EYES: Normal reaction of pupils, equal size. NOSE: Clear with pink turbinates. THROAT: No erythema or exudates. NECK: No masses, no JVD. CHEST: No chest wall deformity. LUNGS: Equal air entry with coarse rhonchi, mostly within the right lung becerra. Congested cough. Currently on 2 L/min nasal cannula. CVS: S1 and S2 normal with no audible murmur, regular rhythm. No extra heart sounds ABDOMEN: No hepatosplenomegaly, active bowel sounds, no guarding or rigidity. SPINE: No scoliosis or deformity SKIN: Left knee abrasion CENTRAL NERVOUS SYSTEM: Patient appears to be moving all 4 extremities. Movements are overall nonpurposeful. Does not follow commands. Does not cooperate with neuroexam. No tremors or seizure-like activity noted. EXTREMITIES: There is no peripheral edema, clubbing, or cyanosis. Peripheral pulses are intact. Results - Laboratory Findings CBC and BMP: 10/11/23 01:24 10/11/23 01:24 ABG ABG pH 7.28 (7.35-7.45) L 10/11/23 00:31 ABG pCO2 41 mmHg (35-45) 10/11/23 00:31 ABG pO2 212 mmHg (83-108) H 10/11/23 00:31 ABG O2 Saturation 99.8 % (94-97) H 10/11/23 00:31 PT/INR, D-dimer PT 11.4 sec (10.0-12.5) 10/10/23 14:38 INR 1.1 (<1.2) 10/10/23 14:38 Abnormal lab findings: Abnormal Labs 10/10/23 10/10/23 10/10/23 13:58 14:38 14:38 WBC 17.3 H MCV 102.3 H Neutrophils # 15.3 H Lymphocytes # 0.9 L ABG pH ABG pO2 ABG HCO3 ABG O2 Saturation Chloride Carbon Dioxide Creatinine Glucose POC Glucose (mg/dL) 231 H Creatine Kinase Troponin I 3.190 H* Total Protein 10/10/23 10/10/23 10/10/23 15:54 18:48 21:18 WBC MCV Neutrophils # Lymphocytes # ABG pH ABG pO2 ABG HCO3 ABG O2 Saturation Chloride 110 H Carbon Dioxide 21 L Creatinine 1.44 H Glucose 113 H POC Glucose (mg/dL) 129 H Creatine Kinase 745 H Troponin I 17.500 H* Total Protein 6.1 L 10/11/23 00:31 WBC MCV Neutrophils # Lymphocytes # ABG pH 7.28 L ABG pO2 212 H ABG HCO3 19 L ABG O2 Saturation 99.8 H Chloride Carbon Dioxide Creatinine Glucose POC Glucose (mg/dL) Creatine Kinase Troponin I Total Protein - Diagnostic Findings Chest x-ray: image reviewed Assessment and Plan Assessment: Acute coronary syndrome, was evaluated by cardiology, decision was made for medical management. Currently on a heparin infusion per protocol. Acute hypoxemic respiratory failure, intubated on the mechanical ventilator, postintubation follow-up chest x-ray shows a new extensive patchy right-sided infiltrate throughout most of the right lung. Suspect aspiration pneumonia. Altered mental status, initially found on the ground and minimally responsive at home, under evaluation. Patient was worked up for code stroke in the emergency room. Brain CT done on arrival did not show any acute intracranial process. It did show an old left occipital infarct and chronic appearing periventricular white matter ischemic changes with atrophy. Brain CTA showed moderate stenosis between 50 to 69% of the right ICA. There was mild narrowing of less than 50% of the left ICA. Displacement of left posterior cerebral vasculature. The neur o-interventionalists reportedly did not recommend thrombolytics or mechanical thrombectomy. New onset seizures, patient was loaded with Keppra in the emergency room, no further seizure activity reported Acute febrile illness/sepsis Hypotension, patient has been aggressively fluid resuscitated with a total of 3 L normal saline, may require vasopressor support Acute non-anion gap metabolic acidosis Acute kidney injury, likely secondary to above and ATN Bilateral carotid artery stenosis, as reported above History of CVA/TIA History of hypertension Chronic ongoing tobacco dependence History of alcohol abuse Plan: Patient was sent to the intensive care unit after evaluation by cardiology. Initially, the patient's family had refused intubation and surgical intervention by cardiology. Patient is being medically managed at this time by cardiology. Currently, on heparin infusion per protocol. Follow-up transthoracic echocardiogram pending. After prolonged discussion with family. The patient's daughter has spoken to her sister, and now want everything done at this point. They want the patient to be a full code. They want the patient to be intubated, which was done by the BANQUET COOK. Patient will remain on the mechanical ventilator with current ventilator settings. Wean FiO2 as tolerated. Follow-up ABG noted. Propofol for sedation. Ventilator bundle added. May start norepinephrine, if needed, for refractory hypotension Patient was started on empiric antibiotics for possible encephalitis/meningitis. Patient was placed on a combination of Rocephin, vancomycin, and acyclovir. Patient does have allergies to penicillins and sulfa antibiotics. Infectious disease consult placed. Additional workup will be needed. No further seizures reported. Patient was loaded with Keppra per neurology recommendation. EEG ordered. Check urine drug screen. Check urinalysis. Check creatinine kinase. Blood and sputum cultures pending. Protonix for GI prophylaxis. Patient's condition is currently critical, and the patient is being monitored in the intensive care unit. My supervising physician has been updated on the case. Further recommendations are forthcoming. I have personally seen and examined the patient, performed the documentation and the assessment and plan as written. Number of minutes spent on the visit:20 Time with Patient: Greater than 30
[2023-10-11] MEDS: POTASSIUM BICARBONATE/CIT AC 20 MEQ TABLET.EFF NG-TUBE SCH ×2 (03:19→09:29)
[2023-10-11] MEDS: SODIUM CHLORIDE 0.9% 1,000 ML IV SCH (03:19)
[2023-10-11 04:36] LABS: Appearance,Urine Cloudy (Clear); Bacteria,Urine Moderate /hpf; Bilirubin,Urine Negative (Negative); Blood,Urine Large (Negative); Color,Urine Red; Glucose,Urine (UA) Negative (Negative); Hyaline Casts,Urine 24 /lpf (0-2); Ketones,Urine Trace (Negative); Leukocyte Esterase,Urine Moderate (Negative); Nitrite,Urine Negative (Negative); PH, Urine 5.5 (5.0-8.0); Protein,Urine 1+ (Negative); RBC,Urine >182 /hpf (0-5); Urobilinogen,Urine <2.0 mg/dL (<2.0); WBC,Urine 99 /hpf (0-5)
[2023-10-11 04:43] LABS: Amphetamine Screen,Urine Not Detected (NotDetected); Barbiturate Screen,Urine Not Detected (NotDetected); Benzodiazepines Screen,Urine Detected (NotDetected); Cocaine Screen,Urine Not Detected (NotDetected); Methadone Screen, Urine Not Detected (NotDetected); Opiate Screen,Urine Detected (NotDetected); Oxycodone Screen, Urine Not Detected (NotDetected); Phencyclidine Screen,Urine Not Detected (NotDetected); Tricyclic Antidepressant,Urine Not Detected (NotDetected); Urn Cannabinoid Scrn Detected (NotDetected)
[2023-10-11] MEDS: NOREPINEPHRINE 4 MG in SODIUM CHLORIDE 0.9% 250 ML IV SCH (04:46)
[2023-10-11 06:00] LABS: ABG HCO3 19 mmol/L (21-25); ABG Oxygen Saturation 99.6 % (94-97); ABG PCO2 38 mmHg (35-45); ABG PH 7.29 (7.35-7.45); ABG PO2 173 mmHg (83-108); ABG TCO2 20 mmol/L (19-24); Allen Test Performed? Yes
[2023-10-11] MEDS ORDERED: Magnesium Replacement Protocol 1 EACH MISC MISCELLANE PRN (06:45)
[2023-10-11] MEDS: VASOPRESSIN 60 UNIT in SODIUM CHLORIDE 0.9% 150 ML IV SCH (06:50)
[2023-10-11 06:55] LABS: African American GFR (CKD) 59 (>60 ml/min/1.73 sqM); Anion Gap 9 mmol/L; Blood Urea Nitrogen 18 mg/dL (9-20); Calcium 7.4 mg/dL (8.4-10.2); Carbon Dioxide 17 mmol/L (22-30); Chloride 114 mmol/L (98-107); Glucose 155 mg/dL (74-99); Non-African American GFR(CKD) 51 (>60 ml/min/1.73 sqM); Potassium 3.8 mmol/L (3.5-5.1); Sodium 140 mmol/L (137-145)
--- NOTE | 2023-10-11 07:25 | P.PN ---
Subjective Progress Note Date: 10/11/23 Principal diagnosis: Acute coronary syndrome This is a 73-year-old gentleman with a past medical history significant for history of smoking and chronic obstructive pulmonary disease and history of stroke and carotid atherosclerosis. I asked to see the patient for acute coronary syndrome. The patient currently is very agitated with severe change in mental status and the history was taken from the chart as well as from the patient's daughter who is a nurse and also from the ER physician. Apparently the patient was drinking alcohol with his grandson last night and that was the last time he was noted to be normal or at baseline. The patient lives independently and he was functional and able to take care of himself. His grandson came in to check on the patient today and he noticed that the patient was having change in mental status/lethargic. He was brought to the emergency department by ambulance. Workup in the emergency department was performed including CT scan of the head which revealed old left occipital infarct. He underwent carotid duplex study which revealed intermediate disease involving the right internal carotid artery. And mild disease involving the left internal carotid artery. WBC was elevated. Renal function was abnormal and he was in acute renal failure. I was informed about the patient's troponin earlier today about 12 hours after the patient presented to the emergency department. His troponin was abnormal. I ask for EKG. The EKG was faxed to me immediately and that revealed an ST segment elevation in the anteroseptal leads concerning for ST segment elevation myocardial infarction. The patient was brought to the cardiac catheterization laboratory for an emergent heart catheterization with him when he was arrived to the [facility] he was in severe agitation and he was having significant change in mental status. Before we proceeded with a heart catheterization I did speak with his daughter who is an RN. I discussed the patient's case with the patient's daughter. I informed her that he is in severe agitation and I am concerned about also after the procedure if we place coronary stent he wants to be able to take his dual antiplatelet therapy and anti- ischemic medications giving that he cannot swallow. We also do not know if the patient will be able to swallow in the next few days. The initial plan was to proceed with intubation and placing an NG tube and doing the procedure but the patient's family including the patient's daughter decided that they do not want to intubate the patient and they went to consider only medical treatment at this point which is not unreasonable giving the situation of the patient including the change in mental status and agitation and the possible intubation and he want to be even possibly be extubated giving that he does have severe chronic obstructive pulmonary disease and significant history of smoking to before. With that being said the patient will be treated medically. Heparin will be resumed. The patient will be admitted to the intensive care unit. Director Of Placement will be consulted. Further recommendation to follow. Meanwhile obtaining an echocardiogram with Doppler. October 11, 2023 The patient was seen and evaluated this morning. Last night he was intubated and currently he is on mechanical ventilation. Apparently he was also hypotensive and currently he is requiring vasopressors and norepinephrine to support his blood pressure. He is in sinus rhythm with a sinus bradycardia. He did have an episode of junctional rhythm yesterday. The chest x-ray showed possible infiltrate likely secondary to aspiration pneumonia. Blood culture was drawn. An echo is still pending. NG tube is in place. The examination revealed an intubated patient with regular rate and rhythm and systolic murmur and diminished breathing sounds bilaterally and no edema was noted. Assessment Change in mental status of unknown etiology at this point Acute coronary syndrome as described above Significant history of smoking Chronic obstructive pulmonary disease History of stroke Carotid atherosclerosis Acute renal failure Possible sepsis/pneumonia Acute hypoxic respiratory Plan Restart the patient back on heparin Consider medical treatment for the acute coronary syndrome at this point Aspirin to the current medical regimen Add Lipitor to the current medical regimen Continue heparin for additional 24 hours and total of 48 hours Monitor the kidney function and electrolytes The sepsis/pneumonia to be managed by the critical care team Follow-up on the echocardiogram Follow-up on serial cardiac enzyme Objective - Vital Signs Vital signs: Vital Signs Temp 98.6 F 10/11/23 04:00 Pulse 52 L 10/11/23 06:30 Resp 18 10/11/23 06:30 BP 81/49 10/11/23 06:30 Pulse Ox 100 10/11/23 06:30 FiO2 50 10/11/23 05:00 Intake & Output 10/10/23 10/11/23 10/11/23 18:59 06:59 18:59 Intake Total 2598.474 Output Total 110 Balance 2488.474 Weight 56.926 kg 59 kg Intake: IV 2438 0.9 NS KVO 120 Pressure Bag 18 Sodium Chloride 0.9% 1, 300 000 ml @ 125 mls/hr IV . Q8H [facility] Rx#:[id number] Sodium Chloride 0.9% 1, 1000 000 ml @ 999 mls/hr IV . Q1H1M ONE Rx#:[id number] Sodium Chloride 0.9% 1, 1000 000 ml @ 999 mls/hr IV . Q1H1M STA Rx#:[id number] Intake, IV Titration 160.474 Amount Acyclovir Sodium 500 mg 100 In Sodium Chloride 0.9% 100 ml @ 100 mls/hr IVPB Q8HR [facility] Rx#:[id number] Heparin Sod,Pork in 0.45% 10.474 NaCl 25,000 unit In 0.45 % NaCl 1 250ml.bag @ 12 UNITS/KG/HR 6.831 mls/hr IV .Q24H [facility] Rx#: [id number] cefTRIAXone 2 gm In 50 Sodium Chloride 0.9% 50 ml @ 100 mls/hr IVPB Q12H [facility] Rx#:[id number] Output: Urine 110 Other: Voiding Method Indwelling Catheter ABP, PAP, CO, CI - Last Documented Arterial Blood Pressure 102/44 - Labs CBC & Chem 7: 10/11/23 01:24 10/11/23 06:20 Labs: Abnormal Lab Results - Last 24 Hours (Table) 10/10/23 10/10/23 10/10/23 Range/Units 13:58 14:38 14:38 WBC 17.3 H (3.8-10.6) k/uL RBC (4.30-5.90) m/uL Hgb (13.0-17.5) gm/dL Hct (39.0-53.0) % MCV 102.3 H (80.0-100.0) fL Plt Count (150-450) k/uL Neutrophils # 15.3 H (1.3-7.7) k/uL Lymphocytes # 0.9 L (1.0-4.8) k/uL APTT (22.0-30.0) sec D-Dimer (<0.60) mg/L FEU ABG pH (7.35-7.45) ABG pO2 (83-108) mmHg ABG HCO3 (21-25) mmol/L ABG O2 Saturation (94-97) % Potassium (3.5-5.1) mmol/L Chloride (98-107) mmol/L Carbon Dioxide (22-30) mmol/L Creatinine (0.66-1.25) mg/dL Glucose (74-99) mg/dL POC Glucose (mg/dL) 231 H (70-110) mg/dL Calcium (8.4-10.2) mg/dL Creatine Kinase (55-170) U/L Troponin I 3.190 H* (0.000-0.034) ng/mL Total Protein (6.3-8.2) g/dL Urine Protein (Negative) Urine Ketones (Negative) Urine Blood (Negative) Ur Leukocyte Esterase (Negative) Urine RBC (0-5) /hpf Urine WBC (0-5) /hpf Urine WBC Clumps (None) /hpf Urine Bacteria (None) /hpf Hyaline Casts (0-2) /lpf Urine Opiates Screen (NotDetected) U Benzodiazepines Scrn (NotDetected) U Marijuana (THC) Screen (NotDetected) 10/10/23 10/10/23 10/10/23 Range/Units 15:54 18:48 21:18 WBC (3.8-10.6) k/uL RBC (4.30-5.90) m/uL Hgb (13.0-17.5) gm/dL Hct (39.0-53.0) % MCV (80.0-100.0) fL Plt Count (150-450) k/uL Neutrophils # (1.3-7.7) k/uL Lymphocytes # (1.0-4.8) k/uL APTT (22.0-30.0) sec D-Dimer (<0.60) mg/L FEU ABG pH (7.35-7.45) ABG pO2 (83-108) mmHg ABG HCO3 (21-25) mmol/L ABG O2 Saturation (94-97) % Potassium (3.5-5.1) mmol/L Chloride 110 H (98-107) mmol/L Carbon Dioxide 21 L (22-30) mmol/L Creatinine 1.44 H (0.66-1.25) mg/dL Glucose 113 H (74-99) mg/dL POC Glucose (mg/dL) 129 H (70-110) mg/dL Calcium (8.4-10.2) mg/dL Creatine Kinase 745 H (55-170) U/L Troponin I 17.500 H* (0.000-0.034) ng/mL Total Protein 6.1 L (6.3-8.2) g/dL Urine Protein (Negative) Urine Ketones (Negative) Urine Blood (Negative) Ur Leukocyte Esterase (Negative) Urine RBC (0-5) /hpf Urine WBC (0-5) /hpf Urine WBC Clumps (None) /hpf Urine Bacteria (None) /hpf Hyaline Casts (0-2) /lpf Urine Opiates Screen (NotDetected) U Benzodiazepines Scrn (NotDetected) U Marijuana (THC) Screen (NotDetected) 10/11/23 10/11/23 10/11/23 Range/Units 00:31 01:24 01:24 WBC (3.8-10.6) k/uL RBC (4.30-5.90) m/uL Hgb (13.0-17.5) gm/dL Hct (39.0-53.0) % MCV (80.0-100.0) fL Plt Count (150-450) k/uL Neutrophils # (1.3-7.7) k/uL Lymphocytes # (1.0-4.8) k/uL APTT (22.0-30.0) sec D-Dimer 8.22 H (<0.60) mg/L FEU ABG pH 7.28 L (7.35-7.45) ABG pO2 212 H (83-108) mmHg ABG HCO3 19 L (21-25) mmol/L ABG O2 Saturation 99.8 H (94-97) % Potassium (3.5-5.1) mmol/L Chloride (98-107) mmol/L Carbon Dioxide (22-30) mmol/L Creatinine (0.66-1.25) mg/dL Glucose (74-99) mg/dL POC Glucose (mg/dL) (70-110) mg/dL Calcium (8.4-10.2) mg/dL Creatine Kinase (55-170) U/L Troponin I 33.600 H* (0.000-0.034) ng/mL Total Protein (6.3-8.2) g/dL Urine Protein (Negative) Urine Ketones (Negative) Urine Blood (Negative) Ur Leukocyte Esterase (Negative) Urine RBC (0-5) /hpf Urine WBC (0-5) /hpf Urine WBC Clumps (None) /hpf Urine Bacteria (None) /hpf Hyaline Casts (0-2) /lpf Urine Opiates Screen (NotDetected) U Benzodiazepines Scrn (NotDetected) U Marijuana (THC) Screen (NotDetected) 10/11/23 10/11/23 10/11/23 Range/Units 01:24 01:24 02:31 WBC 13.4 H (3.8-10.6) k/uL RBC 3.61 L (4.30-5.90) m/uL Hgb 12.0 L (13.0-17.5) gm/dL Hct 37.1 L (39.0-53.0) % MCV 102.9 H (80.0-100.0) fL Plt Count 140 L (150-450) k/uL Neutrophils # 12.2 H (1.3-7.7) k/uL Lymphocytes # 0.6 L (1.0-4.8) k/uL APTT (22.0-30.0) sec D-Dimer (<0.60) mg/L FEU ABG pH (7.35-7.45) ABG pO2 (83-108) mmHg ABG HCO3 (21-25) mmol/L ABG O2 Saturation (94-97) % Potassium 3.4 L (3.5-5.1) mmol/L Chloride 115 H (98-107) mmol/L Carbon Dioxide 17 L (22-30) mmol/L Creatinine 1.35 H (0.66-1.25) mg/dL Glucose 133 H (74-99) mg/dL POC Glucose (mg/dL) (70-110) mg/dL Calcium 7.3 L (8.4-10.2) mg/dL Creatine Kinase 4292 H* (55-170) U/L Troponin I (0.000-0.034) ng/mL Total Protein (6.3-8.2) g/dL Urine Protein (Negative) Urine Ketones (Negative) Urine Blood (Negative) Ur Leukocyte Esterase (Negative) Urine RBC (0-5) /hpf Urine WBC (0-5) /hpf Urine WBC Clumps (None) /hpf Urine Bacteria (None) /hpf Hyaline Casts (0-2) /lpf Urine Opiates Screen (NotDetected) U Benzodiazepines Scrn (NotDetected) U Marijuana (THC) Screen (NotDetected) 10/11/23 10/11/23 10/11/23 Range/Units 03:35 03:35 04:00 WBC (3.8-10.6) k/uL RBC (4.30-5.90) m/uL Hgb (13.0-17.5) gm/dL Hct (39.0-53.0) % MCV (80.0-100.0) fL Plt Count (150-450) k/uL Neutrophils # (1.3-7.7) k/uL Lymphocytes # (1.0-4.8) k/uL APTT 66.8 H (22.0-30.0) sec D-Dimer (<0.60) mg/L FEU ABG pH (7.35-7.45) ABG pO2 (83-108) mmHg ABG HCO3 (21-25) mmol/L ABG O2 Saturation (94-97) % Potassium (3.5-5.1) mmol/L Chloride (98-107) mmol/L Carbon Dioxide (22-30) mmol/L Creatinine (0.66-1.25) mg/dL Glucose (74-99) mg/dL POC Glucose (mg/dL) (70-110) mg/dL Calcium (8.4-10.2) mg/dL Creatine Kinase (55-170) U/L Troponin I (0.000-0.034) ng/mL Total Protein (6.3-8.2) g/dL Urine Protein 1+ H (Negative) Urine Ketones Trace H (Negative) Urine Blood Large H (Negative) Ur Leukocyte Esterase Moderate H (Negative) Urine RBC >182 H (0-5) /hpf Urine WBC 99 H (0-5) /hpf Urine WBC Clumps Moderate H (None) /hpf Urine Bacteria Moderate H (None) /hpf Hyaline Casts 24 H (0-2) /lpf Urine Opiates Screen Detected H (NotDetected) U Benzodiazepines Scrn Detected H (NotDetected) U Marijuana (THC) Screen Detected H (NotDetected) 10/11/23 10/11/23 Range/Units 05:48 06:20 WBC (3.8-10.6) k/uL RBC (4.30-5.90) m/uL Hgb (13.0-17.5) gm/dL Hct (39.0-53.0) % MCV (80.0-100.0) fL Plt Count (150-450) k/uL Neutrophils # (1.3-7.7) k/uL Lymphocytes # (1.0-4.8) k/uL APTT (22.0-30.0) sec D-Dimer (<0.60) mg/L FEU ABG pH 7.29 L (7.35-7.45) ABG pO2 173 H (83-108) mmHg ABG HCO3 19 L (21-25) mmol/L ABG O2 Saturation 99.6 H (94-97) % Potassium (3.5-5.1) mmol/L Chloride 114 H (98-107) mmol/L Carbon Dioxide 17 L (22-30) mmol/L Creatinine 1.35 H (0.66-1.25) mg/dL Glucose 155 H (74-99) mg/dL POC Glucose (mg/dL) (70-110) mg/dL Calcium 7.4 L (8.4-10.2) mg/dL Creatine Kinase (55-170) U/L Troponin I (0.000-0.034) ng/mL Total Protein (6.3-8.2) g/dL Urine Protein (Negative) Urine Ketones (Negative) Urine Blood (Negative) Ur Leukocyte Esterase (Negative) Urine RBC (0-5) /hpf Urine WBC (0-5) /hpf Urine WBC Clumps (None) /hpf Urine Bacteria (None) /hpf Hyaline Casts (0-2) /lpf Urine Opiates Screen (NotDetected) U Benzodiazepines Scrn (NotDetected) U Marijuana (THC) Screen (NotDetected)
--- NOTE | 2023-10-11 08:14 | XR ---
EXAMINATION TYPE: XR chest 1V portable DATE OF EXAM: 10/11/2023 4:54 AM CLINICAL INDICATION:Male, 73 years old with history of Tube placement; [facility] COMPARISON: Chest radiographs from 10/11/2023 TECHNIQUE: XR chest 1V portable Frontal view of the chest. FINDINGS: Lungs/Pleura: Increased airspace opacities in the right midlung which are new from 10/10/2023. Pulmona ry vascularity: Unremarkable. Heart/mediastinum: Cardiomediastinal silhouette is unremarkable. Musculoskeletal: No acute osseous pathology. Endotracheal tube distal tip approximately 5.6 cm above the leonel. Nasogastric tube terminating below the diaphragm. IMPRESSION: 1. Support tubes in appropriate position. 2. Increased right lung airspace opacities new from 10/10/2023. Correlate for pulmonary edema. Correl ate for pneumonia.
[2023-10-11] MEDS: BUDESONIDE 0.5 MG/2 ML NEBU INHALATION SCH (08:29)
[2023-10-11] MEDS: MAGNESIUM SULFATE-D5W PMX 1 GM in DEXTROSE/WATER 1 100ML.BAG IVPB ONE (09:28)
[2023-10-11] MEDS: CHLORHEXIDINE GLUCONATE 15 ML CUP MUCOUS MEM SCH (09:29)
[2023-10-11] MEDS: PANTOPRAZOLE 40 MG/10 ML VIAL IV SCH (09:29)
[2023-10-11] MEDS ORDERED: MORPHINE SULFATE 2 MG/ML SYRINGE IV PRN (09:29)
[2023-10-11] MEDS ORDERED: ONDANSETRON 4 MG/2 ML VIAL IVP PRN (09:29)
[2023-10-11] MEDS: ATORVASTATIN 40 MG TAB PO SCH (09:29)
[2023-10-11] MEDS: ASPIRIN 81 MG PO SCH (09:29)
--- NOTE | 2023-10-11 11:08 | P.CNNES ---
History of Present Illness Consult date: 10/10/23 Requesting physician: Young Duque Reason for Consult: Code stroke History of Present Illness: Patient is a 73-year-old right-handed male with previous history of CVA, with residual right homonymous hemianopia, who was brought to the hospital by ambulance at 1:31 PM for altered mental status. Patient's daughter was present along with patient's grandson, who lives with the patient. He mentions that he came home from lunch break, and heard patient mary lou. He had fell and off the bed, and the mattress was not very high off the floor. He was face down, with bruise on the face above the right eye. Blood was coming from the mouth like if he has bitten the tongue. Patient does not have much teeth. The last known time patient's grandson saw him was midnight, when he was acting normally. He called the ambulance and was brought to the hospital. As per EMS flowsheet, when they arrived on the scene, found patient laying supine on the floor. Patient's grandson stated that patient has last seen normal around midnight. Patient was withdrawing to painful stimuli upon EMS arrival with GCS of 6. Patient had abrasion to the forehead right eye, right wrist. Patient resumed to have fallen. Patient was placed in the ambulance when he began exhibiting tonic seizure activity. There is no previous history of seizures. Patient was administered Versed 5 mg IM and then no seizure occurred following Versed administration. Twelve-lead EKG showed sinus tachycardia. Patient remained GCS of 6 upon arrival at [facility]. Patient's vitals at the scene was blood pressure 146/75, pulse rate 125, res pirations 16, saturation 92% and blood sugar 224. Vitals on arrival blood pressure 112/98, pulse rate 105, temperature 98.[address] head revealed no acute intracranial process. MRI can be performed as clinically indicated. Old left occipital lobe infarct. Chronic appearing periventricular white matter ischemic change with atrophy. I personally reviewed CT head agree with the findings. EKG shows sinus tachycardia. Chest x-ray showed no acute cardiopulmonary disease. COPD c hanges. Patient's blood test shows WBC 17.3 hemoglobin 4.32, elevated MCV 102.3. Platelets are normal. PT PTT normal. Electrolytes are normal, BUN 11 creatinine 1.44. Hepatic panel is normal, troponin 3.190. Urinalysis shows moderate leukocyte esterase, more than 182 RBCs and 99 WBC. Urine drug screen positive for benzodiazepine and marijuana. Blood alcohol level negative. ED staff discussed case with stroke neurologist Dr. Ferris, who felt patient was not a candidate for tPA, as his last known well was over 12 hours prior. He was concerned if patient has status epilepticus to be transferred to [facility]. Patient was not a candidate for tPA or thrombectomy. Patient was found to have elevated troponin. ED staff discussed case with automobile service station manager. Patient was given rectal aspirin. Patient's daughter mentions that patient has history of a stroke in 2012, for which she received tPA, but has residual right homonymous hemianopia. Patient lives with his grandson. Patient had history of stenting to the left ICA. Patient walks by himself, does not use any assistive device. No previous history of seizure. Patient's daughter believes that patient has "mild to moderate dementia". Patient is very hard of hearing. Patient also suffered from recent shingles in June in the ER. Patient has smoked 1 pack/day since age 14. He has history of alcohol intake, not every day but once a week. He did drink about 4-5 last night. Patient's daughter also mentions that patient is supposed to take aspirin and Plavix but he is noncompliant, has not taken his medication for a month. Review of Systems As per report from patient's daughter and grandson. Constitutional: Denies chills, Denies fever Eyes: right loss of peripheral vision, denies blurred vision, denies diplopia, denies pain Ears: left: tinnitus, bilateral: decreased hearing Ears, nose, mouth and throat: Denies headache, Denies sore throat Cardiovascular: Reports shortness of breath, Denies chest pain Respiratory: Reports cough, Reports excessive sputum Gastrointestinal: Denies abdominal pain, Denies diarrhea, Denies nausea, Denies vomiting Psychiatric: Reports memory loss, Denies anxiety, Denies depression Hematologic/Lymphatic: Reports easy bleeding, Reports easy bruising Past Medical History Past Medical History: CVA/TIA, Hypertension Additional Past Medical History / Comment(s): vision trouble right eye History of Any Multi-Drug Resistant Organisms: None Reported Past Surgical History: Appendectomy, Cholecystectomy, Tonsillectomy Past Anesthesia/Blood Transfusion Reactions: No Reported Reaction Past Psychological History: No Psychological Hx Reported Smoking Status: Current every day smoker Past Alcohol Use History: Occasional Past Drug Use History: Marijuana Medications and Allergies Home Medications Medication Instructions Recorded Confirmed Type No Known Home Medications 10/10/23 10/10/23 History Allergies Allergy/AdvReac Type Severity Reaction Status Date / Time Penicillins Allergy Rash/Hives Verified 10/10/23 14:15 Sulfa (Sulfonamide Allergy Unknown Verified 10/10/23 14:15 Antibiotics) Physical Examination - Vital Signs Vital Signs: Vital Signs Temp Pulse Resp BP Pulse Ox 10/10/23 17:30 110 H 18 131/86 96 10/10/23 16:05 97.9 F 95 16 141/87 95 10/10/23 15:01 98.2 F 100 30 H 140/97 99 10/10/23 14:30 106 H 20 162/95 95 10/10/23 14:15 116 H 24 157/97 97 10/10/23 14:04 107 H 28 H 130/83 97 10/10/23 13:55 113 H 36 H 143/84 95 10/10/23 13:36 98.5 F 105 H 32 H 112/98 94 L 10/10/23 13:35 31 H Intake and Output 10/10/23 10/10/23 10/10/23 06:59 14:59 22:59 Other: Weight 56.926 kg Patient is an elderly male, who is acutely encephalopathic. Patient is obtunded, very confused, restless, almost appears postictal. Patient is laying on his right side. Patient is not making any speech. He keeps his eyes closed. Attention, concentration is severely diminished. Fund of knowledge cannot be assessed. On cranial nerve examination, pupils are equal, round and reacting to light, and the gaze is midline. Patient is keeping his eyes closed. Visual becerra could not be tested. No obvious nystagmus noted. Oculocephalics are absent. Corneals present. Lower cranial nerves cannot be tested because patient is not cooperating. Face appears symmetric. On muscle strength testing, could not check for pronator drift, as patient is laying on the right side. He was not moving his right arm as much as the left, but he was laying on his right side as well. According to the nursing report, he is moving all 4 extremities. Patient does move both lower extremities fairly well. He does withdraw to painful stimuli in the lower limbs, but not in the upper limbs. Deep tendon reflexes are symmetric very hypoactive and plantars are flat. Sensory to touch cannot be assessed. Cerebellar function cannot be assessed. Tone and bulk of muscles normal. Gait deferred.. On general examination, there is no carotid bruit or murmur, S1-S2 audible. Chest is clear on consultation. Abdomen is soft nontender. No organomegaly, bowel sounds present. Peripheral pulses are present. No peripheral edema. Patient has a small bruise over the right forehead region over the brow. No obvious seizure-like activity noted. Results - Laboratory Findings CBC and BMP: 10/11/23 01:24 10/11/23 06:20 Abnormal Lab Findings: Abnormal Labs 10/10/23 10/10/23 10/10/23 13:58 14:38 14:38 WBC 17.3 H MCV 102.3 H Neutrophils # 15.3 H Lymphocytes # 0.9 L Chloride Carbon Dioxide Creatinine Glucose POC Glucose (mg/dL) 231 H Creatine Kinase Troponin I 3.190 H* Total Protein 10/10/23 15:54 WBC MCV Neutrophils # Lymphocytes # Chloride 110 H Carbon Dioxide 21 L Creatinine 1.44 H Glucose 113 H POC Glucose (mg/dL) Creatine Kinase 745 H Troponin I Total Protein 6.1 L Assessment and Plan Assessment: * 73-year-old male, who was found laying on the floor supine, unresponsive at home. He had a witnessed seizure in the ambulance and at present patient is completely obtunded, restless, appears postictal. Rule out seizure disorder/subclinical status. * History of CVA left occipital lobe with residual right homonymous hemianopia. * Right ICA stenosis about 50 to 69% per CTA. * Elevated cardiac enzymes, rule out ND. * Hypertension * History of possible left carotid revascularization. * Tobacco use * History of alcohol use Plan: * Stroke code was activated. Patient not a candidate for tPA or any thrombectomy. * Patient had a witnessed seizure in the ambulance, and now obtunded, possibly postictal. Patient will be loaded with Keppra 1000 mg IV x 1 dose, followed by 750 mg twice daily. * Stat EEG * Patient has received aspirin 300 mg rectally. * Patient is n.p.o. because of mental status. * For elevated cardiac enzymes, we will defer to cardiology and critical care. * CTA of head and neck revealed moderate stenosis between 50 and 69% right ICA. Mild narrowing of less than 50% left ICA stenosis. Displacement of the left posterior cerebral vasculature. An abrupt cut off to the account for left occipital lobe infarct is not identified. * 2D echo rule out any embolic source. * Neurochecks. * Lipid panel * Hemoglobin A1c * Patient started on vancomycin and cefepime by ED staff for possible infection. * Neurology will follow. Thank you for the consult. Time with Patient: Greater than 30
--- NOTE | 2023-10-11 12:00 | CA ---
Transthoracic Echo Report Name: Russell Frazier Age: 73 Gender: M : 1950 Exam Date: 10/11/2023 08:39 Exam Location: [facility] Ht (in): 69 Wt (lb): 125 Ordering Physician: Nghia Castillo MD ([id number]) Attending/Referring Phys: Aeronautical Test Engineer Neha Jiménez RCS Procedure CPT: Indications: ACS Cardiac Hx: Technical Quality: Very technically difficult study Contrast 1: Definity Total Dose (mL): 2 Contrast 2: Total Dose (mL): MEASUREMENTS (Male / Female) Normal Values 2D ECHO LV Diastolic Diameter PLAX 4.8 cm 4.2 - 5.9 / 3.9 - 5.3 cm LV Systolic Diameter PLAX 4.1 cm IVS Diastolic Thickness 1.0 cm 0.6 - 1.0 / 0.6 - 0.9 cm LVPW Diastolic Thickness 1.0 cm 0.6 - 1.0 / 0.6 - 0.9 cm LV Relative Wall Thickness 0.4 LVOT Diameter 2.0 cm Aortic Root Diameter 3.5 cm LV Diastolic Volume MOD BP 107.7 cm??? 67 - 155 / 56 - 104 cm??? LV Systolic Volume MOD BP 81.5 cm??? 22 - 58 / 19 - 49 cm??? LV Ejection Fraction MOD BP 24.3 % >= 55 % LV Cardiac Index MOD BP 808.6 cm???/min???m??? LV Diastolic Volume MOD 4C 113.2 cm??? LV Systolic Volume MOD 4C 88.1 cm??? LV Ejection Fraction MOD 4C 22.2 % LV Cardiac Index MOD 4C 775.3 cm???/min???m??? LV Diastolic Length 4C 8.6 cm LV Systolic Length 4C 8.1 cm LV Diastolic Volume MOD 2C 101.9 cm??? LV Systolic Volume MOD 2C 69.4 cm??? LV Ejection Fraction MOD 2C 31.8 % LV Cardiac Index MOD 2C 1003.2 cm???/min???m??? LV Diastolic Length 2C 8.7 cm LV Systolic Length 2C 7.4 cm LA Volume 60.4 cm??? 18 - 58 / 22 - 52 cm??? LA Volume Index 36.6 cm???/m??? 16 - 28 cm???/m??? DOPPLER AV Peak Velocity 77.1 cm/s AV Peak Gradient 2.4 mmHg AV Mean Velocity 48.1 cm/s AV Mean Gradient 1.1 mmHg AV Velocity Time Integral 13.0 cm LVOT Peak Velocity 74.3 cm/s LVOT Peak Gradient 2.2 mmHg LVOT Velocity Time Integral 13.7 cm LVOT Stroke Volume 44.0 cm??? LVOT Stroke Volume Index 26.0 ml/m??? LVOT Cardiac Index 1361.6 cm???/min???m??? AV Area Cont Eq vti 3.4 cm??? AV Area Cont Eq pk 3.1 cm??? MV Area PHT 2.6 cm??? Mitral E Point Velocity 56.6 cm/s Mitral A Point Velocity 33.6 cm/s Mitral E to A Ratio 1.7 MV Deceleration Time 290.9 ms TR Peak Velocity 240.5 cm/s TR Peak Gradient 23.1 mmHg Right Ventricular Systolic Press 43.1 mmHg PV Peak Velocity 62.8 cm/s PV Peak Gradient 1.6 mmHg FINDINGS Left Ventricle Left ventricular ejection fraction is estimated at 15-20 %. Moderately increased left ventricular systolic volume. Severely decreased left ventricular ejection fraction with regional variability. Right Ventricle Normal right ventricular size by visual with moderately reduced function. Moderately elevated right ventricular systolic pressure. Right Atrium Normal right atrial size. Left Atrium Mildly increased left atrial volume. Mitral Valve Structurally normal mitral valve. No mitral stenosis, regurgitation or prolapse. Aortic Valve Trileaflet aortic valve. Focal thickening of the aortic valve cusps. No aortic valve stenosis or regurgitation. Tricuspid Valve Structurally normal tricuspid valve. No tricuspid stenosis. Trace tricuspid regurgitation. Pulmonic Valve Structurally normal pulmonic valve. No pulmonic stenosis. No pulmonic regurgitation. Pericardium No pericardial effusion. Aorta Aortic annulus normal. Ascending aorta not well visualized. CONCLUSIONS Severe LV systolic dysfunction Pharr appears severely hypokinetic Previewed by: Dr. Justin Wagoner MD (Electronically Signed) Final Date: 11 October 2023 12:00
[2023-10-11 12:02] LABS: Chol/HDL Ratio 2.66 Ratio; LDL Cholesterol,Calculated 41.6 mg/dL (0.0-131.0)
[2023-10-11] MEDS: ATROPINE OPHTH SOLN 1% 5ML BTL SUBLINGUAL PRN (14:13)
[2023-10-11] MEDS: MORPHINE SULFATE (100 MG/2 ML) 100 MG in SODIUM CHLORIDE 0.9% 100 ML IV SCH (14:22)
[2023-10-11] MEDS: MORPHINE SULFATE 4 MG/ML SYRINGE IV PRN (14:24)
--- NOTE | 2023-10-11 14:33 | P.HPIM ---
History of Present Illness H&P Date: 10/11/23 Chief Complaint: Altered mental status This is a 73-year-old gentleman with PMH significant for ongoing nicotine dependence, marijuana use, alcohol use, left carotid stenting, prior CVA, COPD, major depressive disorder, hypertension ,HLD who was brought into [facility] ED via EMS for altered mental status. Information being obtained from chart and staff. Grandson had reported that patient had been drinking alcohol with him the evening before, last seen normal at 12:00 AM and discovered him the following afternoon, laying on the floor with altered mental status. EMS act ivated.Witnessed seizure activity during EMS transport reported. Versed administered. Code stroke activated. patient was deemed not a candidate for tPA or thrombectomy. Patient was loaded with Keppra. Febrile on admission with Tmax of 102.7.Brain CT did not report acute intracranial process, reported old left occipital infarct and chronic appearing periventricular white matter ischemic changes with atrophy. CTA reported moderate stenosis between 50 and 69% right internal carotid artery, mild narrowing of less than 50% left internal carotid artery, displacement of left posterior cerebral vasculature, abrupt cut off to account for the left occipital lobe infarct not identified. Troponins 3.190, 17.500, 33.600, EKG changes reported. Cardiology reviewed serial EKGs recommending emergent cardiac cath. activation. Patient reported agitated with significant change in mental status upon arrival to the cardiac Pastoral Worker. Processing Assistant discussed case with patient's daughter who is an RN and they declined cardiac catheterization and decided to proceed with medical treatment only- with heparin drip resumed.WBC 17.3, decreased to 13.4, hemoglobin 12, hematocrit 37, platelets 140. Sodium 140, potassium 3.8, chloride 114, bicarb 17, BUN 18, creatinine 1.35, glucose 155. Creatinine kinase 4292 .positive UA .toxicology detected opiates, benzodiazepines and THC. Serum alcohol level less than 10. Hypotensive, received IV fluid resuscitation. Patient admitted to the ICU. Mechanical ventilator dependent, maintained on 50% FiO2/+5 of PEEP, continues on heparin drip, Levophed,Diprovan gtts. in addition to antibiotics. patient is in critical condition, septic with multiple with multisystem organ failure. Family is currently in a meeting with the form block maker. Review of Systems Unable to perform review of systems, patient sedated and intubated Past Medical History Past Medical History: COPD, CVA/TIA, Hypertension Additional Past Medical History / Comment(s): vision trouble right eye History of Any Multi-Drug Resistant Organisms: None Reported Past Surgical History: Appendectomy, Cholecystectomy, Tonsillectomy Additional Past Surgical History / Comment(s): Left carotid stent 2012 Past Anesthesia/Blood Transfusion Reactions: No Reported Reaction Past Psychological History: No Psychological Hx Reported Smoking Status: Current every day smoker Past Alcohol Use History: Occasional Past Drug Use History: Marijuana Medications and Allergies Home Medications Medication Instructions Recorded Confirmed Type No Known Home Medications 10/10/23 10/10/23 History Allergies Allergy/AdvReac Type Severity Reaction Status Date / Time Penicillins Allergy Rash/Hives Verified 10/10/23 14:15 Sulfa (Sulfonamide Allergy Unknown Verified 10/10/23 14:15 Antibiotics) Physical Exam Vitals: Vital Signs Temp Pulse Resp BP Pulse Ox FiO2 10/11/23 08:16 50 10/11/23 08:12 50 10/11/23 08:00 97.6 F 52 L 24 100 50 10/11/23 07:00 58 L 10 L 89/51 100 10/11/23 06:45 54 L 11 L 87/52 10/11/23 06:30 52 L 18 81/49 100 10/11/23 06:15 54 L 22 79/49 100 10/11/23 06:00 54 L 18 97/62 100 10/11/23 05:45 58 L 18 90/57 10/11/23 05:30 59 L 18 98 10/11/23 05:15 57 L 18 10/11/23 05:00 60 18 96 50 10/11/23 04:45 64 18 100 10/11/23 04:30 84 18 95/62 100 10/11/23 04:15 62 18 91/61 100 10/11/23 04:05 72 10/11/23 04:00 98.6 F 64 18 100 50 10/11/23 03:55 50 10/11/23 03:52 50 10/11/23 03:50 68 10/11/23 03:45 69 18 87/63 100 10/11/23 03:30 66 15 85/66 100 10/11/23 03:15 66 18 84/62 100 10/11/23 03:00 63 18 100 10/11/23 02:45 65 18 85/69 100 04/17/24 02:30 66 19 100 10/11/23 02:15 74 18 100 10/11/23 02:00 75 18 10/11/23 01:45 76 18 100 10/11/23 01:30 75 18 100 10/11/23 01:15 78 18 99 10/11/23 01:01 60 10/11/23 01:00 80 21 99 10/11/23 00:45 91 18 99 10/11/23 00:44 84 10/11/23 00:35 89 18 90/74 99 10/11/23 00:30 88 17 82/58 100 100 10/11/23 00:20 85 22 135/90 98 10/11/23 00:12 100 10/11/23 00:10 103 H 18 135/90 95 10/11/23 00:00 92 53 H 183/169 93 L 10/10/23 23:59 100 10/10/23 23:50 92 20 92 L 10/10/23 23:40 95 15 93 L 10/10/23 23:30 112 H 17 93 L 10/10/23 23:20 102 H 25 H 92 L 10/10/23 23:10 92 17 134/113 93 L 10/10/23 23:00 97 22 101/61 93 L 10/10/23 22:50 135 H 21 93 L 10/10/23 22:40 107 H 23 93 L 10/10/23 22:30 114 H 38 H 108/64 93 L 10/10/23 22:20 109 H 52 H 108/64 93 L 10/10/23 22:10 103 H 26 H 108/64 92 L 10/10/23 22:00 109 H 18 89/54 92 L 10/10/23 21:50 96 16 94 L 10/10/23 21:40 103 H 18 93 L 10/10/23 21:30 100.8 F H 96 18 94 L 10/10/23 21:27 100.8 F H 18 10/10/23 21:20 112 H 18 108/82 93 L 10/10/23 21:18 98 16 93 L 10/10/23 20:20 111/83 10/10/23 20:15 107/72 10/10/23 20:00 113/75 10/10/23 19:53 102.2 F H 101 H 20 104/94 95 10/10/23 19:02 105 H 20 115/97 95 10/10/23 18:47 102.7 F H 10/10/23 18:13 100 17 133/83 95 10/10/23 17:30 110 H 18 131/86 96 10/10/23 16:05 97.9 F 95 16 141/87 95 10/10/23 15:01 98.2 F 100 30 H 140/97 99 10/10/23 14:30 106 H 20 162/95 95 10/10/23 14:15 116 H 24 157/97 97 10/10/23 14:04 107 H 28 H 130/83 97 10/10/23 13:55 113 H 36 H 143/84 95 10/10/23 13:36 98.5 F 105 H 32 H 112/98 94 L 10/10/23 13:35 31 H Intake and Output 10/10/23 10/11/23 10/11/23 22:59 06:59 14:59 Intake Total 10.474 2588 296 Output Total 0 110 35 Balance 10.474 2478 261 Intake: IV 2438 296 0.9 NS KVO 120 40 Pressure Bag 18 6 Sodium Chloride 0.9% 1, 300 250 000 ml @ 125 mls/hr IV . Q8H MANISH Rx#:[id number] Sodium Chloride 0.9% 1, 1000 000 ml @ 999 mls/hr IV . Q1H1M ONE Rx#:[id number] Sodium Chloride 0.9% 1, 1000 000 ml @ 999 mls/hr IV . Q1H1M STA Rx#:[id number] Intake, IV Titration 10.474 150 Amount Acyclovir Sodium 500 mg 100 In Sodium Chloride 0.9% 100 ml @ 100 mls/hr IVPB Q8HR MANISH Rx#:[id number] Heparin Sod,Pork in 0.45% 10.474 NaCl 25,000 unit In 0.45 % NaCl 1 250ml.bag @ 12 UNITS/KG/HR 6.831 mls/hr IV .Q24H MANISH Rx#: [id number] cefTRIAXone 2 gm In 50 Sodium Chloride 0.9% 50 ml @ 100 mls/hr IVPB Q12H MANISH Rx#:[id number] Output: Urine 0 110 35 Other: Voiding Method Incontinent Indwelling Catheter Indwelling Catheter Weight 56.926 kg 59 kg ABP, PAP, CO, CI - Last 8 Hours Arterial Blood Pressure 115/47 Arterial Blood Pressure 118/52 Arterial Blood Pressure 99/43 Arterial Blood Pressure 102/44 Arterial Blood Pressure 98/41 Arterial Blood Pressure 113/46 Arterial Blood Pressure 100/50 Arterial Blood Pressure 95/48 Arterial Blood Pressure 83/50 Arterial Blood Pressure 105/49 Arterial Blood Pressure 92/43 Arterial Blood Pressure 118/81 Arterial Blood Pressure 116/54 Arterial Blood Pressure 110/53 Arterial Blood Pressure 106/57 Arterial Blood Pressure 106/55 Arterial Blood Pressure 110/53 Arterial Blood Pressure 97/48 Arterial Blood Pressure 88/46 Arterial Blood Pressure 92/47 Arterial Blood Pressure 98/53 Arterial Blood Pressure 100/54 Arterial Blood Pressure 92/49 Arterial Blood Pressure 86/48 Arterial Blood Pressure 79/45 Arterial Blood Pressure 72/45 Arterial Blood Pressure 76/46 Arterial Blood Pressure 77/45 Arterial Blood Pressure 76/53 VS: Reviewed General: thin, appears older than stated age, intubated, sedated HEENT: Normocephalic, right facial ecchymosis ,conjunctiva normal Neck: supple, no JVD Lungs: Equal air entry, scattered rhonchi throughout CV: Regular rate and rhythm, no murmur. Abdomen: soft, no organomegaly. Extremities: cold, no edema, no clubbing, no cyanosis, positive DP pulse Neuro: Unable to assess at this time Skin: Left knee abrasion, Results CBC & Chem 7: 10/11/23 01:24 10/11/23 06:20 Labs: Abnormal Lab Results - Last 24 Hours (Table) 10/10/23 10/10/23 10/10/23 Range/Units 13:58 14:38 14:38 WBC 17.3 H (3.8-10.6) k/uL RBC (4.30-5.90) m/uL Hgb (13.0-17.5) gm/dL Hct (39.0-53.0) % MCV 102.3 H (80.0-100.0) fL Plt Count (150-450) k/uL Neutrophils # 15.3 H (1.3-7.7) k/uL Lymphocytes # 0.9 L (1.0-4.8) k/uL APTT (22.0-30.0) sec D-Dimer (<0.60) mg/L FEU ABG pH (7.35-7.45) ABG pO2 (83-108) mmHg ABG HCO3 (21-25) mmol/L ABG O2 Saturation (94-97) % Potassium (3.5-5.1) mmol/L Chloride (98-107) mmol/L Carbon Dioxide (22-30) mmol/L Creatinine (0.66-1.25) mg/dL Glucose (74-99) mg/dL POC Glucose (mg/dL) 231 H (70-110) mg/dL Calcium (8.4-10.2) mg/dL Creatine Kinase (55-170) U/L Troponin I 3.190 H* (0.000-0.034) ng/mL Total Protein (6.3-8.2) g/dL Urine Protein (Negative) Urine Ketones (Negative) Urine Blood (Negative) Ur Leukocyte Esterase (Negative) Urine RBC (0-5) /hpf Urine WBC (0-5) /hpf Urine WBC Clumps (None) /hpf Urine Bacteria (None) /hpf Hyaline Casts (0-2) /lpf Urine Opiates Screen (NotDetected) U Benzodiazepines Scrn (NotDetected) U Marijuana (THC) Screen (NotDetected) 10/10/23 10/10/23 10/10/23 Range/Units 15:54 18:48 21:18 WBC (3.8-10.6) k/uL RBC (4.30-5.90) m/uL Hgb (13.0-17.5) gm/dL Hct (39.0-53.0) % MCV (80.0-100.0) fL Plt Count (150-450) k/uL Neutrophils # (1.3-7.7) k/uL Lymphocytes # (1.0-4.8) k/uL APTT (22.0-30.0) sec D-Dimer (<0.60) mg/L FEU ABG pH (7.35-7.45) ABG pO2 (83-108) mmHg ABG HCO3 (21-25) mmol/L ABG O2 Saturation (94-97) % Potassium (3.5-5.1) mmol/L Chloride 110 H (98-107) mmol/L Carbon Dioxide 21 L (22-30) mmol/L Creatinine 1.44 H (0.66-1.25) mg/dL Glucose 113 H (74-99) mg/dL POC Glucose (mg/dL) 129 H (70-110) mg/dL Calcium (8.4-10.2) mg/dL Creatine Kinase 745 H (55-170) U/L Troponin I 17.500 H* (0.000-0.034) ng/mL Total Protein 6.1 L (6.3-8.2) g/dL Urine Protein (Negative) Urine Ketones (Negative) Urine Blood (Negative) Ur Leukocyte Esterase (Negative) Urine RBC (0-5) /hpf Urine WBC (0-5) /hpf Urine WBC Clumps (None) /hpf Urine Bacteria (None) /hpf Hyaline Casts (0-2) /lpf Urine Opiates Screen (NotDetected) U Benzodiazepines Scrn (NotDetected) U Marijuana (THC) Screen (NotDetected) 10/11/23 10/11/23 10/11/23 Range/Units 00:31 01:24 01:24 WBC (3.8-10.6) k/uL RBC (4.30-5.90) m/uL Hgb (13.0-17.5) gm/dL Hct (39.0-53.0) % MCV (80.0-100.0) fL Plt Count (150-450) k/uL Neutrophils # (1.3-7.7) k/uL Lymphocytes # (1.0-4.8) k/uL APTT (22.0-30.0) sec D-Dimer 8.22 H (<0.60) mg/L FEU ABG pH 7.28 L (7.35-7.45) ABG pO2 212 H (83-108) mmHg ABG HCO3 19 L (21-25) mmol/L ABG O2 Saturation 99.8 H (94-97) % Potassium (3.5-5.1) mmol/L Chloride (98-107) mmol/L Carbon Dioxide (22-30) mmol/L Creatinine (0.66-1.25) mg/dL Glucose (74-99) mg/dL POC Glucose (mg/dL) (70-110) mg/dL Calcium (8.4-10.2) mg/dL Creatine Kinase (55-170) U/L Troponin I 33.600 H* (0.000-0.034) ng/mL Total Protein (6.3-8.2) g/dL Urine Protein (Negative) Urine Ketones (Negative) Urine Blood (Negative) Ur Leukocyte Esterase (Negative) Urine RBC (0-5) /hpf Urine WBC (0-5) /hpf Urine WBC Clumps (None) /hpf Urine Bacteria (None) /hpf Hyaline Casts (0-2) /lpf Urine Opiates Screen (NotDetected) U Benzodiazepines Scrn (NotDetected) U Marijuana (THC) Screen (NotDetected) 10/11/23 10/11/23 10/11/23 Range/Units 01:24 01:24 02:31 WBC 13.4 H (3.8-10.6) k/uL RBC 3.61 L (4.30-5.90) m/uL Hgb 12.0 L (13.0-17.5) gm/dL Hct 37.1 L (39.0-53.0) % MCV 102.9 H (80.0-100.0) fL Plt Count 140 L (150-450) k/uL Neutrophils # 12.2 H (1.3-7.7) k/uL Lymphocytes # 0.6 L (1.0-4.8) k/uL APTT (22.0-30.0) sec D-Dimer (<0.60) mg/L FEU ABG pH (7.35-7.45) ABG pO2 (83-108) mmHg ABG HCO3 (21-25) mmol/L ABG O2 Saturation (94-97) % Potassium 3.4 L (3.5-5.1) mmol/L Chloride 115 H (98-107) mmol/L Carbon Dioxide 17 L (22-30) mmol/L Creatinine 1.35 H (0.66-1.25) mg/dL Glucose 133 H (74-99) mg/dL POC Glucose (mg/dL) (70-110) mg/dL Calcium 7.3 L (8.4-10.2) mg/dL Creatine Kinase 4292 H* (55-170) U/L Troponin I (0.000-0.034) ng/mL Total Protein (6.3-8.2) g/dL Urine Protein (Negative) Urine Ketones (Negative) Urine Blood (Negative) Ur Leukocyte Esterase (Negative) Urine RBC (0-5) /hpf Urine WBC (0-5) /hpf Urine WBC Clumps (None) /hpf Urine Bacteria (None) /hpf Hyaline Casts (0-2) /lpf Urine Opiates Screen (NotDetected) U Benzodiazepines Scrn (NotDetected) U Marijuana (THC) Screen (NotDetected) 10/11/23 10/11/23 10/11/23 Range/Units 03:35 03:35 04:00 WBC (3.8-10.6) k/uL RBC (4.30-5.90) m/uL Hgb (13.0-17.5) gm/dL Hct (39.0-53.0) % MCV (80.0-100.0) fL Plt Count (150-450) k/uL Neutrophils # (1.3-7.7) k/uL Lymphocytes # (1.0-4.8) k/uL APTT 66.8 H (22.0-30.0) sec D-Dimer (<0.60) mg/L FEU ABG pH (7.35-7.45) ABG pO2 (83-108) mmHg ABG HCO3 (21-25) mmol/L ABG O2 Saturation (94-97) % Potassium (3.5-5.1) mmol/L Chloride (98-107) mmol/L Carbon Dioxide (22-30) mmol/L Creatinine (0.66-1.25) mg/dL Glucose (74-99) mg/dL POC Glucose (mg/dL) (70-110) mg/dL Calcium (8.4-10.2) mg/dL Creatine Kinase (55-170) U/L Troponin I (0.000-0.034) ng/mL Total Protein (6.3-8.2) g/dL Urine Protein 1+ H (Negative) Urine Ketones Trace H (Negative) Urine Blood Large H (Negative) Ur Leukocyte Esterase Moderate H (Negative) Urine RBC >182 H (0-5) /hpf Urine WBC 99 H (0-5) /hpf Urine WBC Clumps Moderate H (None) /hpf Urine Bacteria Moderate H (None) /hpf Hyaline Casts 24 H (0-2) /lpf Urine Opiates Screen Detected H (NotDetected) U Benzodiazepines Scrn Detected H (NotDetected) U Marijuana (THC) Screen Detected H (NotDetected) 10/11/23 10/11/23 Range/Units 05:48 06:20 WBC (3.8-10.6) k/uL RBC (4.30-5.90) m/uL Hgb (13.0-17.5) gm/dL Hct (39.0-53.0) % MCV (80.0-100.0) fL Plt Count (150-450) k/uL Neutrophils # (1.3-7.7) k/uL Lymphocytes # (1.0-4.8) k/uL APTT (22.0-30.0) sec D-Dimer (<0.60) mg/L FEU ABG pH 7.29 L (7.35-7.45) ABG pO2 173 H (83-108) mmHg ABG HCO3 19 L (21-25) mmol/L ABG O2 Saturation 99.6 H (94-97) % Potassium (3.5-5.1) mmol/L Chloride 114 H (98-107) mmol/L Carbon Dioxide 17 L (22-30) mmol/L Creatinine 1.35 H (0.66-1.25) mg/dL Glucose 155 H (74-99) mg/dL POC Glucose (mg/dL) (70-110) mg/dL Calcium 7.4 L (8.4-10.2) mg/dL Creatine Kinase (55-170) U/L Troponin I (0.000-0.034) ng/mL Total Protein (6.3-8.2) g/dL Urine Protein (Negative) Urine Ketones (Negative) Urine Blood (Negative) Ur Leukocyte Esterase (Negative) Urine RBC (0-5) /hpf Urine WBC (0-5) /hpf Urine WBC Clumps (None) /hpf Urine Bacteria (None) /hpf Hyaline Casts (0-2) /lpf Urine Opiates Screen (NotDetected) U Benzodiazepines Scrn (NotDetected) U Marijuana (THC) Screen (NotDetected) Assessment and Plan Assessment: Sepsis with multisystem organ failure Elevated troponin, acute [place]. Evaluated by cardiology, medical management Witnessed seizure in the ambulance, maintained on Keppra Acute right-sided aspiration pneumonia Acute hypoxic respiratory failure, mechanical ventilator dependent Hypotension, status post fluid resuscitation, pressor dependent Altered mental status, minimally responsive at home ,code stroke workup in progress Acute rhabdomyolysis, reported downtime of 12 hours, CK 4292 Acute renal failure suspect secondary to ATN Acute UTI Right ICA stenosis 50 to 69%,history of left carotid stent 2012; mild narrowing of less than 50% of the left ICA. COPD History of CVA left occipital lobe with residual right eye visual deficit History of hypertension Ongoing nicotine dependence Marijuana use Alcohol use No code, no CPR, no intubation Plan: Continue on current medication using ,monitoring and symptomatic treatment: ICU management as per form block maker. Maintain supportive care. evaluated by pulmonary, cardiology and neurology. Infectious disease on consult. prognosis poor. Family meeting in progress with form block maker. The impression and plan of care has been dictated as directed. : I performed a history and examination of this patient, discussed the same with the dictator. I agree with the dictator's note ,documented as a scribe. Any additional findings or plans will be noted.
[2023-10-11] MEDS: LORazepam 2 MG/ML INJ IV PRN (15:26)
--- NOTE | 2023-10-11 15:39 | P.PN ---
Progress Note - Text Progress Note Date: 10/11/23 Came to see the patient. Apparently since seen yesterday, patient was diagnosed with acute MA. Patient was taken to cardiac cath. Transferred to ICU, was intubated. Patient was diagnosed with STEMI with very high cardiac enzymes. Please refer to cardiology notes for further details about cardiac status. Neurologically patient had undergone EEG, which was performed while patient was intubated, on propofol 40 mcg/kg/min. It was severely abnormal due to slow background suggestive of severe encephalopathy. Also there were periodic low amplitude sharp appearing waves in the left temporal region. This could be just related to his previous stroke area being irritable, although herpes e ncephalitis also on the differential. No electrographic seizure was recorded. Patient on Keppra 750 mg IV twice daily. Patient already has been started on acyclovir, vancomycin, ceftriaxone. Lumbar puncture was considered, but patient is already on high-dose heparin for acute MA. Family had decided patient to be terminally weaned, comfort care, now on morphine drip. Discussed with family members and nursing staff in detail. Neurology will sign off.
[2023-10-11] MEDS: VANCOMYCIN 1,000 MG in SODIUM CHLORIDE 0.9% 250 ML IVPB SCH (16:56)
[2023-10-11] MEDS ORDERED: ACYCLOVIR SODIUM 500 MG in SODIUM CHLORIDE 0.9% 100 ML IVPB SCH (21:00)
[2023-10-11] MEDS: SCOPOLAMINE 1 MG/72 HR PATCH TRANSDERM STA (21:20)
--- NOTE | 2023-10-11 23:06 | EEG ---
ELECTROENCEPHALOGRAM REPORT PREAMBLE: This is a 73-year-old male who was brought to the hospital by altered mental status, found on the floor. The patient had a seizure in the ambulance. The patient currently on propofol 40 mcg, Keppra, and also started on acyclovir, vancomycin, and ceftriaxone. Patient has history of CVA with left occipital lobe encephalomalacia from previous CVA. Patient is unresponsive. EEG FINDINGS: This is a 21-channel portable EEG recorded with video component, utilizing 10/20 international system with referential and bipolar montages. The recording starts and continues with presence of very suppressed low amplitude activities seen diffusely in bihemispheric region. There is frequent low amplitude left temporal periodic sharp appearing waves, suggestive of possible epileptiform activity. No electrographic seizure was however recorded. Different stages of sleep were not seen. Photic stimulation was not done. IMPRESSION: This is severely abnormal EEG because of 1. Background slowing with suppression, suggestive of generalized cerebral dysfunction as can be seen with severe encephalopathy or related to medication effect. 2. Presence of the probable low amplitude and sharp appearing waves left temporal region, suggestive of focal cortical neuronal dysfunction with underlying cortical irritability. The differential would include irritative lesion like herpes encephalitis. Followup EEG strongly recommended. MMODL / IJN: [id number] / ADELINE
[2023-10-12 07:58] LABS: African American GFR (CKD) 57 (>60 ml/min/1.73 sqM); Non-African American GFR(CKD) 49 (>60 ml/min/1.73 sqM)
[2023-10-12 09:14] VITALS: BP 97/61; PULSE 105; TEMP 98.4
[2023-10-12] MEDS: GLYCOPYRROLATE 0.2 MG/ML 2 ML VIAL IVP PRN (10:17)
--- NOTE | 2023-10-12 10:52 | P.PN ---
Subjective Progress Note Date: 10/12/23 H&P Date: 10/11/23 Chief Complaint: Altered mental status This is a 73-year-old gentleman with PMH significant for ongoing nicotine dependence, marijuana use, alcohol use, left carotid stenting, prior CVA, COPD, major depressive disorder, hypertension ,HLD who was brought into [facility] ED via EMS for altered mental status. Information being obtained from chart and staff. Grandson had reported that patient had been drinking alcohol with him the evening before, last seen normal at 12:00 AM and discovered him the following afternoon, laying on the floor with altered mental status. EMS activated.Witnessed seizure activity during EMS transport reported. Versed administered. Code stroke activated. patient was deemed not a candidate for tPA or thrombectomy. Patient was loaded with Keppra. Febrile on admission with Tmax of 102.7.Brain CT did not report acute intracranial process, reported old left occipital infarct and chronic appearing periventricular white matter ischemic changes with atrophy. CTA reported moderate stenosis between 50 and 69% right internal carotid artery, mild narrowing of less than 50% left internal carotid artery, displacement of left posterior cerebral vasculature, abrupt cut off to account for the left occipital lobe infarct not identified. Troponins 3.190, 17.500, 33.600, EKG changes reported. Cardiology reviewed serial EKGs recommending emergent cardiac cath. activation. Patient reported agitated with significant change in mental status upon arrival to the cardiac Art Objects Repairer. Relationship Executive discussed case with patient's daughter who is an RN and they declined cardiac catheterization and decided to proceed with medical treatment only- with heparin drip resumed.WBC 17.3, decreased to 13.4, hemoglobin 12, hematocrit 37, platelets 140. Sodium 140, potassium 3.8, chloride 114, bicarb 17, BUN 18, creatinine 1.35, glucose 155. Creatinine kinase 4292 .positive UA .toxicology detected opiates, benzodiazepines and THC. Serum alcohol level less than 10. Hypotensive, received IV fluid resuscitation. Patient admitted to the ICU. Mechanical ventilator dependent, maintained on 50% FiO2/+5 of PEEP, amara nues on heparin drip, Levophed,Diprovan gtts. in addition to antibiotics. patient is in critical condition, septic with multiple with multisystem organ failure. Family is currently in a meeting with the ward attendant. ICU management as per ward attendant. Maintain supportive care. evaluated by pulmonary, cardiology and neurology. Infectious disease on consult. prognosis poor. Family meeting in progress with ward attendant. 10/12/2023 yesterday family decided to proceed with comfort care. Patient t erminally weaned, currently on morphine drip. Family at bedside, reports hospice nurse was in to see them. Patient appears comfortable. Objective - Vital Signs Vital signs: Vital Signs Temp 98.4 F 10/12/23 08:00 Pulse 105 H 10/12/23 08:00 Resp 15 10/12/23 08:00 BP 97/61 10/12/23 08:00 Pulse Ox 85 L 10/11/23 20:00 FiO2 50 10/11/23 12:00 Intake & Output 10/11/23 10/12/23 10/12/23 18:59 06:59 18:59 Intake Total 1506.402 81.6 95.931 Output Total 105 600 Balance 1401.402 -518.4 95.931 Intake: IV 1036 0.9 NS KVO 140 Pressure Bag 21 Sodium Chloride 0.9% 1, 875 000 ml @ 125 mls/hr IV . Q8H [facility] Rx#:[id number] Intake, IV Titration 470.402 81.6 95.931 Amount Heparin Sod,Pork in 0.45% 111.801 NaCl 25,000 unit In 0.45 % NaCl 1 250ml.bag @ 12 UNITS/KG/HR 6.831 mls/hr IV .Q24H [facility] Rx#: [id number] Morphine Sulfate (100 mg/ 3.842 81.6 95.931 2 ml) 100 mg In Sodium Chloride 0.9% 100 ml @ 1 MG/HR 1.02 mls/hr IV . Q24[facility] Rx#:[id number] Norepinephrine 4 mg In 254.000 Sodium Chloride 0.9% 250 ml @ 0.03 MCG/KG/MIN 6. 507 mls/hr IV .Q24[facility] Rx#:[id number] Vasopressin 60 unit In 34.043 Sodium Chloride 0.9% 150 ml @ 0.03 UNITS/MIN 4.59 mls/hr IV .Q24[facility] Rx#: [id number] propofoL 1,000 mg In 66.716 Empty Bag 1 bag @ 15 MCG/ KG/MIN 5.123 mls/hr IV . [id number] [facility] Rx#:[id number] Output: Urine 105 600 Other: Voiding Method Indwelling Catheter Indwelling Catheter ABP, PAP, CO, CI - Last Documented Arterial Blood Pressure 124/47 - Exam General: Lying in bed, on morphine drip, respiratory effort normal, currently without periods of apnea, positive gurgling. Appears comfortable. - Labs CBC & Chem 7: 10/11/23 01:24 10/12/23 07:06 Labs: Abnormal Lab Results - Last 24 Hours (Table) 10/11/23 10/12/23 Range/Units 06:00 07:06 Creatinine 1.40 H (0.66-1.25) mg/dL HDL Cholesterol 38.40 L (40.00-60.00) mg/dL Microbiology - Last 24 Hours (Table) 10/10/23 17:40 Blood Culture - Preliminary Blood 10/10/23 17:25 Blood Culture - Preliminary Blood 10/11/23 00:30 Gram Stain - Preliminary Sputum Assessment and Plan Assessment: Sepsis with multisystem organ failure Elevated troponin, acute DE. Evaluated by cardiology, medical management Witnessed seizure in the ambulance, maintained on Keppra Acute right-sided aspiration pneumonia Acute hypoxic respiratory failure, mechanical ventilator dependent Hypotension, status post fluid resuscitation, pressor dependent Altered mental status, minimally responsive at home ,code stroke workup in progress Acute rhabdomyolysis, reported downtime of 12 hours, CK 4292 Acute renal failure suspect secondary to ATN Acute UTI Right ICA stenosis 50 to 69%,history of left carotid stent 2012; mild narrowing of less than 50% of the left ICA. COPD History of CVA left occipital lobe with residual right eye visual deficit History of hypertension Ongoing nicotine dependence Marijuana use Alcohol use No code, no CPR, no intubation Comfort care Plan: Continue on current medication using ,monitoring and symptomatic treatment: ICU management as per ward attendant. Comfort care. Titrate morphine to comfort. Hospice consult in place. On family at bedside, questions and c oncerns addressed. Support given. The impression and plan of care has been dictated as directed. : I performed a history and examination of this patient, discussed the same with the dictator. I agree with the dictator's note ,documented as a scribe. Any additional findings or plans will be noted.
--- NOTE | 2023-10-13 14:24 | PN ---
PROGRESS NOTE DATE OF SERVICE: 10/13/2023 I am covering for Dr. Cleary. SUBJECTIVE: This 73-year-old gentleman was admitted with extensive pneumonia, myocardial infarction, witnessed seizures, multiorgan failure, is currently on comfort measures. The patient is being closely monitored, placed on morphine drip. PHYSICAL EXAMINATION: VITAL SIGNS: Pulse 105. GENERAL: The patient is sedated. Comfort measures are being continued at this time. LABORATORY DATA: Not available at this time. ASSESSMENT: 1. Extensive pneumonia, right leg with sepsis with multiorgan failure. 2. Elevated troponin with acute myocardial infarction. 3. Witnessed seizures. 4. Aspiration pneumonia. 5. Acute hypoxic respiratory failure. 6. Acute rhabdomyolysis. 7. Acute renal failure. 8. Chronic obstructive pulmonary disease. 9. Multiple complex medical issues. 10.No code, no CPR, no vent. 11.Comfort measures and hospice. RECOMMENDATIONS: Recommended to continue current management and continue symptomatic treatment. Continue the hospice measures. Continue with morphine drip, titrate to comfort, no upper limit. Otherwise, the patient is also on p.r.n. Ativan extremely guarded prognosis. Discussed with family, further recommendations to follow. MMODL / IJN: [id number] /
--- NOTE | 2023-10-14 13:27 | P.PN ---
Subjective Progress Note Date: 10/14/23 * 73-year-old gentleman with PMH significant for ongoing nicotine dependence, marijuana use, alcohol use, left carotid stenting, prior CVA, COPD, major depressive disorder, hypertension ,HLD who was brought into [facility] ED via EMS for altered mental status. Information being obtained from chart and staff. Grandson had reported that patient had been drinking alcohol with him the evening before, last seen normal at 12:00 AM and discovered him the following afternoon, laying on the floor with altered mental status. EMS activated.Witnessed seizure activity during EMS transport reported. Versed administered. Code stroke activated. patient was deemed not a candidate for tPA or thrombectomy. Patient was loaded with Keppra. Febrile on admission with Tmax of 102.7. * Brain CT did not report acute intracranial process, reported old left occipital infarct and chronic appearing periventricular white matter ischemic changes with atrophy. * CTA reported moderate stenosis between 50 and 69% right internal carotid artery, mild narrowing of less than 50% left internal carotid artery, displacement of left posterior cerebral vasculature, abrupt cut off to account for the left occipital lobe infarct not identified. * Troponins 3.190, 17.500, 33.600, EKG changes reported. * Cardiology reviewed serial EKGs recommending emergent cardiac cath. activation. Patient reported agitated with significant change in mental status upon arrival to the cardiac Rapid Outsole Stitcher. * Design Technology Professor discussed case with patient's daughter who is an RN and they declined cardiac catheterization and decided to proceed with medical treatment only- with heparin drip resumed.WBC 17.3, decreased to 13.4, hemoglobin 12, hematocrit 37, platelets 140. Sodium 140, potassium 3.8, chloride 114, bicarb 17, BUN 18, creatinine 1.35, glucose 155. Creatinine kinase 4292 .positive UA . * toxicology detected opiates, benzodiazepines and THC. * Serum alcohol level less than 10. * Hypotensive, received IV fluid resuscitation. Patient admitted to the ICU. Mechanical ventilator dependent, maintained on 50% FiO2/+5 of PEEP, continues on heparin drip, Levophed,Diprovan gtts. in addition to antibiotics. patient is in critical condition, septic with multiple with multisystem organ failure. Family is currently in a meeting with the record tester. * ICU management as per record tester. Maintain supportive care. evaluated by pulmonary, cardiology and neurology. Infectious disease on consult. prognosis poor. Family meeting in progress with record tester. * 10/12/2023 yesterday family decided to proceed with comfort care. Patient t erminally weaned, currently on morphine drip. Family at bedside, reports hospice nurse was in to see them. Patient appears comfortable. * 10/14/23 : Dr Sanchez presumed care: patient remains comfort measures PHYSICAL EXAMINATION: patient is comfort measures exam deferred Assessment and plan * Sepsis with multisystem organ failure * Elevated troponin, acute [place].NSTEMI Evaluated by cardiology, medical management * Witnessed seizure in the ambulance, maintained on Keppra * Acute aspiration pneumonia * Acute hypoxic respiratory failure, mechanical ventilator dependent * septic shockHypotension, status post fluid resuscitation, pressor dependent * acute anoxic encephalopathy * Acute rhabdomyolysis * Acute renal failure * Urinary tract infection * Right ICA stenosis 50 to 69%,history of left carotid stent 2012; mild narrowing of less than 50% of the left ICA. 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 * History of hypertension * Patient transition to comfort measures with focus on comfort,continue patient on Ativan as needed, morphine as needed for pain control Objective - Vital Signs Vital signs: Vital Signs Temp 98.4 F 10/12/23 08:00 Pulse 105 H 10/13/23 07:30 Resp 11 L 10/14/23 07:25 BP 97/61 10/12/23 08:00 Pulse Ox 85 L 10/11/23 20:00 FiO2 50 10/11/23 12:00 Intake & Output 10/13/23 10/14/23 10/14/23 18:59 06:59 18:59 Intake Total 102 204 Output Total 400 Balance 102 -196 Intake: Intake, IV Titration 102 204 Amount Morphine Sulfate (100 mg/ 102 204 2 ml) 100 mg In Sodium Chloride 0.9% 100 ml @ 1 MG/HR 1.02 mls/hr IV . [facility] Rx#:[id number] Output: Urine 400 Other: Voiding Method Indwelling Catheter Indwelling Catheter ABP, PAP, CO, CI - Last Documented Arterial Blood Pressure 124/47 - Labs CBC & Chem 7: 10/11/23 01:24 10/12/23 07:06 Labs: Microbiology - Last 24 Hours (Table) 10/10/23 17:40 Blood Culture - Preliminary Blood 10/10/23 17:25 Blood Culture - Preliminary Blood 10/11/23 00:30 Gram Stain - Final Sputum Sputum Culture - Final
[2023-10-14 14:28] VITALS: RESP 10
--- NOTE | 2023-10-15 09:36 | P.DS ---
Providers Date of admission: 10/10/23 17:18 Expected date of discharge: 10/15/23 Attending physician: Femi Cleary MD Consults: 10/10/23 14:05 Consult Physician Routine Consulting Provider: Carlos Bueno Consult Reason/Comments: code stroke Do you want consulting provider notified?: Yes 10/10/23 17:17 Consult Physician Urgent Consulting Provider: Nghia Castillo Consult Reason/Comments: elevated trop Do you want consulting provider notified?: Already Contacted 10/10/23 21:40 Consult Physician Stat Consulting Provider: Duran Llanos Consult Reason/Comments: ICU Management Do you want consulting provider notified?: Already Contacted 10/10/23 23:57 Consult Physician Urgent Consulting Provider: Ke De La Rosa Consult Reason/Comments: AMS; febrile; unknown source Do you want consulting provider notified?: Yes Primary care physician: Anabella Will [facility] Course: * 73-year-old gentleman with PMH significant for ongoing nicotine dependence, marijuana use, alcohol use, left carotid stenting, prior CVA, COPD, major depressive disorder, hypertension ,HLD who was brought into [facility] ED via EMS for altered mental status. Information being obtained from chart and staff. Grandson had reported that patient had been drinking alcohol with him the evening before, last seen normal at 12:00 AM and discovered him the following afternoon, laying on the floor with altered mental status. EMS activated.Witnessed seizure activity during EMS transport reported. Versed administered. Code stroke activated. patient was deemed not a candidate for tPA or thrombectomy. Patient was loaded with Keppra. Febrile on admission with Tmax of 102.7. * Brain CT did not report acute intracranial process, reported old left occipital infarct and chronic appearing periventricular white matter ischemic changes with atrophy. * CTA reported moderate stenosis between 50 and 69% right internal carotid artery, mild narrowing of less than 50% left internal carotid artery, displac ement of left posterior cerebral vasculature, abrupt cut off to account for the left occipital lobe infarct not identified. * Troponins 3.190, 17.500, 33.600, EKG changes reported. * Cardiology reviewed serial EKGs recommending emergent cardiac cath. activation. Patient reported agitated with significant change in mental status upon arrival to the cardiac Lock Setter. * Supervisor Cook Room discussed case with patient's daughter who is an RN and they declined cardiac catheterization and decided to proceed with medical treatment only- with heparin drip resumed.WBC 17.3, decreased to 13.4, hemoglobin 12, hematocrit 37, platelets 140. Sodium 140, potassium 3.8, chloride 114, bicarb 17, BUN 18, creatinine 1.35, glucose 155. Creatinine kinase 4292 .positive UA . * toxicology detected opiates, benzodiazepines and THC. * Serum alcohol level less than 10. * Hypotensive, received IV fluid resuscitation. Patient admitted to the ICU. Mechanical ventilator dependent, maintained on 50% FiO2/+5 of PEEP, continues on heparin drip, Levophed,Diprovan gtts. in addition to antibiotics. patient is in critical condition, septic with multiple with multisystem organ failure. Family is currently in a meeting with the academic advisement director. * ICU management as per academic advisement director. Maintain supportive care. evaluated by pulmonary, cardiology and neurology. Infectious disease on consult. prognosis poor. Family meeting in progress with academic advisement director. * 10/12/2023 yesterday family decided to proceed with comfort care. Patient terminally weaned, currently on morphine drip. Family at bedside, reports hospice nurse was in to see them. Patient appears comfortable. * 10/14/23 : Dr Sanchez presumed care: patient remains comfort measures. Patient ultimately later in the evening Assessment and plan * Sepsis with multisystem organ failure * Elevated troponin, acute [place].NSTEMI Evaluated by cardiology, medical management * Witnessed seizure in the ambulance, maintained on Keppra * Acute aspiration pneumonia * Acute hypoxic respiratory failure, mechanical ventilator dependent * septic shockHypotension, status post fluid resuscitation, pressor dependent * acute anoxic encephalopathy * Acute rhabdomyolysis * Acute renal failure * Urinary tract infection * Right ICA stenosis 50 to 69%,history of left carotid stent 2012; mild narrowing of less than 50% of the left ICA. 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
== END 2023-10-14 20:40 | disposition expired | DRG 871 ==
LOC: EC 13:31 → 3SCARD 17:18 → 2SICU 21:03 → 4SSUR 10-11 23:34
PROVIDERS: ADMIT Family Medicine; ATTEND Family Medicine
PROC: 5A1935Z Respiratory Ventilation, Less than 24 Consecutive Hours (ICD-10-PCS; 2023-10-10)
PROC: 03HY32Z Insertion of Monitoring Device into Upper Artery, Percutaneous Approach (ICD-10-PCS; 2023-10-10)
PROC: 4A133B1 Monitoring of Arterial Pressure, Peripheral, Percutaneous Approach (ICD-10-PCS; 2023-10-10)
PROC: 4A133J1 Monitoring of Arterial Pulse, Peripheral, Percutaneous Approach (ICD-10-PCS; 2023-10-10)
PROC: 3E033XZ Introduction of Vasopressor into Peripheral Vein, Percutaneous Approach (ICD-10-PCS; 2023-10-10)
PROC: 0BH17EZ Insertion of Endotracheal Airway into Trachea, Via Natural or Artificial Opening (ICD-10-PCS; principal; 2023-10-10 20:25)
DX: A41.9 Sepsis, unspecified organism (principal); I21.4 Non-ST elevation (NSTEMI) myocardial infarction; J69.0 Pneumonitis due to inhalation of food and vomit; J96.01 Acute respiratory failure with hypoxia; N17.0 Acute kidney failure with tubular necrosis; R65.21 Severe sepsis with septic shock; G93.1 Anoxic brain damage, not elsewhere classified; J44.0 Chronic obstructive pulmonary disease with (acute) lower respiratory infection; M62.82 Rhabdomyolysis; N39.0 Urinary tract infection, site not specified; Z66 Do not resuscitate; Z51.5 Encounter for palliative care; E78.5 Hyperlipidemia, unspecified; F17.200 Nicotine dependence, unspecified, uncomplicated; H91.90 Unspecified hearing loss, unspecified ear; I11.0 Hypertensive heart disease with heart failure; I50.9 Heart failure, unspecified; I65.23 Occlusion and stenosis of bilateral carotid arteries; S00.81XA Abrasion of other part of head, initial encounter; S00.83XA Contusion of other part of head, initial encounter; R56.9 Unspecified convulsions; W06.XXXA Fall from bed, initial encounter; Y92.009 Unspecified place in unspecified non-institutional (private) residence as the place of occurrence of the external cause; Z79.899 Other long term (current) drug therapy; Z91.199 Patient's noncompliance with other medical treatment and regimen due to unspecified reason; Z88.0 Allergy status to penicillin; Z88.2 Allergy status to sulfonamides
CPT/HCPCS: 36415; 70450; 70496; 70498; 71045; 71046; 80048; 80053; 80061; 80306; 80320; 81001; 82550; 82565; 82805; 83036; 83735; 84484; 85025; 85379; 85610; 85730; 87040; 87070; 87086; 87205; 93005; 93306; 94002; 94640; 95822; 96361; 96365; 96368; 96375; 99291